=== PATIENT | female | born 1935 | race Caucasian/White ===

== ENCOUNTER 2019-12-26 08:51 | Inpatient (IN) | payer MEDICARE, OTHER, SELFPAY ==
[2019-12-26] VITALS (24 sets, daily range): BP systolic 121–177; BP diastolic 53–103; PULSE 55–69; RESP 2–28; TEMP 36.4–36.7; O2SAT 82–100
--- NOTE | ~2019-12-26 | NM_ITS ---
NM pulmonary perfusion INDICATION: Shortness of breath. Elevated d-dimer. TECHNIQUE: 5.1 mCi Tc 99m MAA was injected intravenously for perfusion images. Multiple images were then acquired. COMPARISON: Chest x-ray dated 12/26/2019 FINDINGS: The comparison chest radiograph demonstrates no pulmonary infiltrates or pleural fluid. The re are small perfusion abnormalities of the right lung including the mid and apex regions. There are moderate. Fusion abnormalities of the left mid and upper lung zones. IMPRESSION: 1: Multiple bilateral perfusion abnormalities, largest in the left mid and upper lung. Reviewed, dictated and finalized at location A. IMPRESSION: 1: Multiple bilateral perfusion abnormalities, largest in the left mid and uppe r lung.
--- NOTE | ~2019-12-26 | XR_ITS ---
EXAMINATION: XR chest 1V portable DATE: 12/26/2019 10:00 INDICATION: Chest pain. TECHNIQUE: A single frontal view of the chest was obtained. COMPARISON: Chest 2 views 11/04/2018, abdomen MRI 01/21/2010 FINDINGS: There is chronic elevation of left hemidiaphragm. There are mild airspace opacities in the lower lung zones, left worse than right. No pleural effusion or pneumothorax. Cardiomegaly is noted. There is an old fracture of proximal right humerus with nonunion. IMPRESSION: 1. Mild airspace opacities in the lower lung zones, left worse than right, consistent with atelectasi s versus pneumonia. 2. Cardiomegaly. Reviewed, dictated and finalized at location A. IMPRESSION: 1. Mild airspace opacities in the lower lung zones, left worse than right, cons istent with atelectasis versus pneumonia. 2. Cardiomegaly.
--- NOTE | ~2019-12-26 | XR_ITS ---
EXAMINATION: XR barium swallow modified DATE: 12/28/2019 14:20 INDICATION: Dysphagia. TECHNIQUE: The patient was given barium-containing material of multiple consistencies to swallow by yoav howell speech pathologist while I performed fluoroscopy. Dose-area product was 1.318 Gy-cm2. 2 minutes fluoroscopy time FINDINGS: Oral Stage: Diffuse premature spillage to the piriform sinus Pharyngeal Phase: Reduced laryngeal elevation Reduced tongue base retraction Vallecular residue Laryngeal penetration Aspiration, silent Cervical/Esophageal Stage: Unremarkable IMPRESSION: Modified esophagram findings as above. Please refer to the speech therapy report [facility]. Reviewed, dictated and finalized at Location A. Reviewed, dictated and finalized at location A. IMPRESSION: Modified esophagram findings as above. Please refer to the speech t herapy report for specific recommendations.
--- NOTE | ~2019-12-26 | CT_ITS ---
EXAMINATION: CTA chest PE abdomen DATE: 12/27/2019 12:17 INDICATION: Shortness of breath. TECHNIQUE: Computed tomography angiography (CTA) of the chest was performed with 100 mL Omnipaque-350 intravenous contrast timed to evaluate the pulmonary arteries. Coronal maximum intensity projection 3D-reconstructions were created by the technologist. Computed tomography (CT) of the abdomen was perf ormed with intravenous contrast. Automated exposure control and iterative reconstruction technique we re employed. The dose-length product was 1622.73 mGy-cm. COMPARISON: Chest CT 12/26/2019 FINDINGS: CTA chest: Motion artifact is noted. There is mild atelectasis bilaterally. There is mild scarring in paraspinal right lower lobe. There is chronic elevation of left hemidiaphragm. There is a 3 mm nodul e in right upper lobe, likely benign. There is mosaic attenuation in the lungs, likely small airways disease. A calcified right lung nodule and calcified right hilar lymph nodes are consistent with old granulomatous disease. No pleural effusion. There is a 2.3 cm nodule in right thyroid lobe, likely ne eding no further evaluation given the patient's age. Cardiomegaly is noted. No pericardial effusion. There is no pulmonary embolus. There is severe thoracic spondylosis. There is a hemangioma in T12 lazaro tebral body. CT abdomen: An 8 mm low-attenuation mass in the liver is too small to characterize, but likely a cyst . There are changes of cholecystectomy. The spleen is small. The pancreas, adrenal glands, and left k idney are normal. There is a 7 mm cyst in right kidney. There is diverticulosis of the colon without evidence of diverticulitis. There are no dilated loops of bowel. There are no pathologically enlarged lymph nodes. There is no free intraperitoneal fluid. There are chronic compression fractures of L2 a nd L3. There is moderate lumbar spondylosis. IMPRESSION: 1. No pulmonary embolus. 2. Mild scarring in paraspinal right lower lobe. 3. Mosaic attenuation in the lungs, likely small airways disease. 4. Chronic elevation of left hemidiaphragm. 5. Cardiomegaly. Reviewed, dictated and finalized at location A.
--- NOTE | ~2019-12-26 | CT_ITS ---
EXAMINATION:CT chest wo con DATE: 12/26/2019 13:18 INDICATION: Shortness of breath. TECHNIQUE: Computed tomography (CT) of the chest was performed without intravenous contrast. Automate d exposure control and iterative reconstruction technique were employed. The dose-length product (DLP ) was 214.93 mGy-cm. COMPARISON: Chest single view 12/26/2019 FINDINGS: Motion artifact is noted. There is mild scarring in paraspinal right lower lobe. There is c hronic elevation of left hemidiaphragm. There is mild atelectasis bilaterally. Calcified right hilar lymph nodes are consistent with old granulomatous disease. No pleural effusion. There is a 2.3 cm nod ule in right thyroid lobe, likely needing no further evaluation given the patient's age. Cardiomegaly is noted. No pericardial effusion. There are changes of cholecystectomy. There is severe thoracic sp ondylosis. There are chronic compression fractures of T12 on L1. There is levocurvature of upper thor acic spine. There is a hemangioma in T2 vertebral body. IMPRESSION: 1. Mild scarring in paraspinal right lower lobe. 2. Chronic elevation of left hemidiaphragm. 3. Cardiomegaly. Reviewed, dictated and finalized at location A.
--- NOTE | ~2019-12-26 | US_ITS ---
EXAMINATION: US venous doppler [facility] DATE: 12/27/2019 12:02 INDICATION: Lower limb edema. TECHNIQUE: Grayscale ultrasound images without and with compression and Doppler ultrasound images of the bilateral lower extremity veins were obtained. COMPARISON: Ultrasound 09/22/2012 FINDINGS: The visualized portions of right common femoral vein, profunda (deep) femoral vein, femoral vein, pop liteal vein, posterior tibial veins, and greater saphenous vein outflow are patent. The visualized portions of left common femoral vein, profunda femoral vein, femoral vein, popliteal v ein, posterior tibial veins, and greater saphenous vein outflow are patent. IMPRESSION: 1. No deep venous thrombosis. Reviewed, dictated and finalized at location A.
--- NOTE | 2019-12-26 09:23 | PC.NURSE ---
Pt voided via bedpan. Note patient is alert, oriented, and friendly since her son has arrived. States she knows she's waiting to maybe go somewhere else. Kristian from [employer] states has faxed papers to [facility] and is hoping to hear back in approx 1 hr.
--- NOTE | 2019-12-26 09:26 | ED.SOB ---
HPI - SOB/Dyspnea General Chief Complaint: Shortness of Breath/Dyspnea Stated Complaint: SOB Time Seen by Provider: 12/26/19 09:24 Source: patient and EMS Mode of arrival: EMS Limitations: no limitations History of Present Illness HPI Narrative: Patient is an 84-year-old female brought in by EMS from a longterm due to possible aspiration low O2 sat. Per EMS, was told that she could have aspirated her food last night at the longterm and when they checked her oxygen saturation that it was low. Patient was placed on oxygen and route by EMS and now patient has no complaints, states that she is feeling better now that she has oxygen. Patient Denies any chest pain, shortness of breath, abdominal pain, nausea vomiting or fever. Related Data Home Medications Medication Instructions Recorded Confirmed cholecalciferol (vitamin D3) 125 5,000 unit PO DAILY 04/26/19 mcg (5,000 unit) capsule citalopram 20 mg tablet 20 mg PO DAILY 04/26/19 clopidogrel 75 mg tablet 75 mg PO DAILY 04/26/19 levetiracetam 500 mg tablet 500 mg PO Q12H 04/26/19 multivitamin 1 tablet PO DAILY 04/26/19 rosuvastatin 10 mg tablet 10 mg PO DAILY 04/26/19 sodium chloride 1 gram tablet 1,000 mg PO DAILY 04/26/19 torsemide 10 mg tablet 10 mg PO QAM 04/26/19 trazodone 50 mg tablet 50 mg PO .QHS tablet 04/26/19 vitamin E 400 unit capsule 400 unit PO DAILY 04/26/19 Systane (PF) 12/26/19 Allergies Allergy/AdvReac Type Severity Reaction Status Date / Time iodine Allergy Unknown Unknown Verified 12/26/19 09:10 meperidine Allergy Unknown Unknown Verified 12/26/19 09:10 Sulfa (Sulfonamide Allergy Unknown Unknown Verified 12/26/19 09:10 Antibiotics) Review of Systems Review of Systems: All systems reviewed & are unremarkable except as noted in HPI and below Constitutional: Constitutional: Denies body ache(s), Denies chills, Denies excessive sweating, Denies fatigue, Denies fever(s), Denies headache(s), Denies lethargy, Denies malaise, Denies weakness and Denies weight loss Eyes: Eyes: Denies blurry vision, Denies change in vision and Denies loss of vision ENT: Denies dizziness, Denies ear discharge, Denies headache(s), Denies lip swelling, Denies epistaxis, Denies nasal congestion, Denies neck pain, Denies throat swelling and Denies tongue swelling Cardiovascular: Cardiovascular: Denies chest pain, Denies chest pain at rest, Denies chest pain with activity, Denies diaphoresis, Denies rapid heart rate, Denies edema, Denies irregular heart rhythm, Denies lightheadedness, Denies palpitations, Denies dyspnea and Denies dyspnea on exertion Respiratory: Respiratory: Reports chest congestion, Reports cough, Denies hemoptysis, Reports dyspnea and Denies dyspnea on exertion Gastrointestinal: Gastrointestinal: Denies abdominal pain, Denies melena, Denies hematochezia, Denies diarrhea, Denies nausea, Denies vomiting and Denies hematemesis Musculoskeletal: Musculoskeletal: Denies abnormal gait, Denies deformity, Denies joint swelling, Denies limited range of motion, Denies neck pain and Denies numbness Neurologic: Denies Abnormal speech present, Denies abnormal gait, Denies confusion, Denies dizziness, Denies headache(s), Denies focal weakness, Denies loss of vision, Denies numbness, Denies Other visual disturbances, Denies Sensory deficit (Neuro) and Denies weakness Psychiatric: Psychiatric: Denies confusion, Denies depression, Denies auditory hallucinations, Denies homicidal ideation and Denies suicidal ideation Endocrine: Endocrine: Denies cold intolerance, Denies excessive sweating, Denies fatigue, Denies heat intolerance and Denies palpitations Hematologic/Lymphatic: Hematologic/Lymphatic: Denies easy bleeding and Denies easy bruising Allergic/Immunologic: Allergic/Immunologic: Denies lip swelling, Denies throat swelling and Denies tongue swelling [facility] Family History Family History (System 01/07/19 @ 13:13 by Araceli Christopher) Mother Hypertension
[2019-12-26] MEDS: ALBUTEROL SULFATE NEB 2.5 MG/0.5 ML INH 5 MG INHALATION (09:47)
[2019-12-26] MEDS: IPRATROPIUM BR 0.02% INH SOLN 0.5 MG/2.5 ML VIAL INHALATION (09:47)
--- NOTE | 2019-12-26 09:50 | PC.NURSE ---
RT at bedside for UDT.
[2019-12-26 09:52] LABS: Basophils Absolute Auto 0.1 K/mm3 (0.0-0.1); Eosinophils Absolute Auto 0.4 K/mm3 (0-0.3); Eosinophils Percent Auto 6.2 % (0-4.4); Hematocrit 43.4 % (37.0-47.0); Hemoglobin 14.6 g/dL (12.0-15.0); Immature Granulocyte Absolute 0.01 K/mm3 (0.00-0.031); Immature Granulocyte Percent A 0.2 % (0-0.5); Lymphocytes Absolute Auto 1.94 K/mm3 (0.9-3.2); Lymphocytes Percent Auto 32.6 % (18.3-44.2); Mean Corpuscular HGB Conc 33.6 g/dl (32-36); Mean Corpuscular Hemoglobin 30.9 pg (26-34); Mean Corpuscular Volume 91.8 fl (80-100); Mean Platelet Volume 9.7 fl (7.4-10.4); Monocytes Absolute Auto 0.7 K/mm3 (0.1-0.6); Monocytes Percent Auto 11.6 % (2.6-8.5); Neutrophils Absolute Auto 2.9 K/mm3 (1.3-6.7); Neutrophils Percent Auto 48.4 % (45.5-73.1); Platelet Count Result 249 k/mm3 (150-375); Red Blood Count 4.73 M/mm3 (4.2-5.4); Red Cell Distribution Width 13.1 % (11.5-14.5)
[2019-12-26 10:01] LABS: Prothrombin Time 12.9 Seconds (11.1-14.7)
[2019-12-26 10:04] LABS: Lactic Acid Reflex 1.2 mmol/L (0.7-2.1)
[2019-12-26 10:04] LABS: Anion Gap 5 mmol/L (8-16); Blood Urea Nitrogen 16 mg/dL (7-17); Calcium 9.6 mg/dL (8.4-10.2); Carbon Dioxide 32 mmol/L (22-30); Chloride 103 mmol/L (98-107); D Dimer 0.88 ug/mL (<0.48); Estimated Glomerular Filt Rate 53; Glucose 100 mg/dL (65-105); Potassium 4.9 mmol/L (3.4-5.0); Sodium 140 mmol/L (137-145)
[2019-12-26 10:16] LABS: Troponin I < 0.012 ng/mL (0.000-0.034)
[2019-12-26 13:02] LABS: Alveolar/Arterial O2 Gradient 25.1 mmHg; Base Excess ABG -1.7 mEq/l (+/-2.0); Carboxyhemoglobin 0.9 % THb (0-2.0); Fractional Inspired Oxygen 21 %; HCO3 ABG 23.5 mEq/l (22.0-26.0); Methemoglobin ABG 0.1 %THb (0-1.5); Oxygen Content ABG 19.3 %vol (16.0-22.0); Oxygen Saturation ABG 94.6 % (95.0-100.0); Oxyhemoglobin 93.7 % THb (90.0-100.0); PCO2 ABG 41.7 mmHg (35.0-45.0); PO2 ABG 74.7 mmHg (80.0-100.0); PO2 FiO2 Ratio Arterial Blood 3.56 %; Reduced Hemoglobin 5.3 %THb (0-5.0); Total Hemoglobin 14.6 g/dL (12.0-18.0); pH ABG 7.369 (7.350-7.450)
[2019-12-26 13:03] LABS: Device ROOM AIR; Site Drawn RIGHT BRACHIAL
--- NOTE | 2019-12-26 13:31 | PC.NURSE ---
Pt to nuclear med via stretcher.
--- NOTE | 2019-12-26 13:50 | PC.NURSE ---
Pt returns from [facility] unable to perform test due to no IV site.
--- NOTE | 2019-12-26 14:10 | PC.NURSE ---
Multiple attempts at IV access per DUGLAS Cruz unsuccessful. Dr. Dyer made aware. Pt continues to deny shortness of breath. spo2 95-99% room air.
--- NOTE | 2019-12-26 15:30 | PC.NURSE ---
Spoke with ELVIA dope dry house operator - unable to get IV in ER - multiple sticks and multiple attempts with ultrasound IV. Calling Barron in for IV - have 4 hours to arrive. Order placed for midline. Td vascular not available all week.
--- NOTE | 2019-12-26 18:28 | ADMGEN ---
This patient, Emmy Tavarez, was admitted to [facility] Surg Room 323-01. Patient/family oriented to hospital policies and general routines including ID bracelet, bed and alarms, visiting hours, pain management, procedures, bathroom and other care routines, personal items, smoking policy, room service/diet, and visiting hours. Information on how to activate the Rapid Response Team has been discussed. Patient/Family are encouraged to report perceived risks to care and to ask questions if they do not understand what they are told or what they should do.
[2019-12-26] MEDS: SALINE LOCK FLUSH 10 ML IV PUSH (21:32)
--- NOTE | 2019-12-26 22:09 | PM.IMHP ---
H&P: HPI History of Present Illness Date/Time: 12/26/19 22:09 Chief complaint: dyspnea Narrative: Emmy Tavarez is a 84 year old female Was brought to the hospital via ambulance from the senior care. They thought that maybe she had choked on food last night an aspirated her food last night when they checked her oxygen levels they were low. Patient was placed on oxygen and brought to the hospital. She had no chest pain. No shortness of breath. The patient has a history of dementia and is a very poor historian. She does not have a white count. However her D-dimer slightly elevated at 0.88. Your was having difficulty get an IV placed in her and they were unable to do a V/Q scan. Patient has iodine allergy and they were not able to do a CT scan at this time and +stated have IV access. Patient was admitted to observation and a PICC line was placed and they were able to do a V/Q scan. Troponin is negative. Patient does have some edema to her lower extremities. Chest x-ray was read as mild airspace opacities in the lower lung zones left worse than the right consistent with atelectasis versus pneumonia cardiomegaly. CT of the chest was performed without contrast. Mild scarring in pairs spinal right lower lobe. Chronic elevation left hemidiaphragm. Cardiomegaly. Patient was listed as a DNR. It looks like her daughter Kelly is listed as the power assistant county attorney. One of the staff members inform me that the patient's son wanted her to be a full code. However patient is listed as a DNR and the son is not listed as a power assistant county attorney. Patient's V/Q scan was read as multiple bilateral perfusion abnormalities largest in the left mid and upper lung. Patient was empirically placed on anticoagulation. Patient is admitted to observation and is on room air at this time. She is here due to the elevated D-dimer rule out PE she has observation on medical floor date of service 12/26/2019 Review of Systems Review of Systems: All systems reviewed & are unremarkable except as noted in HPI and below Constitutional: Constitutional: Reports as per HPI and Reports no additional constitutional complaints Eyes: Eyes: Reports as per HPI and Reports no additional eye complaints ENT: Reports system reviewed and no additional complaints, except as documented and Reports Normal hearing present Cardiovascular: Cardiovascular: Reports no additional cardiovascular complaints Respiratory: Respiratory: Reports no additional respiratory complaints and Reports no additional respiratory complaints Gastrointestinal: Gastrointestinal: Reports as per HPI and Reports no additional gastrointestinal complaints Musculoskeletal: Musculoskeletal: Reports no additional musculoskeletal complaints Integumentary/Breasts: Skin/Breast: Reports system reviewed and no additional complaints, except as docu and Reports as per HPI Neurologic: Reports system reviewed and no additional complaints, except as documented, Reports as per HPI and Reports Normal hearing present Psychiatric: Psychiatric: Reports no additional psychiatric complaints and Reports as per HPI Endocrine: Endocrine: Reports no additional endocrine complaints Hematologic/Lymphatic: Hematologic/Lymphatic: Reports no additional hematologic/lymphatic complaints Allergic/Immunologic: Allergic/Immunologic: Reports no additional allergic/immunologic complaints PMFSH Past Medical History Medical History Dementia Depression with anxiety History of brain tumor resected in 2001 and radiation History of DVT (deep vein thrombosis) History of meningioma Hyperlipidemia Seizure disorder Surgical History Surgical History H/O: hysterectomy History of appendectomy Hx of cholecystectomy Family History Family History Mother Hypertension Other Cerebrovascular acc
[2019-12-26] MEDS: levETIRAcetam 500MG/NACL 100ML 500 MG/100 ML BAG 400 MG IVPB (23:30)
--- NOTE | 2019-12-27 | ECHO_ITS ---
Patient Info Name: Emmy Tavarez Age: 84 years : 1935 Gender: Female Ht: 67 in Wt: 201 lbs BSA: 2.11 m2 HR: 60 bpm BP: 135 / 43 mmHg Heart Rhythm: Sinus Rhythm Technical Quality: Good Exam Date: 12/27/2019 4:04 PM Exam Location: [facility] Card Pulmonary Patient Status: Inpatient Admit Date: 12/26/2019 Staff Ordering Physician: Cara Alva NP Crusher Assembler: Shane Mc RDCS Attending Provider: Shelly Borja NP Referring Physician: DEREJE LAWLER Exam Type: CA echo dop color flow w con Study Info Indications R60.0 - Localized edema Complete two-dimensional, color flow and Doppler transthoracic echocardiogram is performed with contrast to opacify the left ventricle and to improve the deliniation of the left ventricle endocardial borders. Contrast/Agitated Saline Contrast/Ag. Saline: Definity Amount: 2.00 ml Administered By: Janett Pierson RN Existing IV Access: Yes History/Risk Factors Lower extremity edema; HTN. Summary 1. Left ventricular chamber dimension is normal. 2. Definity contrast administered improved wall motion interpretation. 3. Left ventricular systolic function is normal, estimated at 65-70%. 4. There is moderately increased left ventricular wall thickness. 5. The left ventricular diastolic function is abnormal. 6. E/e' 14 is mildly elevated. 7. Left atrial chamber dimension is mildly enlarged. 8. Right atrial chamber dimension is mildly enlarged. 9. There is moderate aortic valve sclerosis. 10. There is moderate aortic valve regurgitation. 11. There is mild aortic valve stenosis based on a peak velocity of 172.61 cm/s, mean gradient of 6 mmHg, and aortic valve area of 1.92 cm2. 12. There is mild mitral valve regurgitation. 13. Mild pulmonary hypertension, estimated pulmonary arterial systolic pressure is 43 mmHg. Left Ventricle Definity contrast administered improved wall motion interpretation. E/e' 14 is mildly elevated. Left ventricular chamber dimension is normal. Left ventricular systolic function is normal, estimated at 65-70%. There is moderately increased left ventricular wall thickness. The left ventricular diastolic function is abnormal. Right Ventricle Right ventricular chamber dimension is normal. Right ventricular systolic function is normal. Left Atria Left atrial chamber dimension is mildly enlarged. Right Atria Right atrial chamber dimension is mildly enlarged. Aortic Valve The aortic valve is trileaflet. There is moderate aortic valve sclerosis. There is mild aortic valve stenosis based on a peak velocity of 172.61 cm/s, mean gradient of 6 mmHg, and aortic valve area of 1.92 cm2. There is moderate aortic valve regurgitation. Pulmonic Valve There is no pulmonic regurgitation. Mitral Valve There is no mitral valve stenosis. There is mild mitral valve regurgitation. Tricuspid Valve There is no tricuspid valve regurgitation. Mild pulmonary hypertension, estimated pulmonary arterial systolic pressure is 43 mmHg. Pericardium/Pleural There is no pericardial effusion. Aorta The aortic root size at the sinus of Valsalva is normal. Left Ventricular Outflow Tract Name Value Normal LVOT 2D
[2019-12-27] MEDS: HYDROCORTISONE SODI SUCCINATE IVPB ×3 (00:09→11:11)
[2019-12-27] MEDS: DEXTROSE 5% IVPB ×3 (00:09→11:11)
--- NOTE | 2019-12-27 00:20 | PC.NURSE ---
@2612 this nurse called NICOL Mendoza and verified with Melanie RN that Emmy can receive the CTA that is scheduled for tomorrow. Consent signed by both nurses and placed in the patients chart.
[2019-12-27] MEDS: SALINE LOCK FLUSH 10 ML IV PUSH ×3 (05:26→20:56)
[2019-12-27 05:59] VITALS: BP 132/60; PULSE 58; RESP 20; TEMP 36.8; O2SAT 95
--- NOTE | 2019-12-27 11:21 | PCSTNOTE ---
ST attempted Bedside Swallow Evaluation; patient was receiving bed bath at the time (11:15) and is scheduled for a procedure at 12:00. Will attempt later today if patient availability allows or tomorrow.
[2019-12-27] MEDS: levETIRAcetam 500MG/NACL 100ML 500 MG/100 ML BAG 400 MG IVPB ×2 (12:40→20:52)
--- NOTE | 2019-12-27 12:58 | PM.IMPN ---
Progress Note: A&P Assessment and Plan (1) Elevated d-dimer: Code(s): R79.89 - Other specified abnormal findings of blood chemistry Status: Acute Assessment and Plan: the patient has a iodine allergy so we are giving her IV premedication of IV hydrocortisone and IV Benadryl. PICC line placed because she had no IV access. D-dimer could be benign. checking venous Dopplers today - remains pending. abnormality in the V/Q scan CTA showed: No pulmonary embolus.Mild scarring in paraspinal right lower lobe. Mosaic attenuation in the lungs, likely small airways disease.Chronic elevation of left hemidiaphragm. Cardiomegaly. empirically started her on subcu Lovenox. history of having a DVT in the past. (2) Seizure disorder: Code(s): G40.909 - Epilepsy, unspecified, not intractable, without status epilepticus Status: Chronic Assessment and Plan: patient had a brain tumor that was removed a resected in the past. home PO Keppra changed to IV Keppra . patient had a choking episode 2 nights ago currently NPO for testing swallow study ordered and pending. (3) Hyperlipidemia: Code(s): E78.5 - Hyperlipidemia, unspecified Status: Chronic Assessment and Plan: Patient is NPO at this time. She is on rosuvastatin at home. If she passes her swallow study with possibly restart all of her medications again. (4) Depression with anxiety: Code(s): F41.8 - Other specified anxiety disorders Status: Chronic Assessment and Plan: p.r.n. Ativan ordered for night-time currently NPO but will restart her home oral citalopram. (5) Dementia: Code(s): F03.90 - Unspecified dementia without behavioral disturbance Status: Chronic Assessment and Plan: Chronic and persistent. pleasant, not combative at this time. Patient is not aware of where she is her able to answer any questions at this time. swallow study ordered. Fall precautions in place. (6) Acute dyspnea: Code(s): R06.00 - Dyspnea, unspecified Status: Acute Assessment and Plan: Tolerating room air well. COVID swab pending as she is from a correction and will need one to return. no fevers noted. chest x-ray does not appear to be COVID elevated D-dimer but PE ruled out. empirically started on subcu Lovenox. dyspnea may be related to inappropriate swallow or reflux - started protonix choking history - no current evidence of aspiratory pneumonia swallow study pending. afebrile WBC 6.0 chest auscultation is clear and does not appear to have any consolidation at this time. Subjective Date/time seen: 12/27/19 12:58 Livier states that she is feeling better today. She has having some pain in her left leg behind her knee, but feels that it is related to her mattress and that she needs a better bed. She is not wanting pain medicine for that discomfort. She is not having any trouble communicating and talking. She is very hard of hearing. No sign of shortness of breath or difficulty getting air. She denies chest pain or chest pressure at this time. She is about to undergo a DVT ultrasound of her lower extremities as the electronic security technician is in the room with her as well. It is difficult to get a good history from her as she is a poor historian, getting confused about where she lives and her health history facts. Review of Systems Review of Systems: All systems reviewed & are unremarkable except as noted in HPI and below Constitutional: Constitutional: Reports as per HPI and Reports no additional constitutional complaints Eyes: Eyes: Reports as per HPI and Reports no additional eye complaints ENT: Reports system reviewed and no additional complaints, except as documented Cardiovascular: Cardiovascular: Reports no additional cardiovascular complaints Respiratory: Respiratory: Reports no additional respiratory complaints and Reports no additional respiratory complaints Gas
[2019-12-27 14:00] VITALS: BP 135/43; PULSE 53; RESP 20; TEMP 36.1; O2SAT 94
[2019-12-27 14:10] LABS: SARS-CoV-2 RNA PCR Negative
--- NOTE | 2019-12-27 15:41 | PCPTNOTE ---
Attempted PT evaluation however pt declined. Will attempt at a later date/time.
[2019-12-27] MEDS: PERFLUTREN LIPID MICROSPHERES 1.5 ML VIAL DILUTED TO 10 ML TOTAL VOLUME IV PUSH (16:34)
[2019-12-27] MEDS: SODIUM CHLORIDE 0.9% IV 250 ML 100 ML IV CONT (17:59)
[2019-12-27] MEDS: CHOLECALCIFEROL 1,000 UNITS TABLET 5000 UNITS PO (18:00)
[2019-12-27] MEDS: PANTOPRAZOLE SODIUM IV 40 MG VIAL IV PUSH (18:01)
[2019-12-27] MEDS: CLOPIDOGREL BISULFATE 75 MG TABLET PO (18:01)
[2019-12-27] MEDS: MULTIVITAMINS THERAPEUTIC TAB (*BKC) 1 TABLET PO (18:01)
[2019-12-27] MEDS: ROSUVASTATIN 10 MG TABLET PO (18:01)
[2019-12-27] MEDS: SODIUM CHLORIDE 1 GM TABLET PO (18:02)
[2019-12-27] MEDS: CITALOPRAM HYDROBROMIDE 20 MG TABLET PO (18:02)
[2019-12-27] MEDS: VITAMIN E 400 UNIT CAPSULE PO (19:42)
[2019-12-27] MEDS: TORSEMIDE 10 MG TABLET PO (19:42)
[2019-12-27] MEDS: LORazepam INJ (*CRX) 2 MG/ML VIAL 0.5 MG IV PUSH (20:52)
[2019-12-27] MEDS: traZODone HCL 50 MG TABLET PO (20:52)
[2019-12-27 22:00] VITALS: BP 115/42; PULSE 52; RESP 20; TEMP 37.2; O2SAT 95
[2019-12-28] MEDS: SALINE LOCK FLUSH 10 ML IV PUSH ×3 (05:10→21:19)
[2019-12-28 05:52] VITALS: BP 160/54; PULSE 52; RESP 18; TEMP 37; O2SAT 97
[2019-12-28 08:07] LABS: Alanine Aminotransferase 10 U/L (4-35); Albumin Level 3.4 g/dL (3.5-5.1); Alkaline Phosphatase 92 U/L (38-126); Anion Gap 4 mmol/L (8-16); Aspartate Amino Transferase 27 U/L (14-36); Bilirubin,Total 0.6 mg/dL (0.2-1.3); Blood Urea Nitrogen 23 mg/dL (7-17); Calcium 9.2 mg/dL (8.4-10.2); Carbon Dioxide 28 mmol/L (22-30); Chloride 104 mmol/L (98-107); Estimated CRCL calculation 47 ml/min; Estimated Glomerular Filt Rate 60; Glucose 100 mg/dL (65-105); Magnesium 2.1 mg/dL (1.6-2.3); Phosphorus 3.1 mg/dL (2.5-4.5); Potassium 3.6 mmol/L (3.4-5.0); Sodium 136 mmol/L (137-145)
[2019-12-28 08:10] LABS: Basophils Absolute Auto 0.1 K/mm3 (0.0-0.1); Basophils Percent Auto 0.5 % (0.2-1.2); Eosinophils Absolute Auto 0.1 K/mm3 (0-0.3); Eosinophils Percent Auto 0.9 % (0-4.4); Hematocrit 37.3 % (37.0-47.0); Hemoglobin 12.6 g/dL (12.0-15.0); Immature Granulocyte Absolute 0.03 K/mm3 (0.00-0.031); Immature Granulocyte Percent A 0.3 % (0-0.5); Lymphocytes Absolute Auto 2.48 K/mm3 (0.9-3.2); Lymphocytes Percent Auto 25.8 % (18.3-44.2); Mean Corpuscular HGB Conc 33.8 g/dl (32-36); Mean Corpuscular Hemoglobin 30.7 pg (26-34); Mean Platelet Volume 10.2 fl (7.4-10.4); Monocytes Percent Auto 10.2 % (2.6-8.5); Neutrophils Percent Auto 62.3 % (45.5-73.1); Platelet Count Result 237 k/mm3 (150-375); Red Cell Distribution Width 13.3 % (11.5-14.5); White Blood Count 9.6 K/mm3 (4.5-10.0)
[2019-12-28] MEDS: levETIRAcetam 500MG/NACL 100ML 500 MG/100 ML BAG 400 MG IVPB ×2 (09:11→21:11)
--- NOTE | 2019-12-28 10:07 | PM.IMPN ---
Progress Note: A&P Assessment and Plan (1) Elevated d-dimer: Code(s): R79.89 - Other specified abnormal findings of blood chemistry Status: Acute Assessment and Plan: PICC line placed because she had no IV access. D-dimer could be benign. venous Dopplers showed no DVTs abnormality in the V/Q scan CTA showed: No pulmonary embolus.Mild scarring in paraspinal right lower lobe. Mosaic attenuation in the lungs, likely small airways disease.Chronic elevation of left hemidiaphragm. Cardiomegaly. empirically on subcu Lovenox. history of having a DVT in the past. (2) Seizure disorder: Code(s): G40.909 - Epilepsy, unspecified, not intractable, without status epilepticus Status: Chronic Assessment and Plan: patient had a brain tumor that was removed a resected in the past. home PO Keppra changed to IV Keppra . patient had a choking episode 3 nights ago no signs or reports of seizure activity since admission Speech evaluation completed yesterday and dietary recommendations have been in place since then. Orders for modified barium swallow evaluation pending. (3) Hyperlipidemia: Code(s): E78.5 - Hyperlipidemia, unspecified Status: Chronic Assessment and Plan: Speech evaluation completed yesterday and dietary recommendations have been in place since then. Orders for modified barium swallow evaluation pending. on rosuvastatin at home. (4) Depression with anxiety: Code(s): F41.8 - Other specified anxiety disorders Status: Chronic Assessment and Plan: p.r.n. Ativan ordered for night-time restarted her home oral citalopram. (5) Dementia: Code(s): F03.90 - Unspecified dementia without behavioral disturbance Status: Chronic Assessment and Plan: Chronic and persistent. pleasant, not combative at this time. poor health historian Speech evaluation completed yesterday and dietary recommendations have been in place since then. Orders for modified barium swallow evaluation pending. Fall precautions in place. PT/OT ordered, ST yasmeen (6) Acute dyspnea: Code(s): R06.00 - Dyspnea, unspecified Status: Acute Assessment and Plan: RESOVED. Tolerating room air well. COVID Negative. Will return to her alf at discharge. no fevers noted. WBC 6.0 and 9.6 today chest auscultation is clear and does not appear to have any consolidation at this time. chest x-ray does not appear to be COVID elevated D-dimer at admission but PE ruled out. empirically started on subcu Lovenox. dyspnea may be related to inappropriate swallow or reflux - started oral protonix choking history - no current evidence of aspiratory pneumonia - Modified barium swallow evaluation pending. ST may need to be continued after discharge. (7) Choking episode: Code(s): R09.89 - Other specified symptoms and signs involving the circulatory and respiratory systems Status: Acute Assessment and Plan: Admitted due to dyspnea and choking episode was made NPO at admission Speech evaluation completed yesterday and dietary recommendations have been in place since then. Orders for modified barium swallow evaluation pending. Subjective Date/time seen: 12/28/19 10:07 Emmy is doing much better today, states she is feeling better than yesterday, and feels like she could go home today. She denies any trouble breathing, denies shortness of breath and dyspnea and was able to carry on a conversation with me. She is very very hard of hearing. She was getting up to a chair with the physical therapist at the time of my exam. She was able to hold herself in a sitting position on the side of the bed. Speech evaluation completed yesterday and dietary recommendations have been in place since then. Orders for modified barium swallow evaluation pending. Review of Systems Review of Systems: All systems reviewed & are unremarkable except as noted in H
[2019-12-28] MEDS: CITALOPRAM HYDROBROMIDE 20 MG TABLET PO (11:45)
[2019-12-28] MEDS: PANTOPRAZOLE SODIUM IV 40 MG VIAL IV PUSH (11:45)
[2019-12-28] MEDS: CLOPIDOGREL BISULFATE 75 MG TABLET PO (11:45)
[2019-12-28] MEDS: MULTIVITAMINS THERAPEUTIC TAB (*BKC) 1 TABLET PO (11:45)
[2019-12-28] MEDS: ROSUVASTATIN 10 MG TABLET PO (11:45)
[2019-12-28] MEDS: TORSEMIDE 10 MG TABLET PO (11:46)
[2019-12-28] MEDS: VITAMIN E 400 UNIT CAPSULE PO (11:46)
[2019-12-28 14:00] VITALS: BP 129/60; PULSE 56; RESP 20; TEMP 36.9; O2SAT 97
--- NOTE | 2019-12-28 16:32 | PCSTNOTE ---
Please refer to the Modified Barium Swallow Evaluation in the EMR.
--- NOTE | 2019-12-28 17:24 | P.PNCROSS_ITS ---
Event Note Event Note Event Note: Late this afternoon, I received a message from Sonja, the progressive care manager, for Emmy, that I should call her daughter Kelly at [phone]. I did just now get off the phone with Kelly. I informed her of her mother's modified barium swallow evaluation results. Kelly voiced understanding that Emmy is aspirating with liquids as well as with foods. Even with modified foods and modified liquids. She understands that no matter what modifications are made, that her mother is experiencing some amount of aspiration. Kelly understands that her mother is at risk for developing aspiratory pneumonia, other complications, and may have a difficult time recovering from any of those complications. I offered to place feeding tube, even an NG temporary feeding tube, but Kelly stated that her mother would not want that and that she and her siblings would not want that. Kelly voiced to me that she wanted her mother to return to the [facility] and to return to her original mechanical soft diet (Minced and Moist) that she had already been on there. When I discussed and recommended thickened liquids for her mother, Kelly stated that she would prefer her mother to go back on regular thin liquids. Kelly's reasoning was that [facility] thickened liquids at the [facility] and soon discovered that her mother was sneaking into the bathroom to drink water as Emmy hated the thickened liquids at mealtime. And Kelly felt that Emmy was at risk for becoming dehydrated as well because she was not getting enough fluid in and refusing the thickened liquids. The patient should start speech therapy, PT, and OT at the [facility], where she lives. She will continue on the same diet consistency she that she has been on at discharge.
[2019-12-28 22:00] VITALS: BP 138/55; PULSE 51; RESP 18; TEMP 36.3; O2SAT 96
[2019-12-29 06:00] VITALS: BP 140/82; PULSE 55; RESP 18; TEMP 36.7; O2SAT 98
[2019-12-29] MEDS: SALINE LOCK FLUSH 10 ML IV PUSH ×2 (07:13→14:36)
[2019-12-29 08:00] VITALS: PULSE 55; RESP 18; O2SAT 98
[2019-12-29] MEDS: PANTOPRAZOLE SODIUM IV 40 MG VIAL IV PUSH (10:11)
[2019-12-29] MEDS: levETIRAcetam 500MG/NACL 100ML 500 MG/100 ML BAG 400 MG IVPB (10:11)
[2019-12-29] MEDS: CITALOPRAM HYDROBROMIDE 20 MG TABLET PO (10:11)
[2019-12-29] MEDS: MULTIVITAMINS THERAPEUTIC TAB (*BKC) 1 TABLET PO (10:12)
[2019-12-29] MEDS: ROSUVASTATIN 10 MG TABLET PO (10:12)
[2019-12-29] MEDS: CHOLECALCIFEROL 1,000 UNITS TABLET 5000 UNITS PO (10:13)
[2019-12-29] MEDS: VITAMIN E 400 UNIT CAPSULE PO (10:13)
[2019-12-29] MEDS: SODIUM CHLORIDE 1 GM TABLET PO (10:15)
[2019-12-29] MEDS: TORSEMIDE 10 MG TABLET PO (10:16)
[2019-12-29] MEDS: CLOPIDOGREL BISULFATE 75 MG TABLET PO (10:19)
--- NOTE | 2019-12-29 12:53 | PCPTNOTE ---
Attempted to see patient for Physical Therapy this PM. Patient shook her head no and stated, Not right now. RN notified of patient refusing PT.
--- NOTE | 2019-12-29 13:05 | PM.DS ---
DS: Admitting Diagnosis Admitting Diagnosis Admitting Diagnosis: dyspnea DS: Discharge Diagnosis Discharge Diagnosis (1) Elevated d-dimer: Code(s): R79.89 - Other specified abnormal findings of blood chemistry Status: Acute Assessment and Plan: PICC line placed in ER because she had no IV access. D-dimer benight as PE and DVT ruled out. patient stated that her left leg is alway more swollen than her right leg for many many years. venous Dopplers showed no DVTs abnormality in the V/Q scan then CTA showed: No pulmonary embolus.Mild scarring in paraspinal right lower lobe. Mosaic attenuation in the lungs, likely small airways disease.Chronic elevation of left hemidiaphragm. Cardiomegaly. empirically on subcu Lovenox. history of having a DVT in the past. Continue her Plavix Very high fall risk and seizure risk for further anticoagulation. (2) Seizure disorder: Code(s): G40.909 - Epilepsy, unspecified, not intractable, without status epilepticus Status: Chronic Assessment and Plan: patient had a brain tumor that was removed a resected in the past. home PO Keppra changed to IV Keppra . patient had a choking episode 3 nights ago no signs or reports of seizure activity since admission Speech evaluation completed yesterday and dietary recommendations have been in place since then. modified barium swallow evaluation showed silent aspiration with all consistencies. patient's daugther Kelly was informed and daughter wanted her to continue her current dietary constistencies that she was already on at the facility where she lives. Kelly feels that thickened liquids could cause Emmy to seek water from the bathroom again and may lead to dehydration too often. (3) Hyperlipidemia: Code(s): E78.5 - Hyperlipidemia, unspecified Status: Chronic Assessment and Plan: Speech evaluation completed yesterday and dietary recommendations have been in place since then. discussed modified barium swallow evaluation above on rosuvastatin at home. (4) Depression with anxiety: Code(s): F41.8 - Other specified anxiety disorders Status: Chronic Assessment and Plan: p.r.n. Ativan ordered for night-time restarted her home oral citalopram. (5) Dementia: Code(s): F03.90 - Unspecified dementia without behavioral disturbance Status: Chronic Assessment and Plan: Chronic and persistent. pleasant, not combative at this time. poor health historian Speech evaluation completed yesterday and dietary recommendations have been in place since then. Orders for modified barium swallow evaluation pending. Fall precautions in place. PT/OT ordered, ST eval - ordered at discharge. (6) Acute dyspnea: Code(s): R06.00 - Dyspnea, unspecified Status: Acute Assessment and Plan: RESOVED. Tolerating room air well. COVID Negative. Will return to her retirement at discharge. no fevers noted. WBC 6.0 and 9.6 today chest auscultation is clear and does not appear to have any consolidation at this time. chest x-ray does not appear to be COVID elevated D-dimer at admission but PE ruled out. empirically started on subcu Lovenox. dyspnea may be related to inappropriate swallow or reflux - started oral protonix choking history - no current evidence of aspiratory pneumonia - Modified barium swallow evaluation pending. ST must be continued after discharge. (7) Choking episode: Code(s): R09.89 - Other specified symptoms and signs involving the circulatory and respiratory systems Status: Acute Assessment and Plan: Admitted due to dyspnea and choking episode was made NPO at admission Speech evaluation completed yesterday and dietary recommendations have been in place since then. modified barium swallow evaluation showed silent aspiration with all consistencies. patient's daugther Kelly was informed and daughter wanted her to continue her c
--- NOTE | 2019-12-29 13:42 | PC.NURSE ---
Called report to [facility]. Spoke with Anthony ARDON.
[2019-12-29 14:00] VITALS: BP 182/70; PULSE 92; RESP 16; TEMP 36.1; O2SAT 97
--- NOTE | 2019-12-29 14:10 | PC.NURSE ---
refused Flu shot. wants to wait till she gets back to facility.
== END 2019-12-29 19:24 | DRG 206 ==
LOC: ANHED 10:33 → ANH3MEDSUR 15:56
PROVIDERS: Nurse Practitioner; Admitting Provider Internal Medicine; Emergency Provider Emergency Medicine; PCP Family Medicine; Visit Provider Nurse Practitioner
DX: T17.820A Food in other parts of respiratory tract causing asphyxiation, initial encounter (principal); R13.10 Dysphagia, unspecified; R06.09 Other forms of dyspnea; Z20.828 Contact with and (suspected) exposure to other viral communicable diseases; G40.909 Epilepsy, unspecified, not intractable, without status epilepticus; E78.5 Hyperlipidemia, unspecified; F41.8 Other specified anxiety disorders; F03.90 Unspecified dementia, unspecified severity, without behavioral disturbance, psychotic disturbance, mood disturbance, and anxiety; R79.89 Other specified abnormal findings of blood chemistry; Z86.718 Personal history of other venous thrombosis and embolism; Z91.81 History of falling
CPT/HCPCS: 36415; 36569; 36600; 71045; 71250; 71275; 74160; 78580; 80048; 80053; 82375; 82805; 83050; 83605; 83735; 84100; 84484; 85025; 85380; 85610; 85730; 87635; 92526; 92610; 92611; 93970; 94640; 96361; 96365; 96366; 96375; 96376; 97161; 99285; A9270; A9540; C1751; C8929; C9113; C9803; G0378; J1720; J1953; J2060; J7050; Q9957; Q9967; U0003

== ENCOUNTER 2020-04-06 14:58 | Emergency (ER) | payer MEDICARE, OTHER, SELFPAY ==
--- NOTE | ~2020-04-06 | XR_ITS ---
XR shoulder LT min 2V, XR humerus LT 04/06/2020 16:01 (accession [id number]), 04/06/2020 16:00 (accession [id number]) Indication: Left shoulder and arm pain after fall Procedure: 3 views left shoulder and 2 views left humerus Comparison: No prior studies for comparison. Findings: There is deformity of the left humeral head, likely related to degenerative change or remot e trauma. No acute fracture is identified. There is moderate osteoarthritis of the left glenohumeral joint. Osteopenia. Impression: 1: No acute fracture. 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 Reviewed, dictated and finalized at location A. ISION PRINTING WORKER Impression: 1: No acute fracture. 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 Impression: 1: No acute fracture. 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
--- NOTE | ~2020-04-06 | XR_ITS ---
EXAMINATION: XR hand LT min 3V DATE: 04/06/2020 17:04 INDICATION: Left hand pain. TECHNIQUE: 4 views of left hand were obtained. COMPARISON: None. FINDINGS: The second through fifth fingers are flexed on all views, which decreases sensitivity. No f racture. There is diffuse osteopenia. There is mild osteoarthritis of triscaphe joint, first carpomet acarpal joint, and some of the interphalangeal joints. IMPRESSION: 1. Mild polyarticular osteoarthritis. Reviewed, dictated and finalized at location A. TING MATERIAL REMOVER
--- NOTE | ~2020-04-06 | CT_ITS ---
EXAMINATION: CT brain wo con DATE: 04/06/2020 15:51 INDICATION: Left face injury. TECHNIQUE: Computed tomography (CT) of the head was performed without intravenous contrast. The mA wa s adjusted according to patient size. Iterative reconstruction technique was employed. The dose-lengt h product was 605.33 mGy-cm. COMPARISON: Head CT 08/17/2018 FINDINGS: There are scattered areas of low attenuation in the cerebral white matter. There is chronic encephalomalacia in the left temporal lobe. 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 There is a mass centered in the left middle skull base measuring 5.5 x 3.9 cm with lytic change of the associ ated bone. There is no intracranial hemorrhage. There is ex vacuo dilatation of temporal horn of left lateral ventricle. There are likely changes of right ocular lens replacement surgery. There are mcdowell ges of left-sided craniotomy and mastoidectomy. There is mild mucosal thickening in the ethmoid sinus es. IMPRESSION: 1. Chronic encephalomalacia in the left temporal lobe and herman. 2. Stable moderate nonspecific cerebral white matter disease, which likely represents chronic small v essel ischemic disease. 3. Left middle skull base mass, stable from 08/17/2018, consistent with a meningioma. Reviewed, dictated and finalized at location A. L PUNCH OPERATOR IMPRESSION: 1. Chronic encephalomalacia in the left temporal lobe and herman. 2. Stable moderate nonspecific cerebral white matter disease, which likely repr esents chronic small vessel ischemic disease. 3. Left middle skull base mass, stable from 08/17/2018, consistent with a mening ioma.
--- NOTE | ~2020-04-06 | CT_ITS ---
EXAMINATION: CT facial bones wo con DATE: 04/06/2020 15:51 INDICATION: Left face injury. TECHNIQUE: Computed tomography (CT) of the facial bones and maxillofacial region was performed withou t intravenous contrast. Automated exposure control and iterative reconstruction technique were employ ed. The dose-length product was 278.53 mGy-cm. COMPARISON: Head CT 08/17/2018 FINDINGS: There are likely changes of right ocular lens replacement surgery. There are changes of lef t-sided craniotomy and mastoidectomy. There is a mass centered in the left middle skull base with inv olvement of the sella, sphenoid sinus, left cavernous sinus, left orbital apex, clivus, and left caprice ous apex. There is a permeative pattern of the skull base, consistent with changes of radiation thera py. There is severe cervical spondylosis. There are fracture deformities of the nasal bones, new from 08/17/2018. There is leftward deviation of the nasal septum. There is mild mucosal thickening in the paranasal sinuses. IMPRESSION: 1. Age-indeterminate fracture deformities of the nasal bones, new from 08/17/2018. 2. Stable mass centered in the left middle skull base, consistent with a meningioma. Reviewed, dictated and finalized at location A. CTOR MEDICAL SAFETY IMPRESSION: 1. Age-indeterminate fracture deformities of the nasal bones, new from 9. 2. Stable mass centered in the left middle skull base, consistent with a mening ioma.
[2020-04-06 14:53] VITALS: BP 108/66; PULSE 70; RESP 16; TEMP 36.7; O2SAT 94
[2020-04-06 17:41] VITALS: BP 113/46; PULSE 57; RESP 18; O2SAT 95
--- NOTE | 2020-04-06 19:02 | ED.GENADULT ---
HPI - General Adult General Chief complaint: Fall Stated complaint: fall 3 days ago/arm injury Time Seen by Provider: 04/06/20 15:13 Source: EMS and other (alf staff) Mode of arrival: ambulatory Limitations: no limitations History of Present Illness HPI narrative: Patient presents with chief complaint of left shoulder pain, left hand pain,and bruising to face after fall 2 days ago. Patient at her baseline is A&O 2 at her best. Her mentation has not changed. Patient denies any other he was areas of pain. Patient denies chest pain, shortness of breath, fever, chills or any other concerns. Related Data Home Medications Medication Instructions Recorded Confirmed citalopram 20 mg PO DAILY 04/06/20 04/06/20 clopidogrel 75 mg PO DAILY 04/06/20 04/06/20 levetiracetam 250 mg PO BID 04/06/20 04/06/20 multivitamin [TAB A MATT] 1 tablet PO DAILY 04/06/20 04/06/20 naproxen sodium [All Day Pain 220 mg PO BID 04/06/20 04/06/20 Relief] polyethylene glycol ea MISCELLANEOUS 04/06/20 propylene glycol [Systane Complete] drp 04/06/20 rosuvastatin 10 mg PO DAILY 04/06/20 04/06/20 sodium chloride 1,000 mg PO DAILY 04/06/20 04/06/20 torsemide 10 mg PO QAM 04/06/20 04/06/20 trazodone 50 mg PO HS 04/06/20 04/06/20 Allergies Allergy/AdvReac Type Severity Reaction Status Date / Time meperidine [From Demerol] AdvReac Other Verified 04/06/20 15:38 Sulfa (Sulfonamide AdvReac Other Verified 04/06/20 15:38 Antibiotics) Review of Systems Review of Systems: Narrative: CONSTITUTIONAL: Denies fever, chills, or sweats. EYES: Denies visual changes, redness, or discharge. ENT: Denies rhinorrhea, congestion, sore throat, or otalgia. CARDIOVASCULAR: Denies chest pain, palpitations, or edema. RESPIRATORY: Denies cough or dyspnea. GASTROINTESTINAL: Denies abdominal pain, nausea, vomiting, or diarrhea. GENITOURINARY: Denies dysuria or hematuria. SKIN: Reports facial bruise denies rash or itching. MUSCULOSKELETAL: Reports left shoulder, left hand denies back pain, joint pain, or myalgia. NEUROLOGIC: Denies headache, numbness, dizziness, or weakness. PSYCHIATRIC: Denies anxiety or depression. PMFSH Social History Social History Gender identity (if verbalized by the patient): Female Exam Narrative: Exam Narrative: GENERAL: well-nourished, and in no acute distress. HEAD: Normocephalic, atraumatic. EYES: PERRLA ENT: Nares clear, no rhinorrhea or epistaxis. Mucous membranes moist. Oropharynx without tonsillar hypertrophy exudate or other lesions. Bilateral TMs pearly puckett nonbulging. No hemotympanum. NECK: Supple. No adenopathy or masses. CHEST: Clear to auscultation. No respiratory distress. No wheezes rales or rhonchi HEART: Regular rate and rhythm. No murmur heard. Normal peripheral pulses. ABDOMEN: Soft, nontender, nondistended, normal active bowel sounds. EXTREMITIES: No outward signs of injury to left arm. Patent moving left arm. Mild bruising to left 2nd4 4th digits. Patient still moving them although decreased flexion, does not seem acute. Seems more arthritic movements/limitations. Normal range of motion. No lacerations or hematomas. SKIN: Small amount of bruising above left eye. Warm, dry, no rash. NEURO: No focal deficits. Alert and oriented to self and situation, not the best historian regarding fall. PSYCH: Normal mood and affect. Course Vital Signs Vital signs: Vital Signs Temperature 98.1 F 04/06/20 14:53 Pulse Rate 70 04/06/20 14:53 Respiratory Rate 16 04/06/20 14:53 Blood Pressure 108/66 04/06/20 14:53 Pulse Oximetry 94 04/06/20 14:53 Temperature 98.1 F 04/06/20 14:53 Pulse Rate 57 L 04/06/20 17:41 Respiratory Rate 18 04/06/20 17:41 Blood Pressure 113/46 L 04/06/20 17:41 Pulse Oximetry 95 04/06/20 17:41 Medical Decision Making MDM Narrative Medical decision making narrative: Patient does not have any findings of acute fractures. CTs are negative for acute findings. P
[2020-04-06 19:27] VITALS: BP 106/80; PULSE 84; RESP 16; O2SAT 97
[2020-04-06 20:36] VITALS: BP 134/71; PULSE 86; RESP 16; TEMP 36.2; O2SAT 96
== END 2020-04-06 20:38 ==
PROVIDERS: Emergency Provider Emergency Medicine; PCP Family Medicine
DX: S00.83XA Contusion of other part of head, initial encounter (principal); S60.022A Contusion of left index finger without damage to nail, initial encounter; S60.042A Contusion of left ring finger without damage to nail, initial encounter; R90.82 White matter disease, unspecified; M19.012 Primary osteoarthritis, left shoulder; M19.042 Primary osteoarthritis, left hand; G93.9 Disorder of brain, unspecified; W19.XXXA Unspecified fall, initial encounter
CPT/HCPCS: 70450; 70486; 73030; 73060; 73130; 99284

== ENCOUNTER 2020-04-13 09:12 | Inpatient (IN) | payer MEDICARE, OTHER, SELFPAY ==
[2020-04-13] VITALS (8 sets, daily range): BP systolic 106–135; BP diastolic 56–66; PULSE 81–103; RESP 16–25; TEMP 36.3–37.7; O2SAT 90–100; BMI 28.8
--- NOTE | ~2020-04-13 | XR_ITS ---
EXAMINATION: XR chest 1V portable INDICATION: Shortness of breath, COVID 19 TECHNIQUE: Portable AP chest at 0526 hours COMPARISON: 04/13/2020 FINDINGS: Bibasilar airspace opacities persist without significant change. There is slight decrease i n right upper lobe opacities. No pleural effusion or pneumothorax is identified. The cardiomediastina l silhouette is stable. 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 IMPRESSION: 1. Patchy bibasilar airspace opacities and improved right upper lobe opacities, consistent with atele ctasis versus pneumonia. Reviewed, dictated and finalized at location A. UCTION BROACHING MACHINE OPERATOR IMPRESSION: 1. Patchy bibasilar airspace opacities and improved right upper lobe opacities, consistent with atelectasis versus pneumonia.
--- NOTE | ~2020-04-13 | US_ITS ---
US renal BI 04/13/2020 16:51 Procedure: Acute renal failure Indication: Acute renal failure Comparison: No prior studies for comparison. Findings: Renal echotexture is normal bilaterally without hydronephrosis, contour deforming mass or r enal calculus. The right kidney measures 9.2 cm and left kidney measures 9.2 cm. Bladder within norm al limits. Impression: 1: Unremarkable renal ultrasound. No stones, masses or hydronephrosis. Reviewed, dictated and finalized at location B. ROL ROOM SUPERVISOR Impression: 1: Unremarkable renal ultrasound. No stones, masses or hydronephrosis.
--- NOTE | ~2020-04-13 | MR_ITS ---
EXAMINATION: MR brain/brain stem wo con EXAM DATE: 04/20/2020 18:44 INDICATION: COVID. Weakness. Meningioma. TECHNIQUE: Magnetic resonance imaging (MRI) of the brain/brain stem obtained without contrast. Stephy weber T1, axial diffusion, gradient echo (T2*), T1, T2, FLAIR sequences obtained. Correlation is made t o head CT 04/14/2020. FINDINGS: Skull base mass infiltrating the clivus, sphenoid sinus, sella turcica and encasing the lef t internal carotid artery. Surgical changes from left temporal and mastoid craniotomy with large amou nt of underlying left temporal encephalomalacia. There are no areas of restricted diffusion to suggest acute infarction. There is no acute hemorrhage seen on the T2*, a hemosiderin sensitive sequence. There is mild to moderate periventricular and sub cortical T2/FLAIR signal hyperintensity, nonspecific but probably related to small vessel ischemic di sease (microangiopathy). There is moderate prominence of the sulci and ventricles related to cerebr al atrophy. There are no extra-axial collections. Flow voids are seen in the cerebral arteries on the T2-weighted sequences consistent with their expected patency. Patient has had right-sided ocular lens surgery. IMPRESSION: 1. No acute intracranial findings. 2. Chronic skull base mass, left temporal craniotomy and underlying encephalomalacia. 3. Microangiopathy and cerebral atrophy. Reviewed, dictated and finalized at location A. TIONSHIP MANAGER IMPRESSION: 1. No acute intracranial findings. 2. Chronic skull base mass, left temporal craniotomy and underlying encephalom alacia. 3. Microangiopathy and cerebral atrophy.
--- NOTE | ~2020-04-13 | US_ITS ---
EXAMINATION: US venous doppler [facility] DATE: 04/13/2020 16:51 INDICATION: Left lower limb pain and swelling TECHNIQUE: Grayscale ultrasound images without and with compression and Doppler ultrasound images of the bilateral lower extremity veins were obtained. COMPARISON: None. FINDINGS: The visualized portions of right common femoral vein, profunda (deep) femoral vein, femoral vein, pop liteal vein, posterior tibial veins, peroneal veins, gastrocnemius vein and greater saphenous vein ou tflow are patent. Noncompressible deep venous thrombosis in the left profunda (deep) femoral vein as well as in the dis domingo left femoral and popliteal veins. The visualized portions of left common femoral vein, the proxim al to mid femoral vein and greater saphenous vein outflow are patent. At patient's request the study was terminated prior to evaluation of the veins at the left calf. IMPRESSION: 1. Deep venous thrombosis in the left profunda femoral, femoral and popliteal veins. Findings were d iscussed with Fernando Coleman, the nurse caring for the patient, at 5:00 PM. 2. No deep venous thrombosis in the right lower limb. Reviewed, dictated and finalized at location A. RD LABEL INTERNSHIP IMPRESSION: 1. Deep venous thrombosis in the left profunda femoral, femoral and popliteal veins. Findings were discussed with Fernando Coleman, the nurse caring for the nicol ent, at 5:00 PM. 2. No deep venous thrombosis in the right lower limb.
--- NOTE | ~2020-04-13 | CT_ITS ---
EXAMINATION: CT brain wo con DATE: 04/14/2020 09:16 INDICATION: Confusion TECHNIQUE: Computed tomography (CT) of the head was performed without intravenous contrast. The mA wa s adjusted according to patient size. Iterative reconstruction technique was employed. Exam dose: 68 1.00 mGy-cm total exam DLP. COMPARISON: April 06, 2020 CT brain FINDINGS: Postoperative change from left craniotomy, with chronic underlying left temporal encephalom alacia. No intracranial mass lesion or hemorrhage. No midline shift or mass effect effect. No subdural or epi dural hematoma. IMPRESSION: No acute intracranial finding or significant change since 04/06/2020 Reviewed, dictated and finalized at Location A. Reviewed, dictated and finalized at location A. RINTENDENT DRILLING
--- NOTE | ~2020-04-13 | XR_ITS ---
XR chest 1V portable 04/13/2020 10:04 Indication: Covid Infection Procedure: AP portable chest Comparison: Comparison to multiple prior studies sequentially, with oldest reviewed study dated 02/01. Findings: Patchy bilateral airspace disease, compatible with pneumonia. Cardiomegaly. No significant effusion. No pneumothorax. Impression: 1: Patchy bilateral airspace disease, compatible with pneumonia. Reviewed, dictated and finalized at location B. OOR STUDIES PROFESSOR Impression: 1: Patchy bilateral airspace disease, compatible with pneumonia.
--- NOTE | ~2020-04-13 | CT_ITS ---
EXAMINATION: CT shoulder LT wo con DATE: 04/14/2020 09:15 INDICATION: Left shoulder pain post fall TECHNIQUE: High resolution computed tomography (CT) of the left was performed without intravenous con trast. Additional sagittal and coronal reconstructions were performed. Automated exposure control and iterative reconstruction technique were employed. The dose-length product was 925.13 mGy-cm. COMPARISON: Left shoulder radiographs dated 04/06/[address] dated 12/27/2019 FINDINGS: Bone alignment is normal. No fracture. Severe left glenohumeral osteoarthritis with severe nonuniform joint space narrowing and mild subarticular cystic change at the central aspect of the humeral head and at the posterior superior aspect of the glenoid. Prominent marginal osteophytes along the humeral head and posterior glenoid. Small glenohumeral joint effusion. Moderate acromioclavicular osteoarthr itis. Mild calcific tendinitis at the distal infraspinatus tendon. Mild mosaic attenuation the visual ized left lung consistent with small airway disease. No interval change in a likely benign 4 mm left apical nodule. Left basilar atelectasis with chronic elevation of the left hemidiaphragm. Moderate th oracic spondylosis. T2 and T10 hemangiomas. IMPRESSION: 1. Severe left glenohumeral osteoarthritis and moderate acromioclavicular osteoarthritis. No acute os seous abnormality. 2. Left infraspinatus calcific tendinitis. Reviewed, dictated and finalized at location A. ATTENDANT IMPRESSION: 1. Severe left glenohumeral osteoarthritis and moderate acromioclavicular osteo arthritis. No acute osseous abnormality. 2. Left infraspinatus calcific tendinitis.
--- NOTE | 2020-04-13 09:38 | ECG_ITS ---
Measurements Intervals [place] Rate: 92 P: 66 MO: 186 QRS: -62 QRSD: 121 T: 103 QT: 366 QTc: 453 Interpretive Statements SINUS RHYTHM ATRIAL PREMATURE COMPLEX RSR' IN V1 OR V2, CONSIDER RIGHT VENTRICULAR HYPERTROPHY OR RIGHT VCD LEFT ANTERIOR FASCICULAR BLOCK LEFT VENTRICULAR HYPERTROPHY AND ST-T CHANGE ST-T WAVE ABNORMALITY IN HIGH LATERAL LEADS- CONSIDER ISCHEMIA BASELINE ARTIFACT- I, II, AVR, AVF, V1-V5 ABNORMAL ECG Electronically Signed On 04-13-2020 10:08:14 PREPARED FOODS SERVICE TEAM MEMBER by Josh Butler D.O.
[2020-04-13 09:46] LABS: Alveolar/Arterial O2 Gradient 69.8 mmHg; Base Excess ABG -4.1 mEq/l (+/-2.0); Fractional Inspired Oxygen 28 %; HCO3 ABG 20.1 mEq/l (22.0-26.0); Oxygen Content ABG 20.2 %vol (16.0-22.0); Oxygen Saturation ABG 96.7 % (95.0-100.0); Oxyhemoglobin 95.4 % THb (90.0-100.0); PCO2 ABG 34.6 mmHg (35.0-45.0); PO2 FiO2 Ratio Arterial Blood 3.18 %; pH ABG 7.383 (7.350-7.450)
[2020-04-13 09:47] LABS: Device NASAL CANNULA; Modified Allen's Test Pass; Site Drawn RIGHT RADIAL
[2020-04-13 10:02] LABS: Basophils Percent Auto 0.3 % (0.2-1.2); Eosinophils Percent Auto 0.1 % (0-4.4); Hematocrit 46.1 % (37.0-47.0); Hemoglobin 14.5 g/dL (12.0-15.0); Immature Granulocyte Absolute 0.03 K/mm3 (0.00-0.031); Immature Granulocyte Percent A 0.4 % (0-0.5); Lymphocytes Absolute Auto 2.37 K/mm3 (0.9-3.2); Lymphocytes Percent Auto 34.1 % (18.3-44.2); Mean Corpuscular HGB Conc 31.5 g/dl (32-36); Mean Corpuscular Volume 95.2 fl (80-100); Mean Platelet Volume 11.6 fl (7.4-10.4); Monocytes Absolute Auto 0.7 K/mm3 (0.1-0.6); Monocytes Percent Auto 10.5 % (2.6-8.5); Neutrophils Absolute Auto 3.8 K/mm3 (1.3-6.7); Neutrophils Percent Auto 54.6 % (45.5-73.1); Nucleated Red Blood Cells Perc 0.4 % (0.0-0.2); Platelet Count Result 175 k/mm3 (150-375); Red Blood Count 4.84 M/mm3 (4.2-5.4); Red Cell Distribution Width 15.8 % (11.5-14.5)
[2020-04-13 10:08] LABS: Add Urine Microscopic? YES; Appearance Urine Turbid (Clear); Bacteria Urine 4+ /hpf; Bilirubin Urine Negative (Negative); Blood Urine 1+ (Negative); Color Urine Yellow (Yellow); Glucose Urine UA Negative (Negative); Ketones Urine Negative (Negative); Leukocyte Esterase Ur 2+ LEU/UL (Negative); Mucus Urine Moderate /lpf; Nitrate Urine Negative (Negative); Protein Urine 2+ mg/dL (Negative); RBC Urine 51-75 /hpf (0-2); Specific Grav Ur 1.015 (1.001-1.035); Squamous Epithelial Cell Urine Moderate /hpf (Few); WBC Urine >75 /hpf
[2020-04-13 10:14] LABS: Alanine Aminotransferase 50 U/L (4-35); Albumin Level 3.6 g/dL (3.5-5.1); Alkaline Phosphatase 103 U/L (38-126); Anion Gap 10 mmol/L (8-16); Aspartate Amino Transferase 147 U/L (14-36); Bilirubin,Total 0.8 mg/dL (0.2-1.3); Blood Urea Nitrogen 81 mg/dL (7-17); Calcium 8.7 mg/dL (8.4-10.2); Carbon Dioxide 25 mmol/L (22-30); Chloride 125 mmol/L (98-107); Estimated CRCL calculation 8 ml/min; Estimated Glomerular Filt Rate 10; Glucose 106 mg/dL (65-105); INR 1.1; Potassium 4.3 mmol/L (3.4-5.0); Prothrombin Time 15.2 Seconds (11.1-14.7); Sodium 160 mmol/L (137-145)
[2020-04-13 10:15] LABS: Partial Thromboplastin Time 33.2 SECONDS (22.3-36.8)
[2020-04-13 10:18] LABS: Magnesium 2.3 mg/dL (1.6-2.3)
--- NOTE | 2020-04-13 10:40 | ED.GENADULT ---
HPI - General Adult General Chief complaint: Shortness of Breath/Dyspnea Stated complaint: SOB, COVID + Time Seen by Provider: 04/13/20 09:15 Source: EMS Mode of arrival: EMS Limitations: dementia History of Present Illness HPI narrative: Patient is 84 years old female brought to the emergency room by ambulance from [facility] because of lethargy and gradual increase of the level of weakness over the last few days. Patient tested positive for COVID-19 2 days ago. History of dementia, and DNR. Patient usually on no oxygen, oxygen saturation on room air 88%, currently on 3 L with saturation of 95%. No significant other at the bedside. Related Data Home Medications Medication Instructions Recorded Confirmed cholecalciferol (vitamin D3) 125 5,000 unit PO DAILY 04/26/19 12/26/19 mcg (5,000 unit) capsule citalopram 20 mg tablet 20 mg PO DAILY 04/26/19 12/26/19 multivitamin 1 tablet PO DAILY 04/26/19 12/26/19 vitamin E 400 unit capsule 400 unit PO DAILY 04/26/19 12/26/19 Systane (PF) 1 OPHTHALMIC (EYE) 12/26/19 clopidogrel 75 mg PO DAILY 04/06/20 04/06/20 levetiracetam 250 mg PO BID 04/06/20 04/06/20 naproxen sodium [All Day Pain 220 mg PO BID 04/06/20 04/06/20 Relief] polyethylene glycol ea MISCELLANEOUS 04/06/20 rosuvastatin 10 mg PO DAILY 04/06/20 04/06/20 sodium chloride 1,000 mg PO DAILY 04/06/20 04/06/20 torsemide 10 mg PO QAM 04/06/20 04/06/20 trazodone 50 mg PO HS 04/06/20 04/06/20 Allergies Allergy/AdvReac Type Severity Reaction Status Date / Time iodine Allergy Unknown Unknown Verified 04/13/20 09:26 meperidine Allergy Unknown Unknown Verified 04/13/20 09:26 Sulfa (Sulfonamide Allergy Unknown Unknown Verified 04/13/20 09:26 Antibiotics) acetaminophen [From Tylenol] Allergy Unknown Verified 04/13/20 09:26 Review of Systems Review of Systems: ROS unobtainable: Yes unobtainable due to medical condition and unobtainable due to mental status PMFSH Past Medical History Medical History Dementia Depression with anxiety History of brain tumor resected in 2001 and radiation History of DVT (deep vein thrombosis) History of meningioma Hyperlipidemia Seizure disorder Surgical History Surgical History H/O: hysterectomy History of appendectomy Hx of cholecystectomy Family History Family History Mother Hypertension Other Cerebrovascular accident Family history of arthritis Family history of mental disorder Social History Social History Social History: patient's paperwork from the [employer] dad she has her daughter Kelly listed as a durable power [place] attorney for healthcare. And also list [facility] care. The patient's orders code status was listed as a DNR. The orders were listed as of May of this year. However Otto son had notified the nursing staff here that he was a durable power [place] attorney for healthcare and wanted her to be a full code. No legal document has been provided to me at this time some could continue with the current orders. Smoking status: Unknown if ever smoked Second hand tobacco smoke exposure: No Alcohol intake: unknown Substance use: unknown Substance use type: does not use Gender identity (if verbalized by the patient): Female Spiritual care concerns: No Exam Narrative: Exam Narrative: General appearance: Well-developed, well-nourished, looks ill Skin: Normal color Head: Normocephalic, nontraumatic Neck: Supple, nontender Chest and respiratory: Mild diminution of air entry bilaterally mainly at the bases with few rales Heart: Regular rate/rhythm Abdomen: Soft, nontender, no organomegaly, quiet bowel sounds Neurologic: Arousable to verbal command
[2020-04-13 10:42] LABS: D Dimer > 20.00 ug/mL (<0.48)
[2020-04-13] MEDS: SODIUM CHLORIDE 0.9% IV 1,000 ML 999 ML IV CONT (10:42)
--- NOTE | 2020-04-13 12:27 | ADMGEN ---
This patient, Emmy Tavarez, was admitted to [address] [facility] Surg Room 330-01. Patient/family oriented to hospital policies and general routines including ID bracelet, bed and alarms, visiting hours, pain management, procedures, bathroom and other care routines, personal items, smoking policy, room service/diet, and visiting hours. Information on how to activate the Rapid Response Team has been discussed. Patient/Family are encouraged to report perceived risks to care and to ask questions if they do not understand what they are told or what they should do.
--- NOTE | 2020-04-13 13:24 | PM.IMHP ---
H&P: HPI History of Present Illness Date/Time: 04/13/20 13:24 Chief Complaint: Lethargy Narrative: Emmy Tavarez is a 84 year old female WHO IS A RESIDENT AT [facility]. SHE has a history of dementia and is a poor historian. She was brought To the emergency room today from the halfway due to lethargy and gradually increase in the level weakness over last 2 days. The patient did test positive for COVID-19 approximately 2 days ago. She does have history of dementia but does not wear oxygen chronically. Her oxygen level was found to be 88% and was placed on 3 L per nasal cannula oxygen and this improved her oxygen saturation is 97%. She does not typically wear oxygen at the halfway. No significant other was with her at the bedside. The patient has listed as a DNR. The patient previously had been to the emergency room here on 04/06/2020 where she was complaining of left shoulder pain. She had no acute injuries and was sent back to the halfway at that time. Greater than 20.00. Unable to perform a CT a at this time due to her creatinine level being 4.2. Her sodium level was 160. His felt that the patient was dehydrated she was started on normal saline. I am waiting for her repeat BMP. The patient was also found to be positive for a UTI. The patient does have a history of having recurrent UTIs. Urine and blood stools are pending. Of ceftriaxone in the emergency room. Patient is being admitted to inpatient status on the date of service of 04/13/2020 Review of Systems Review of Systems: ROS unobtainable: Yes unobtainable due to mental status Constitutional: Constitutional: Reports as per HPI and Reports no additional constitutional complaints Eyes: Eyes: Reports as per HPI and Reports no additional eye complaints ENT: Reports system reviewed and no additional complaints, except as documented and Reports Normal hearing present Cardiovascular: Cardiovascular: Reports no additional cardiovascular complaints Respiratory: Respiratory: Reports no additional respiratory complaints and Reports no additional respiratory complaints Gastrointestinal: Gastrointestinal: Reports as per HPI and Reports no additional gastrointestinal complaints Musculoskeletal: Musculoskeletal: Reports no additional musculoskeletal complaints Integumentary/Breasts: Skin/Breast: Reports system reviewed and no additional complaints, except as docu and Reports as per HPI Neurologic: Reports system reviewed and no additional complaints, except as documented, Reports as per HPI and Reports Normal hearing present Psychiatric: Psychiatric: Reports no additional psychiatric complaints and Reports as per HPI Endocrine: Endocrine: Reports no additional endocrine complaints Hematologic/Lymphatic: Hematologic/Lymphatic: Reports no additional hematologic/lymphatic complaints Allergic/Immunologic: Allergic/Immunologic: Reports no additional allergic/immunologic complaints PMFSH Past Medical History Medical History Dementia Depression with anxiety History of brain tumor resected in 2001 and radiation History of DVT (deep vein thrombosis) History of meningioma Hyperlipidemia Seizure disorder Surgical History Surgical History H/O: hysterectomy History of appendectomy Hx of cholecystectomy Family History Family History Mother Hypertension Other Cerebrovascular accident Family history of arthritis Family history of mental disorder Social History Social History (Updated 04/13/20 @ 13:35 by Cara Alva NP) Social History: The patient's living well has her listed as a DNR. The patient has a son and daughter listed is unclear who is the power deputy attorney general. She does have a living will that is a do not resuscitate. The patient is . She is from [facility].
[2020-04-13 13:59] LABS: Anion Gap 8 mmol/L (8-16); Blood Urea Nitrogen 82 mg/dL (7-17); Calcium 8.1 mg/dL (8.4-10.2); Carbon Dioxide 26 mmol/L (22-30); Chloride 126 mmol/L (98-107); Estimated CRCL calculation 10 ml/min; Estimated Glomerular Filt Rate 10; Glucose 112 mg/dL (65-105); Potassium 4.2 mmol/L (3.4-5.0); Sodium 160 mmol/L (137-145)
--- NOTE | 2020-04-13 14:28 | PCNSR ---
On 04/13/20, the student, Dilia Bowen, provided care and completed [facility] documentation on this patient. I have reviewed the student's documentation and agree with the findings.
--- NOTE | 2020-04-13 15:00 | PM.CNNEP ---
Assessment and Plan Assessment and plan (1) CHEVY (acute kidney injury): Code(s): N17.9 - Acute kidney failure, unspecified Status: Acute Assessment and Plan: suspect due in large part ot volume depletion/dehydration possibly worsened by diureitcs and NSAID therapy MULTIFOCAL LENS INSPECTOR agree with D5 1/2NS as this should provide some free water as well volume resuscitation check urine electrolytes, urine eosinophils, CPK, and renal ultrasound follow repeat labs and UOP (2) Hypernatremia: Code(s): E87.0 - Hyperosmolality and hypernatremia Status: Acute Assessment and Plan: indicative of a severe/significant free water deficit follow trend of sodium with IVFs may eventually need D5W IVFs (3) Pneumonia due to COVID-19 virus: Code(s): U07.1 - COVID-19; J12.82 - Pneumonia due to coronavirus disease 2019 Status: Acute Assessment and Plan: presumed etiology of hypoxia started on decadron no a candidate for remdesivir due to CHEVY/ARF follow respiratory status (4) Altered mental status: Code(s): R41.82 - Altered mental status, unspecified Status: Acute Assessment and Plan: despite history of dementia, baseline mentation better that current status suspect worsened mentation due to hypernatremia, COVID-19 infection, and UTI follow with ongoing therapy (5) Urinary tract infection: Qualifiers: Hematuria presence: without hematuria Urinary tract infection type: site unspecified Qualified Code(s): N39.0 - Urinary tract infection, site not specified Code(s): N39.0 - Urinary tract infection, site not specified Status: Acute Assessment and Plan: urinalysis highly suggestive on antibiotics follow-up on cultures Will continue to follow. History of Present Illness Reason for Consult Consult date: 04/13/20 Reason for consult: acute renal failure and hypernatremia Chief Complaint Chief complaint: covid pneumonia, uti, dehydration, chevy, History of Present Illness Narrative: All the information I have obtained from review of the electronic medical record as the patient is unable to provide me with any history due to her dementia/altered mental status. The patient is an 84-year-old female with a past medical history as outlined below who was brought to [facility] Emergency room from her detention due to lethargy as well as increasing weakness. According to the detention records, over the last 2-3 days, the patient's mentation has been worse with regard to increased lethargy associated with progressive weakness. She apparently did test positive for copious 19 approximately 2 days ago as well. Reportedly, she was hypoxic with an oxygen saturation of 88% but this improved with application of supplemental oxygen to 97% (she had to be placed on 3 L). Unfortunately, no other real significant history can be obtained given her current mental status. Workup and evaluation emergency room demonstrated lab abnormalities with a sodium of 160 and a creatinine of 4.2 as well as a urinalysis that was highly suggestive of a urinary tract infection. The concern was that these labs reflected a component of dehydration possibly worsened by and a urinary tract infection. Appropriate cultures were obtained, she was started on IV ceftriaxone, and started on IV fluids in the form of normal saline bolus followed by half normal saline an effort to provide both free water as well as volume resuscitation given her hypernatremia and acute kidney injury/acute renal failure. Renal consultation was requested due to her acute kidney injury/acute renal failure as well as her hypernatremia. From review of her records, the patient has a normal sodium and normal kidney function at baseline as of labs 4 months ago (December 2019) during her last hospitalization here. With the a for mentioned IV fluid institution, her sodium level has improved somewhat but sh
[2020-04-13 15:28] LABS: Sodium 158 mmol/L (137-145)
[2020-04-13 15:38] LABS: Erythrocyte Sedimentation Rate 37 mm/hr (0-20)
[2020-04-13 15:57] LABS: CRP 20.3 mg/dL (<1.0); Complement C3 141 mg/dL (88-165); Creatine Kinase 1216 U/L (30-135); Magnesium 2.3 mg/dL (1.6-2.3)
[2020-04-13] MEDS: DEXTROSE 5%/0.45% SOD CHL 1,000 ML 100 ML IV CONT (17:00)
[2020-04-13] MEDS: DEXAMETHASONE SOD PHOS INJ 4 MG/ML VIAL 6 MG IV PUSH (18:01)
[2020-04-13] MEDS: HEPARIN SODIUM 5,000 UNITS/ML VIAL 5500 UNITS IV PUSH (18:03)
[2020-04-13] MEDS: HEPARIN SOD/D5W 100 UNITS/ML 25,000 UNITS/250 ML BAG 12 UNITS IV CONT (18:04)
[2020-04-13 19:09] LABS: Sodium 156 mmol/L (137-145)
--- NOTE | 2020-04-13 20:50 | PC.NURSE ---
Pt from [facility] with diet order mechanical diet with thin liquids and ambulates with walker or wheelchair.
[2020-04-13] MEDS: levETIRAcetam 500MG/NACL 100ML 500 MG/100 ML BAG 400 MG IVPB (21:15)
[2020-04-13] MEDS: traZODone HCL 50 MG TABLET PO (21:36)
[2020-04-14] VITALS: BP 154/70; PULSE 77; RESP 22; TEMP 36.3; O2SAT 97
[2020-04-14 01:23] LABS: Partial Thromboplastin Time > 200.0 SECONDS (22.3-36.8)
--- NOTE | 2020-04-14 01:58 | PC.NURSE ---
0100 RIGHT RING FINGER IS NOTED TO BE BLEEDING. SMALL OPEN AREA NOTED TO THE LATERAL FINGER. pRESSURE HELD AND NO CHANGE IN BLEEDING. PRESSURE DRESSING APPLIED. HAND ELEVATED. 0130 HEPARIN PLACED ON HOLD FOR 1 HOUR DUE TO ELEVATED PTT.
[2020-04-14] MEDS: DEXTROSE 5%/0.45% SOD CHL 1,000 ML 100 ML IV CONT ×2 (02:43→15:02)
[2020-04-14 04:00] VITALS: BP 150/60; PULSE 69; RESP 22; TEMP 36.4; O2SAT 98
[2020-04-14 04:20] LABS: Creatinine Urine 171.4 mg/dL
[2020-04-14 04:23] LABS: Sodium Urine Random 28 meq/L
[2020-04-14 08:00] VITALS: BP 142/64; PULSE 73; RESP 24; TEMP 36.4; O2SAT 93
[2020-04-14 08:32] LABS: Basophils Percent Auto 0.2 % (0.2-1.2); Hematocrit 43.2 % (37.0-47.0); Hemoglobin 13.7 g/dL (12.0-15.0); Immature Granulocyte Absolute 0.05 K/mm3 (0.00-0.031); Immature Granulocyte Percent A 0.6 % (0-0.5); Lymphocytes Percent Auto 11.5 % (18.3-44.2); Mean Corpuscular HGB Conc 31.7 g/dl (32-36); Mean Corpuscular Hemoglobin 30.4 pg (26-34); Mean Platelet Volume 11.8 fl (7.4-10.4); Monocytes Absolute Auto 0.4 K/mm3 (0.1-0.6); Neutrophils Absolute Auto 7.3 K/mm3 (1.3-6.7); Neutrophils Percent Auto 83.7 % (45.5-73.1); Nucleated Red Blood Cells Perc 0.5 % (0.0-0.2); Platelet Count Result 156 k/mm3 (150-375); Red Cell Distribution Width 15.7 % (11.5-14.5); White Blood Count 8.7 K/mm3 (4.5-10.0)
[2020-04-14 08:44] LABS: Potassium 4.1 mmol/L (3.4-5.0)
[2020-04-14 08:45] LABS: Magnesium 2.3 mg/dL (1.6-2.3)
[2020-04-14 08:46] LABS: Albumin Level 3.4 g/dL (3.5-5.1); Anion Gap 6 mmol/L (8-16); Blood Urea Nitrogen 83 mg/dL (7-17); Calcium 8.6 mg/dL (8.4-10.2); Carbon Dioxide 24 mmol/L (22-30); Chloride 126 mmol/L (98-107); Estimated CRCL calculation 12 ml/min; Estimated Glomerular Filt Rate 12; Glucose 261 mg/dL (65-105); Phosphorus 3.7 mg/dL (2.5-4.5); Potassium 4.2 mmol/L (3.4-5.0); Sodium 156 mmol/L (137-145)
--- NOTE | 2020-04-14 08:48 | PC.NURSE ---
patient down to ct at 0848.
[2020-04-14 09:03] LABS: Partial Thromboplastin Time > 200.0 SECONDS (22.3-36.8)
[2020-04-14 09:11] LABS: Anion Gap 8 mmol/L (8-16); Blood Urea Nitrogen 87 mg/dL (7-17); Calcium 8.5 mg/dL (8.4-10.2); Carbon Dioxide 23 mmol/L (22-30); Chloride 125 mmol/L (98-107); Estimated CRCL calculation 12 ml/min; Estimated Glomerular Filt Rate 13; Glucose 259 mg/dL (65-105); Sodium 156 mmol/L (137-145)
--- NOTE | 2020-04-14 09:16 | PC.NURSE ---
patient back to floor from ct at 0915.
[2020-04-14] MEDS: CHOLECALCIFEROL 1,000 UNITS TABLET 5000 UNITS PO (09:39)
[2020-04-14] MEDS: CITALOPRAM HYDROBROMIDE 20 MG TABLET PO (09:41)
[2020-04-14] MEDS: DEXAMETHASONE SOD PHOS INJ 4 MG/ML VIAL 6 MG IV PUSH (09:41)
[2020-04-14] MEDS: polyethylene glycoL 3350 17 GM POWD.PACK PO (09:41)
[2020-04-14] MEDS: VITAMIN E 400 UNIT CAPSULE PO (09:41)
[2020-04-14] MEDS: MULTIVITAMINS THERAPEUTIC TAB (*BKC) 1 TABLET PO (09:41)
[2020-04-14] MEDS: levETIRAcetam 500MG/NACL 100ML 500 MG/100 ML BAG 400 MG IVPB ×2 (09:42→22:24)
[2020-04-14 09:44] LABS: Thyroid Stimulating Hormone Reflex 0.091 uIU/mL (0.465-4.68)
[2020-04-14 09:58] LABS: Hepatitis B Surface Antigen Negative (Negative)
[2020-04-14 10:03] LABS: HAV RESULT Negative (Negative); Hepatitis B Core IgM Result Negative (Negative)
[2020-04-14 10:14] LABS: Free T4 Free Thyroxine Reflex 1.55 ng/dL (0.78-2.19)
[2020-04-14 10:15] LABS: Hepatitis B Surface Anti Res Negative; Hepatitis C Virus Antibody Negative (Negative)
[2020-04-14 11:35] LABS: Total Triiodothyronine (T3) 0.82 NG/ML (0.97-1.69)
[2020-04-14 12:00] VITALS: BP 158/63; PULSE 76; RESP 20; TEMP 36.5; O2SAT 99
--- NOTE | 2020-04-14 13:05 | P.PNNP_ITS ---
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 * agree with D5 1/2NS as this should provide some free water as well volume resuscitation * urine electrolytes consistent with prerenal azotemia * renal ultrasound unremarkable * continue supportive therapy * follow repeat labs and UOP (2) Hypernatremia: Code(s): E87.0 - Hyperosmolality and hypernatremia Status: Acute Assessment and Plan: * indicative of a severe/significant free water deficit * follow trend of sodium with IVFs * may eventually need D5W IVFs -- however, she is getting some D5W from the carrier fluid from [facility] (3) Pneumonia due to COVID-19 virus: Code(s): U07.1 - COVID-19; J12.82 - Pneumonia due to coronavirus disease 2018 Status: Acute Assessment and Plan: * presumed etiology of hypoxia * started on decadron * no a candidate for remdesivir due to CHEVY/ARF * follow respiratory status (4) Altered mental status: Code(s): R41.82 - Altered mental status, unspecified Status: Acute Assessment and Plan: * despite history of dementia, baseline mentation reportedly better that current status * suspect worsened mentation due to hypernatremia, COVID-19 infection, and UTI * follow with ongoing therapy (5) DVT (deep venous thrombosis): Qualifiers: DVT location: lower extremity Affected thrombotic vein of extremity: femoral Chronicity: acute Laterality: left Qualified Code(s): I82.412 - Acute embolism and thrombosis of left femoral vein Code(s): I82.409 - Acute embolism and thrombosis of unspecified deep veins of unspecified lower extremity Status: Acute Assessment and Plan: * left femoral and popliteal DVT noted by dopplers * on heparin gtt (6) Urinary tract infection: Qualifiers: Hematuria presence: without hematuria Urinary tract infection type: site unspecified Qualified Code(s): N39.0 - Urinary tract infection, site not specified Code(s): N39.0 - Urinary tract infection, site not specified Status: Acute Assessment and Plan: * urinalysis highly suggestive * on antibiotics * follow-up on cultures Will continue to follow. Subjective Date/time seen: 04/14/20 13:05 Mental status has not changed all that much since admission; slow improvement in sodium level and kidney function with gentle IVF hydration; no other acute issues/events overnight to report. Exam Narrative: Exam Narrative: General: Elderly female in NAD Heart: normal S1 and S2; no rub Lungs: clear to auscultation Abdomen: soft, nontender, nondistended, positive bowel sounds Extremities: no cyanosis or clubbing; no edema Skin: warm and dry Objective Data Vital Signs Vital Signs: Vital Signs Temp Pulse Resp BP Pulse Ox 04/14/20 08:00 36.4 C 73 24 H 142/64 H 93 04/14/20 04:00 36.4 C 69 22 H 150/60 H 98 04/14/20 00:00 36.3 C L 77 22 H 154/70 H 97 04/13/20 20:00 36.4 C 81 24 H 135/66 95 04/13/20 17:00 36.8 C 81 16 123/57 L 96 Intake/Output Intake/Output: Intake & Output 04/11/20 04/12/20 04/13/20 04/14/20 23:59 23:59 23:59
--- NOTE | 2020-04-14 13:05 | PM.PNNEP ---
Progress Note: A&P Assessment and Plan (1) CHEVY (acute kidney injury): Code(s): N17.9 - Acute kidney failure, unspecified Status: Acute Assessment and Plan: suspect due in large part ot volume depletion/dehydration possibly worsened by diureitcs and NSAID therapy CHIROPRACTIC PRACTICE MANAGER agree with D5 1/2NS as this should provide some free water as well volume resuscitation urine electrolytes consistent with prerenal azotemia renal ultrasound unremarkable continue supportive therapy follow repeat labs and UOP (2) Hypernatremia: Code(s): E87.0 - Hyperosmolality and hypernatremia Status: Acute Assessment and Plan: indicative of a severe/significant free water deficit follow trend of sodium with IVFs may eventually need D5W IVFs -- however, she is getting some D5W from the carrier fluid from [facility] (3) Pneumonia due to COVID-19 virus: Code(s): U07.1 - COVID-19; J12.82 - Pneumonia due to coronavirus disease 2018 Status: Acute Assessment and Plan: presumed etiology of hypoxia started on decadron no a candidate for remdesivir due to CHEVY/ARF follow respiratory status (4) Altered mental status: Code(s): R41.82 - Altered mental status, unspecified Status: Acute Assessment and Plan: despite history of dementia, baseline mentation reportedly better that current status suspect worsened mentation due to hypernatremia, COVID-19 infection, and UTI follow with ongoing therapy (5) DVT (deep venous thrombosis): Qualifiers: DVT location: lower extremity Affected thrombotic vein of extremity: femoral Chronicity: acute Laterality: left Qualified Code(s): I82.412 - Acute embolism and thrombosis of left femoral vein Code(s): I82.409 - Acute embolism and thrombosis of unspecified deep veins of unspecified lower extremity Status: Acute Assessment and Plan: left femoral and popliteal DVT noted by dopplers on heparin gtt (6) Urinary tract infection: Qualifiers: Hematuria presence: without hematuria Urinary tract infection type: site unspecified Qualified Code(s): N39.0 - Urinary tract infection, site not specified Code(s): N39.0 - Urinary tract infection, site not specified Status: Acute Assessment and Plan: urinalysis highly suggestive on antibiotics follow-up on cultures Will continue to follow. Subjective Date/time seen: 04/14/20 13:05 Mental status has not changed all that much since admission; slow improvement in sodium level and kidney function with gentle IVF hydration; no other acute issues/events overnight to report. Exam Narrative: Exam Narrative: General: Elderly female in NAD Heart: normal S1 and S2; no rub Lungs: clear to auscultation Abdomen: soft, nontender, nondistended, positive bowel sounds Extremities: no cyanosis or clubbing; no edema Skin: warm and dry Objective Data Vital Signs Vital Signs: Vital Signs Temp Pulse Resp BP Pulse Ox 04/14/20 08:00 36.4 C 73 24 H 142/64 H 93 04/14/20 04:00 36.4 C 69 22 H 150/60 H 98 04/14/20 00:00 36.3 C L 77 22 H 154/70 H 97 04/13/20 20:00 36.4 C 81 24 H 135/66 95 04/13/20 17:00 36.8 C 81 16 123/57 L 96 Intake/Output Intake/Output: Intake & Output 04/11/20 04/12/20 04/13/20 04/14/20 23:59 23:59 23:59 23:59 Intake Total 1400 1125 Output Total 300 Balance 1400 825 Meds/Results Medications: Active Medications Generic Name Dose Route Start Last Admin Trade Name Freq PRN Reason Stop Dose Admin Citalopram Hydrobromide 20 mg 04/14/20 09:00 04/14/20 09:41 Citalopram Hydrobromide 20 Mg Tablet PO 20 mg DAILY JERI Administration Dexamethasone Sodium Phosphate 6 mg 04/13/20 13:15 04/14/20 09:41 Dexamethasone Sod Phos Inj 4 Mg/Ml Vial IV PUSH 04/22/20 09:01 6 mg DAILY JERI Administration Heparin Sodium (Porcine) 5,500 units 04/13/20 17:09 Hepar
--- NOTE | 2020-04-14 13:06 | PM.IMPN ---
Progress Note: A&P Assessment and Plan (1) Altered mental status: Qualifiers: Altered mental status type: unspecified Qualified Code(s): R41.82 - Altered mental status, unspecified Code(s): R41.82 - Altered mental status, unspecified Status: Acute Assessment and Plan: Patient with dementia presents with multiple medical issues detailed below. Suspect acute metabolic encephalopathy related to infection and/or electrolyte imbalances superimposed on her underlying dementia and debility may be contributing. CT brain 04/14 without acute intracranial abnormalities. (2) Pneumonia due to COVID-19 virus: Code(s): U07.1 - COVID-19; J12.82 - Pneumonia due to coronavirus disease 2018 Status: Acute Assessment and Plan: COVID positive 04/11/20. CXR shows evidence of bilateral pneumonia. Continue dexamethasone (day 2). Remdesivir is contraindicated at this time given her renal failure. Other supportive care can be added if she wakes enough to take oral medications or participate in incentive spirometry, etc. Will reassess each day when any of these therapies could be appropriately added. (3) Acute respiratory failure with hypoxia: Code(s): J96.01 - Acute respiratory failure with hypoxia Status: Acute Assessment and Plan: Tolerating 2L O2 nasal cannula. Wean supplemental oxygen as tolerated to keep O2 saturations > 90%. (4) DVT (deep venous thrombosis): Qualifiers: Affected thrombotic vein of extremity: femoral Chronicity: acute DVT location: lower extremity Laterality: left Qualified Code(s): I82.412 - Acute embolism and thrombosis of left femoral vein Code(s): I82.409 - Acute embolism and thrombosis of unspecified deep veins of unspecified lower extremity Status: Acute Assessment and Plan: Venous Doppler 04/13 demonstrates left femoral and popliteal DVT. She was started on heparin gtt. (5) Urinary tract infection: Qualifiers: Hematuria presence: without hematuria Urinary tract infection type: site unspecified Qualified Code(s): N39.0 - Urinary tract infection, site not specified Code(s): N39.0 - Urinary tract infection, site not specified Status: Acute Assessment and Plan: UA suggestive of UTI. Rocephin (day 2) with urine and blood cultures pending. (6) CHEVY (acute kidney injury): Code(s): N17.9 - Acute kidney failure, unspecified Status: Acute Assessment and Plan: Suspect this may be related to dehydration. Appear she was also naproxen at the correction, could have contributed. Appreciate nephrology recommendations. She remains on IV fluids with D5 half NS today. Renal ultrasound is unremarkable. Diuretics held. Monitor BMP daily. (7) Acute hypernatremia: Code(s): E87.0 - Hyperosmolality and hypernatremia Status: Acute Assessment and Plan: Suspect related to dehydration. Trend serum sodium with IV fluids mentioned above. Appreciate nephrology input. (8) Dementia: Qualifiers: Dementia behavioral disturbance: without behavioral disturbance Dementia type: unspecified type Qualified Code(s): F03.90 - Unspecified dementia without behavioral disturbance Code(s): F03.90 - Unspecified dementia without behavioral disturbance Status: Chronic Assessment and Plan: CT brain without acute intracranial abnormalities. Was able to take her home medications this morning. (9) Left shoulder pain: Qualifiers: Chronicity: unspecified Qualified Code(s): M25.512 - Pain in left shoulder Cod
[2020-04-14 15:58] LABS: Sodium 156 mmol/L (137-145)
[2020-04-14 16:00] VITALS: BP 140/61; PULSE 74; RESP 22; TEMP 37.1; O2SAT 97
[2020-04-14 17:03] LABS: Partial Thromboplastin Time > 200.0 SECONDS (22.3-36.8)
[2020-04-14] MEDS: HEPARIN SOD/D5W 100 UNITS/ML 25,000 UNITS/250 ML BAG 6 UNITS IV CONT (18:17)
[2020-04-14 20:00] VITALS: BP 154/74; PULSE 74; RESP 22; RESP 24; TEMP 36.4; O2SAT 94; O2SAT 97
[2020-04-14 20:36] LABS: Sodium 155 mmol/L (137-145)
[2020-04-14] MEDS: traZODone HCL 50 MG TABLET PO (22:24)
[2020-04-15] VITALS (7 sets, daily range): BP systolic 144–165; BP diastolic 59–71; PULSE 73–76; RESP 18–24; TEMP 36.4–37.4; O2SAT 94–97
[2020-04-15 00:56] LABS: Partial Thromboplastin Time 160.5 SECONDS (22.3-36.8)
[2020-04-15] MEDS: DEXTROSE 5%/0.45% SOD CHL 1,000 ML 100 ML IV CONT ×2 (03:56→15:43)
[2020-04-15 05:55] LABS: Basophils Percent Auto 0.2 % (0.2-1.2); Hematocrit 41.7 % (37.0-47.0); Hemoglobin 12.9 g/dL (12.0-15.0); Immature Granulocyte Absolute 0.16 K/mm3 (0.00-0.031); Lymphocytes Absolute Auto 1.22 K/mm3 (0.9-3.2); Lymphocytes Percent Auto 7.8 % (18.3-44.2); Mean Corpuscular HGB Conc 30.9 g/dl (32-36); Mean Corpuscular Hemoglobin 29.8 pg (26-34); Mean Corpuscular Volume 96.3 fl (80-100); Monocytes Absolute Auto 0.8 K/mm3 (0.1-0.6); Neutrophils Absolute Auto 13.6 K/mm3 (1.3-6.7); Nucleated Red Blood Cells Absolute Auto 0.1 K/mm3 (0.0-0.012); Nucleated Red Blood Cells Perc 0.6 % (0.0-0.2); Platelet Count Result 157 k/mm3 (150-375); Red Blood Count 4.33 M/mm3 (4.2-5.4); Red Cell Distribution Width 15.2 % (11.5-14.5); White Blood Count 15.7 K/mm3 (4.5-10.0)
[2020-04-15 06:12] LABS: Alanine Aminotransferase 45 U/L (4-35); Albumin Level 3.1 g/dL (3.5-5.1); Alkaline Phosphatase 108 U/L (38-126); Anion Gap 7 mmol/L (8-16); Aspartate Amino Transferase 98 U/L (14-36); Bilirubin,Total 0.5 mg/dL (0.2-1.3); Blood Urea Nitrogen 76 mg/dL (7-17); Calcium 8.6 mg/dL (8.4-10.2); Carbon Dioxide 22 mmol/L (22-30); Chloride 125 mmol/L (98-107); Estimated CRCL calculation 14 ml/min; Estimated Glomerular Filt Rate 16; Glucose 244 mg/dL (65-105); Magnesium 2.3 mg/dL (1.6-2.3); Sodium 154 mmol/L (137-145)
[2020-04-15] MEDS: DEXAMETHASONE SOD PHOS INJ 4 MG/ML VIAL 6 MG IV PUSH (08:09)
[2020-04-15] MEDS: polyethylene glycoL 3350 17 GM POWD.PACK PO (08:09)
[2020-04-15] MEDS: MULTIVITAMINS THERAPEUTIC TAB (*BKC) 1 TABLET PO (08:10)
[2020-04-15] MEDS: CHOLECALCIFEROL 1,000 UNITS TABLET 5000 UNITS PO (08:10)
[2020-04-15] MEDS: CITALOPRAM HYDROBROMIDE 20 MG TABLET PO (08:10)
[2020-04-15] MEDS: VITAMIN E 400 UNIT CAPSULE PO (08:10)
[2020-04-15 08:20] LABS: Partial Thromboplastin Time 75.7 SECONDS (22.3-36.8)
[2020-04-15] MEDS: levETIRAcetam 500MG/NACL 100ML 500 MG/100 ML BAG 400 MG IVPB ×2 (09:32→21:31)
--- NOTE | 2020-04-15 12:56 | PM.IMPN ---
Progress Note: A&P Assessment and Plan (1) Altered mental status: Qualifiers: Altered mental status type: unspecified Qualified Code(s): R41.82 - Altered mental status, unspecified Code(s): R41.82 - Altered mental status, unspecified Status: Acute Assessment and Plan: A bit improved today. Patient with dementia presents with multiple medical issues detailed below. Suspect acute metabolic encephalopathy related to infection and/or electrolyte imbalances superimposed on her underlying dementia and debility may be contributing. CT brain 04/14 without acute intracranial abnormalities. (2) Pneumonia due to COVID-19 virus: Code(s): U07.1 - COVID-19; J12.82 - Pneumonia due to coronavirus disease 2018 Status: Acute Assessment and Plan: COVID positive 04/11/20. CXR shows evidence of bilateral pneumonia. Continue dexamethasone (day 3). Remdesivir is contraindicated at this time given her renal failure. (3) Acute respiratory failure with hypoxia: Code(s): J96.01 - Acute respiratory failure with hypoxia Status: Acute Assessment and Plan: Tolerating 2L O2 nasal cannula. Wean supplemental oxygen as tolerated to keep O2 saturations > 90%. (4) DVT (deep venous thrombosis): Qualifiers: DVT location: lower extremity Affected thrombotic vein of extremity: femoral Chronicity: acute Laterality: left Qualified Code(s): I82.412 - Acute embolism and thrombosis of left femoral vein Code(s): I82.409 - Acute embolism and thrombosis of unspecified deep veins of unspecified lower extremity Status: Acute Assessment and Plan: Venous Doppler 04/13 demonstrates left femoral and popliteal DVT. She was started on heparin gtt. Anticipate transition to NOAC if her mental status improves enough to take oral medications reliably. Monitor for bleeding. (5) Urinary tract infection: Qualifiers: Hematuria presence: without hematuria Urinary tract infection type: site unspecified Qualified Code(s): N39.0 - Urinary tract infection, site not specified Code(s): N39.0 - Urinary tract infection, site not specified Status: Acute Assessment and Plan: Urine culture growing E coli. Continue rocephin (day 3). Blood cultures pending with no growth to date. (6) CHEVY (acute kidney injury): Code(s): N17.9 - Acute kidney failure, unspecified Status: Acute Assessment and Plan: Suspect this may be related to dehydration. Appear she was also naproxen at the correction, could have contributed. Appreciate nephrology recommendations. She remains on IV fluids with D5 half NS today. Renal ultrasound is unremarkable. Diuretics held. Monitor BMP daily. (7) Acute hypernatremia: Code(s): E87.0 - Hyperosmolality and hypernatremia Status: Acute Assessment and Plan: Improving slowly. Suspect related to dehydration. Trend serum sodium with IV fluids mentioned above. Appreciate nephrology input. (8) Dementia: Qualifiers: Dementia behavioral disturbance: without behavioral disturbance Dementia type: unspecified type Qualified Code(s): F03.90 - Unspecified dementia without behavioral disturbance Code(s): F03.90 - Unspecified dementia without behavioral disturbance Status: Chronic Assessment and Plan: CT brain without acute intracranial abnormalities. Continue home medications. (9) Left shoulder pain: Qualifiers: Chronicity: unspecified Qualified Code(s): M25.512 - Pain in left shoulder Code(s): M25.512 - Pain in left shoulder
--- NOTE | 2020-04-15 13:45 | PM.PNNEP ---
Progress Note: A&P Assessment and Plan (1) CHEVY (acute kidney injury): Code(s): N17.9 - Acute kidney failure, unspecified Status: Acute Assessment and Plan: suspect due in large part ot volume depletion/dehydration possibly worsened by diureitcs and NSAID therapy [employer] on D5 1/2NS as this should provide some free water as well volume resuscitation urine electrolytes consistent with prerenal azotemia renal ultrasound unremarkable continue supportive therapy follow repeat labs and UOP (2) Hypernatremia: Code(s): E87.0 - Hyperosmolality and hypernatremia Status: Acute Assessment and Plan: indicative of a severe/significant free water deficit follow trend of sodium with IVFs may eventually need D5W IVFs -- however, she is getting some D5W from the carrier fluid from heparin gtt encourage free water intake (as tolerated) now that mental status is better (3) Pneumonia due to COVID-19 virus: Code(s): U07.1 - COVID-19; J12.82 - Pneumonia due to coronavirus disease 2019 Status: Acute Assessment and Plan: presumed etiology of hypoxia started on decadron no a candidate for remdesivir due to CHEVY/ARF follow respiratory status (4) Altered mental status: Qualifiers: Altered mental status type: unspecified Qualified Code(s): R41.82 - Altered mental status, unspecified Code(s): R41.82 - Altered mental status, unspecified Status: Acute Assessment and Plan: despite history of dementia, baseline mentation reportedly better that current status suspect worsened mentation due to hypernatremia, COVID-19 infection, and UTI follow with ongoing therapy (5) DVT (deep venous thrombosis): Qualifiers: Affected thrombotic vein of extremity: femoral Chronicity: acute DVT location: lower extremity Laterality: left Qualified Code(s): I82.412 - Acute embolism and thrombosis of left femoral vein Code(s): I82.409 - Acute embolism and thrombosis of unspecified deep veins of unspecified lower extremity Status: Acute Assessment and Plan: left femoral and popliteal DVT noted by dopplers on heparin gtt (6) Urinary tract infection: Qualifiers: Hematuria presence: without hematuria Urinary tract infection type: site unspecified Qualified Code(s): N39.0 - Urinary tract infection, site not specified Code(s): N39.0 - Urinary tract infection, site not specified Status: Acute Assessment and Plan: urinalysis highly suggestive on antibiotics follow-up on cultures Will continue to follow. Subjective Date/time seen: 04/15/20 13:45 Mental status appears to be doing much better in comparison to yesterday; eating and drinking with assistance; no other acute issues or problems to report at this time. Exam Narrative: Exam Narrative: General: Elderly female in NAD Heart: normal S1 and S2; no rub Lungs: clear to auscultation Abdomen: soft, nontender, nondistended, positive bowel sounds Extremities: no cyanosis or clubbing; no edema Skin: warm and intact Objective Data Vital Signs Vital Signs: Vital Signs Temp Pulse Resp BP Pulse Ox 04/15/20 12:00 37.4 C 74 20 165/71 H 97 04/15/20 08:00 73 24 H 97 04/15/20 07:59 36.4 C 73 24 H 152/59 H 97 04/15/20 04:00 36.8 C 74 22 H 145/67 H 96 04/15/20 00:00 36.7 C 74 22 H 144/65 H 94 04/14/20 20:00 36.4 C L 74 22 H 154/74 H 94 04/14/20 16:00 37.1 C 74 22 H 140/61 97 Intake/Output Intake/Output: Intake & Output 04/12/20 04/13/20 04/14/20 04/15/20 23:59 23:59 23:59 23:59 Intake Total 1400 2625 2340 Output Total 800 600 Balance 1400 1825 1740 Meds/Results Medications: Active Medications Generic Name Dose Route Start Last Admin Trade Name Freq PRN Reason Stop Dose Admin Citalopram Hydrobromide 20 mg 04/14/20 09:00 04/15/20 08:10 Citalopram Hydrobromide 20 Mg Ta
--- NOTE | 2020-04-15 13:45 | P.PNNP_ITS ---
Progress Note: A&P Assessment and Plan (1) CHEVY (acute kidney injury): Code(s): N17.9 - Acute kidney failure, unspecified Status: Acute Assessment and Plan: * suspect due in large part ot volume depletion/dehydration * possibly worsened by diureitcs and NSAID therapy [employer] * on D5 1/2NS as this should provide some free water as well volume resuscitation * urine electrolytes consistent with prerenal azotemia * renal ultrasound unremarkable * continue supportive therapy * follow repeat labs and UOP (2) Hypernatremia: Code(s): E87.0 - Hyperosmolality and hypernatremia Status: Acute Assessment and Plan: * indicative of a severe/significant free water deficit * follow trend of sodium with IVFs * may eventually need D5W IVFs -- however, she is getting some D5W from the carrier fluid from heparin gtt * encourage free water intake (as tolerated) now that mental status is better (3) Pneumonia due to COVID-19 virus: Code(s): U07.1 - COVID-19; J12.82 - Pneumonia due to coronavirus disease 2019 Status: Acute Assessment and Plan: * presumed etiology of hypoxia * started on decadron * no a candidate for remdesivir due to CHEVY/ARF * follow respiratory status (4) Altered mental status: Qualifiers: Altered mental status type: unspecified Qualified Code(s): R41.82 - Altered mental status, unspecified Code(s): R41.82 - Altered mental status, unspecified Status: Acute Assessment and Plan: * despite history of dementia, baseline mentation reportedly better that current status * suspect worsened mentation due to hypernatremia, COVID-19 infection, and UTI * follow with ongoing therapy (5) DVT (deep venous thrombosis): Qualifiers: Affected thrombotic vein of extremity: femoral Chronicity: acute DVT location: lower extremity Laterality: left Qualified Code(s): I82.412 - Acute embolism and thrombosis of left femoral vein Code(s): I82.409 - Acute embolism and thrombosis of unspecified deep veins of unspecified lower extremity Status: Acute Assessment and Plan: * left femoral and popliteal DVT noted by dopplers * on heparin gtt (6) Urinary tract infection: Qualifiers: Hematuria presence: without hematuria Urinary tract infection type: site unspecified Qualified Code(s): N39.0 - Urinary tract infection, site not specified Code(s): N39.0 - Urinary tract infection, site not specified Status: Acute Assessment and Plan: * urinalysis highly suggestive * on antibiotics * follow-up on cultures Will continue to follow. Subjective Date/time seen: 04/15/20 13:45 Mental status appears to be doing much better in comparison to yesterday; eating and drinking with assistance; no other acute issues or problems to report at this time. Exam Narrative: Exam Narrative: General: Elderly female in NAD Heart: normal S1 and S2; no rub Lungs: clear to auscultation Abdomen: soft, nontender, nondistended, positive bowel sounds Extremities: no cyanosis or clubbing; no edema Skin: warm and intact Objective Data Vital Signs Vital Signs: Vital Signs Temp Pulse Resp BP Pulse Ox 04/15/20 12:00 37.4 C 74 20 165/71 H 97 04/15/20 08:00 73 24 H 97 04/15/20 07:59 36.4 C 73 24 H 152/59 H 97 04/15/20 04:00 36.8 C 74 22 H 145/67 H 96 04/15/20 00:00 36.7 C 74 22 H
[2020-04-15 15:25] LABS: Sodium 152 mmol/L (137-145)
[2020-04-15 16:47] LABS: Partial Thromboplastin Time 54.6 SECONDS (22.3-36.8)
[2020-04-15] MEDS: HEPARIN SOD/D5W 100 UNITS/ML 25,000 UNITS/250 ML BAG 7 UNITS IV CONT (17:01)
[2020-04-15] MEDS: HEPARIN SODIUM 5,000 UNITS/ML VIAL 5500 UNITS IV PUSH (17:03)
[2020-04-15] MEDS: traZODone HCL 50 MG TABLET PO (21:31)
[2020-04-15 23:46] LABS: Partial Thromboplastin Time 122.8 SECONDS (22.3-36.8)
[2020-04-16] VITALS (8 sets, daily range): BP systolic 149–173; BP diastolic 57–72; PULSE 64–78; RESP 16–20; TEMP 36.1–36.9; O2SAT 94–99
[2020-04-16] MEDS: DEXTROSE 5%/0.45% SOD CHL 1,000 ML 100 ML IV CONT (05:57)
[2020-04-16] MEDS: VITAMIN E 400 UNIT CAPSULE PO (08:43)
[2020-04-16] MEDS: CHOLECALCIFEROL 1,000 UNITS TABLET 5000 UNITS PO (08:43)
[2020-04-16] MEDS: polyethylene glycoL 3350 17 GM POWD.PACK PO (08:43)
[2020-04-16] MEDS: DEXAMETHASONE SOD PHOS INJ 4 MG/ML VIAL 6 MG IV PUSH (08:44)
[2020-04-16] MEDS: CITALOPRAM HYDROBROMIDE 20 MG TABLET PO (08:44)
[2020-04-16] MEDS: MULTIVITAMINS THERAPEUTIC TAB (*BKC) 1 TABLET PO (08:44)
--- NOTE | 2020-04-16 08:48 | PM.PNNEP ---
Progress Note: A&P Assessment and Plan (1) CHEVY (acute kidney injury): Code(s): N17.9 - Acute kidney failure, unspecified Status: Acute Assessment and Plan: suspect due in large part ot volume depletion/dehydration urine electrolytes consistent with prerenal azotemia renal ultrasound unremarkable creatinine is better. follow repeat labs and UOP (2) Hypernatremia: Code(s): E87.0 - Hyperosmolality and hypernatremia Status: Acute Assessment and Plan: indicative of a severe/significant free water deficit sodium still high and creatinine is much better and bp okay, so witll change to d5w. (3) Pneumonia due to COVID-19 virus: Code(s): U07.1 - COVID-19; J12.82 - Pneumonia due to coronavirus disease 2019 Status: Acute Assessment and Plan: presumed etiology of hypoxia started on decadron no a candidate for remdesivir due to CHEVY/ARF follow respiratory status (4) Altered mental status: Qualifiers: Altered mental status type: unspecified Qualified Code(s): R41.82 - Altered mental status, unspecified Code(s): R41.82 - Altered mental status, unspecified Status: Acute Assessment and Plan: despite history of dementia, baseline mentation reportedly better that current status suspect worsened mentation due to hypernatremia, COVID-19 infection, and UTI follow with ongoing therapy (5) DVT (deep venous thrombosis): Qualifiers: DVT location: lower extremity Affected thrombotic vein of extremity: femoral Chronicity: acute Laterality: left Qualified Code(s): I82.412 - Acute embolism and thrombosis of left femoral vein Code(s): I82.409 - Acute embolism and thrombosis of unspecified deep veins of unspecified lower extremity Status: Acute Assessment and Plan: left femoral and popliteal DVT noted by dopplers on heparin gtt (6) Urinary tract infection: Qualifiers: Hematuria presence: without hematuria Urinary tract infection type: site unspecified Qualified Code(s): N39.0 - Urinary tract infection, site not specified Code(s): N39.0 - Urinary tract infection, site not specified Status: Acute Assessment and Plan: urinalysis highly suggestive on ceftriaxone. Will continue to follow. Subjective Date/time seen: 04/16/20 15:48 Interval history: alert. feels okay no cp or sob. getting ivfs still. Exam Narrative: Exam Narrative: General: Elderly female in NAD Heart: normal S1 and S2; no rub Lungs: clear to auscultation Abdomen: soft, nontender, nondistended, positive bowel sounds Extremities: no edema Skin:no rash Objective Data Vital Signs Vital Signs: Vital Signs - 24 hr 04/15/20 16:00 04/15/20 20:00 04/16/20 00:00 Temperature 37.0 C 36.6 C 36.3 C L Pulse Rate 76 73 73 Respiratory Rate 24 H 18 16 Blood Pressure 161/66 H 158/67 H 155/63 H Pulse Oximetry 95 95 99 04/16/20 04:00 04/16/20 08:00 04/16/20 10:29 Temperature 36.4 C 36.9 C Pulse Rate 78 70 Respiratory Rate 20 18 Blood Pressure 153/65 H 149/72 H Pulse Oximetry 99 97 96 04/16/20 12:00 Temperature 36.8 C Pulse Rate 70 Respiratory Rate 18 Blood Pressure 158/62 H Pulse Oximetry 98 Intake/Output Intake/Output: Intake & Output 04/13/20 04/14/20 04/15/20 04/16/20 23:59 23:59 23:59 23:59 Intake Total 1400 2625 2940 1120 Output Total 800 1100 400 Balance 1400 1825 1840 720 Meds/Results Medications: Active Medications Generic Name Dose Route Start Last Admin Trade Name Freq PRN Reason Stop Dose Admin Citalopram Hydrobromide 20 mg 04/14/20 09:00 04/16/20 08:44 Citalopram Hydrobromide 20 Mg Tablet PO 20 mg DAILY JERI Administration Dexamethasone Sodium Phosphate 6 mg 04/13/20 13:15 04/16/20 08:44 Dexamethasone Sod Phos Inj 4 Mg/Ml Vial IV PUSH 04/22/20 09:01 6 mg DAILY JERI Administration Dextrose 12.5 gm 04/16/20 10:
--- NOTE | 2020-04-16 08:48 | P.PNNP_ITS ---
Progress Note: A&P Assessment and Plan (1) CHEVY (acute kidney injury): Code(s): N17.9 - Acute kidney failure, unspecified Status: Acute Assessment and Plan: * suspect due in large part ot volume depletion/dehydration * urine electrolytes consistent with prerenal azotemia * renal ultrasound unremarkable * creatinine is better. * follow repeat labs and UOP (2) Hypernatremia: Code(s): E87.0 - Hyperosmolality and hypernatremia Status: Acute Assessment and Plan: * indicative of a severe/significant free water deficit * sodium still high and creatinine is much better and bp okay, so witll change to d5w. (3) Pneumonia due to COVID-19 virus: Code(s): U07.1 - COVID-19; J12.82 - Pneumonia due to coronavirus disease 2018 Status: Acute Assessment and Plan: * presumed etiology of hypoxia * started on decadron * no a candidate for remdesivir due to CHEVY/ARF * follow respiratory status (4) Altered mental status: Qualifiers: Altered mental status type: unspecified Qualified Code(s): R41.82 - Altered mental status, unspecified Code(s): R41.82 - Altered mental status, unspecified Status: Acute Assessment and Plan: * despite history of dementia, baseline mentation reportedly better that current status * suspect worsened mentation due to hypernatremia, COVID-19 infection, and UTI * follow with ongoing therapy (5) DVT (deep venous thrombosis): Qualifiers: DVT location: lower extremity Affected thrombotic vein of extremity: femoral Chronicity: acute Laterality: left Qualified Code(s): I82.412 - Acute embolism and thrombosis of left femoral vein Code(s): I82.409 - Acute embolism and thrombosis of unspecified deep veins of unspecified lower extremity Status: Acute Assessment and Plan: * left femoral and popliteal DVT noted by dopplers * on heparin gtt (6) Urinary tract infection: Qualifiers: Hematuria presence: without hematuria Urinary tract infection type: site unspecified Qualified Code(s): N39.0 - Urinary tract infection, site not specified Code(s): N39.0 - Urinary tract infection, site not specified Status: Acute Assessment and Plan: * urinalysis highly suggestive * on ceftriaxone. Will continue to follow. Subjective Date/time seen: 04/16/20 15:48 Interval history: alert. feels okay no cp or sob. getting ivfs still. Exam Narrative: Exam Narrative: General: Elderly female in NAD Heart: normal S1 and S2; no rub Lungs: clear to auscultation Abdomen: soft, nontender, nondistended, positive bowel sounds Extremities: no edema Skin:no rash Objective Data Vital Signs Vital Signs: Vital Signs - 24 hr 04/15/20 16:00 04/15/20 20:00 04/16/20 00:00 Temperature 37.0 C 36.6 C 36.3 C L Pulse Rate 76 73 73 Respiratory Rate 24 H 18 16 Blood Pressure 161/66 H 158/67 H 155/63 H Pulse Oximetry 95 95 99 04/16/20 04:00 04/16/20 08:00 04/16/20 10:29 Temperature 36.4 C 36.9 C Pulse Rate 78 70 Respiratory Rate 20 18 Blood Pressure 153/65 H 149/72 H Pulse Oximetry 99 97 96 04/16/20 12:00 Temperature 36.8 C Pulse Rate 70 Respiratory Rate 18 Blood Pressure 158/62 H Pulse Oximetry 98
[2020-04-16] MEDS: levETIRAcetam 500MG/NACL 100ML 500 MG/100 ML BAG 400 MG IVPB ×2 (08:52→19:34)
[2020-04-16 09:06] LABS: Albumin Level 2.9 g/dL (3.5-5.1); Anion Gap 8 mmol/L (8-16); Blood Urea Nitrogen 61 mg/dL (7-17); Calcium 8.8 mg/dL (8.4-10.2); Carbon Dioxide 18 mmol/L (22-30); Chloride 125 mmol/L (98-107); Estimated CRCL calculation 22 ml/min; Estimated Glomerular Filt Rate 27; Glucose 246 mg/dL (65-105); Phosphorus 2.4 mg/dL (2.5-4.5); Potassium 3.8 mmol/L (3.4-5.0); Sodium 151 mmol/L (137-145)
--- NOTE | 2020-04-16 09:50 | PCNFU ---
Nutrition Follow-Up Complete: Inadequate oral intake related to dementia as evidenced by poor PO intake reported. Goal: Patient to meet estimated nutritional needs. Progressing towards goal. We will continue current goal. Pt current nutrition is Renal Dialysis. Last recorded weight is 81 kg, no new weight to report. Bowel Motility:No BM reported Labs Reviewed:NA 151,GFR 27,BUN 61, Glu 246, Alb 2.9 Meds Noted:MVI,Vit D, Vit E, Keppra, Miralax, Rocephin,Decadron Additional Notes: Nutrition follow up today. Spoke with nursing today, due to COVID precautions. Patient oral intake is improving, eating 25-50% of meals. Diet supplements: Ensure Compact BID providing an additional 220 kcals and 9 gms protein. Agree with diet orders. Monitoring: patients labs, medications, weight, and oral intake every 5 days.
[2020-04-16 11:06] LABS: Hematocrit 38.2 % (37.0-47.0); Hemoglobin 12.3 g/dL (12.0-15.0); Mean Corpuscular HGB Conc 32.2 g/dl (32-36); Mean Corpuscular Hemoglobin 30.4 pg (26-34); Mean Corpuscular Volume 94.3 fl (80-100); Mean Platelet Volume 12.7 fl (7.4-10.4); Platelet Count Result 165 k/mm3 (150-375); Red Blood Count 4.05 M/mm3 (4.2-5.4); Red Cell Distribution Width 15.1 % (11.5-14.5); White Blood Count 12.3 K/mm3 (4.5-10.0)
[2020-04-16 11:33] LABS: Lymphocytes Absolute Manual 0.36 K/mm3 (1.1-4.5); Monocytes Absolute Manual 0.49 K/mm3 (0.1-0.90); Monocytes Percent Manual 4 % (3-9); Neutrophils Percent Manual 93 % (46-73); Nucleated Red Blood Cells 3 %; Platelet Estimate Decreased (Adequate); Total Cells Counted 100
[2020-04-16 11:34] LABS: Crenated RBC 1+ (NORMAL); Smudge Cells PRESENT
[2020-04-16 11:35] LABS: Macrocytosis 1+ (NORMAL); Ovalocytes 1+ (NORMAL)
[2020-04-16 11:37] LABS: Burr Cells 1+ (NORMAL)
[2020-04-16 11:46] LABS: Anti Glomerular Basement Memb <1.0 AI (<1.0)
[2020-04-16 12:19] LABS: Glucose Point of Care 245 (65-105)
[2020-04-16] MEDS: INSULIN ASPART (*BKC) 100 UNITS/ML SUB-Q ×2 (12:36→18:05)
[2020-04-16 12:55] LABS: Levetiracetam Keppra 23.3 mcg/mL (12.0-46.0)
[2020-04-16 13:19] LABS: Complement Total CH50 >60 U/mL (31-60)
[2020-04-16 13:21] LABS: Partial Thromboplastin Time 80.3 SECONDS (22.3-36.8)
--- NOTE | 2020-04-16 15:34 | PCSTNOTE ---
Please refer to the Bedside Swallow Evaluation in the EMR. Please note, silent aspiration cannot be ruled out at bedside.
[2020-04-16 17:43] LABS: Glucose Point of Care 285 (65-105)
[2020-04-16] MEDS: DEXTROSE 5% 1,000 ML 1,000 ML 75 ML IV CONT (18:05)
[2020-04-16] MEDS: traZODone HCL 50 MG TABLET PO (19:34)
[2020-04-16 19:39] LABS: Partial Thromboplastin Time 78.5 SECONDS (22.3-36.8)
--- NOTE | 2020-04-16 20:39 | PM.IMPN ---
Progress Note: A&P Assessment and Plan (1) Altered mental status: Qualifiers: Altered mental status type: unspecified Qualified Code(s): R41.82 - Altered mental status, unspecified Code(s): R41.82 - Altered mental status, unspecified Status: Acute Assessment and Plan: Improving. Patient with dementia presents with multiple medical issues detailed below. Suspect acute metabolic encephalopathy related to infection and/or electrolyte imbalances superimposed on her underlying dementia and debility may be contributing. CT brain 04/14 without acute intracranial abnormalities. 04/14 did not wake to sternal rub but resting comfortably; 04/15 awake and speaking with me some; 04/16 able to carry a conversation albeit slowly and follows commands. (2) Pneumonia due to COVID-19 virus: Code(s): U07.1 - COVID-19; J12.82 - Pneumonia due to coronavirus disease 2018 Status: Acute Assessment and Plan: COVID positive 04/11/20. CXR shows evidence of bilateral pneumonia. Continue dexamethasone (day 4). Remdesivir is contraindicated at this time given her renal failure. (3) Acute respiratory failure with hypoxia: Code(s): J96.01 - Acute respiratory failure with hypoxia Status: Acute Assessment and Plan: Improved, tolerating room air today. Wean supplemental oxygen as tolerated to keep O2 saturations > 90%. (4) DVT (deep venous thrombosis): Qualifiers: DVT location: lower extremity Affected thrombotic vein of extremity: femoral Chronicity: acute Laterality: left Qualified Code(s): I82.412 - Acute embolism and thrombosis of left femoral vein Code(s): I82.409 - Acute embolism and thrombosis of unspecified deep veins of unspecified lower extremity Status: Acute Assessment and Plan: Venous Doppler 04/13 demonstrates left femoral and popliteal DVT. She was started on heparin gtt on arrival. Stop heparin drip this evening and start oral Eliquis 10mg BID x 7 days followed by 5mg BID thereafter. (5) Urinary tract infection: Qualifiers: Hematuria presence: without hematuria Urinary tract infection type: site unspecified Qualified Code(s): N39.0 - Urinary tract infection, site not specified Code(s): N39.0 - Urinary tract infection, site not specified Status: Acute Assessment and Plan: Urine culture growing E coli. Continue rocephin (day 4). Blood cultures pending with no growth to date. (6) CHEVY (acute kidney injury): Code(s): N17.9 - Acute kidney failure, unspecified Status: Acute Assessment and Plan: Improving. Cr down to 1.8 today from 4.2 on arrival. Suspect this may be related to dehydration. Appears she was also naproxen at the assisted, could have contributed. Appreciate nephrology recommendations. She remains on IV fluids with D5 half NS today. Renal ultrasound is unremarkable. Diuretics held. Monitor renal function daily. (7) Acute hypernatremia: Code(s): E87.0 - Hyperosmolality and hypernatremia Status: Acute Assessment and Plan: Improving slowly. Suspect related to dehydration. Trend serum sodium with IV fluids mentioned above. Appreciate nephrology input. (8) Dementia: Qualifiers: Dementia behavioral disturbance: without behavioral disturbance Dementia type: unspecified type Qualified Code(s): F03.90 - Unspecified dementia without behavioral disturbance Code(s): F03.90 - Unspecified dementia without behavioral disturbance Status: Chronic Assessment and Plan: CT brain without acute intracranial abnormalities. Continue home medications.
[2020-04-16 21:23] LABS: Glucose Point of Care 213 (65-105)
[2020-04-16 21:29] LABS: Anti Streptolysin O Screen 76 IU/mL (<200)
[2020-04-16] MEDS: APIXABAN 5 MG TABLET 10 MG PO (23:03)
[2020-04-17 04:00] VITALS: BP 151/80; PULSE 67; RESP 18; TEMP 36.2; O2SAT 93
[2020-04-17 06:07] LABS: Basophils Percent Auto 0.2 % (0.2-1.2); Hemoglobin 12.1 g/dL (12.0-15.0); Immature Granulocyte Absolute 0.36 K/mm3 (0.00-0.031); Immature Granulocyte Percent A 2.9 % (0-0.5); Lymphocytes Absolute Auto 0.92 K/mm3 (0.9-3.2); Lymphocytes Percent Auto 7.4 % (18.3-44.2); Mean Corpuscular HGB Conc 33.6 g/dl (32-36); Mean Corpuscular Hemoglobin 30.6 pg (26-34); Mean Corpuscular Volume 90.9 fl (80-100); Mean Platelet Volume 12.2 fl (7.4-10.4); Monocytes Absolute Auto 0.8 K/mm3 (0.1-0.6); Monocytes Percent Auto 6.7 % (2.6-8.5); Neutrophils Absolute Auto 10.2 K/mm3 (1.3-6.7); Neutrophils Percent Auto 82.8 % (45.5-73.1); Nucleated Red Blood Cells Absolute Auto 0.1 K/mm3 (0.0-0.012); Nucleated Red Blood Cells Perc 0.6 % (0.0-0.2); Platelet Count Result 173 k/mm3 (150-375); Red Blood Count 3.96 M/mm3 (4.2-5.4); Red Cell Distribution Width 14.9 % (11.5-14.5); White Blood Count 12.4 K/mm3 (4.5-10.0)
[2020-04-17 06:12] LABS: Hemoglobin A1C 5.8 % (<5.7)
[2020-04-17 06:18] LABS: Albumin Level 2.9 g/dL (3.5-5.1); Anion Gap 3 mmol/L (8-16); Blood Urea Nitrogen 52 mg/dL (7-17); Calcium 9.4 mg/dL (8.4-10.2); Carbon Dioxide 23 mmol/L (22-30); Chloride 127 mmol/L (98-107); Estimated CRCL calculation 28 ml/min; Estimated Glomerular Filt Rate 36; Glucose 127 mg/dL (65-105); Phosphorus 2.4 mg/dL (2.5-4.5); Potassium 4.3 mmol/L (3.4-5.0); Sodium 153 mmol/L (137-145)
[2020-04-17 08:00] VITALS: BP 180/68; PULSE 68; RESP 18; TEMP 37.6; O2SAT 95
[2020-04-17] MEDS: VITAMIN E 400 UNIT CAPSULE PO (08:02)
[2020-04-17] MEDS: MULTIVITAMINS THERAPEUTIC TAB (*BKC) 1 TABLET PO (08:02)
[2020-04-17] MEDS: CHOLECALCIFEROL 1,000 UNITS TABLET 5000 UNITS PO (08:02)
[2020-04-17] MEDS: CITALOPRAM HYDROBROMIDE 20 MG TABLET PO (08:02)
[2020-04-17] MEDS: APIXABAN 5 MG TABLET 10 MG PO ×2 (08:02→21:58)
[2020-04-17] MEDS: POTASSIUM PHOS/SODIUM PHOS 250 MG TABLET PO (08:03)
[2020-04-17] MEDS: polyethylene glycoL 3350 17 GM POWD.PACK PO (08:03)
[2020-04-17] MEDS: levETIRAcetam 500 MG TABLET PO ×2 (08:03→21:57)
[2020-04-17] MEDS: DEXAMETHASONE SOD PHOS INJ 4 MG/ML VIAL 6 MG IV PUSH (08:03)
[2020-04-17 08:08] LABS: Glucose Point of Care 110 (65-105)
[2020-04-17] MEDS: DEXTROSE 5% 1,000 ML 1,000 ML 75 ML IV CONT ×2 (11:44→23:50)
[2020-04-17] MEDS: INSULIN ASPART (*BKC) 100 UNITS/ML SUB-Q ×2 (11:48→16:32)
[2020-04-17 12:00] VITALS: BP 156/73; PULSE 65; RESP 24; TEMP 36.4; O2SAT 94
[2020-04-17 12:04] LABS: Glucose Point of Care 214 (65-105)
--- NOTE | 2020-04-17 15:20 | PM.IMPN ---
Progress Note: A&P Assessment and Plan (1) Altered mental status: Qualifiers: Altered mental status type: unspecified Qualified Code(s): R41.82 - Altered mental status, unspecified Code(s): R41.82 - Altered mental status, unspecified Status: Acute Assessment and Plan: Alert and oriented to herself only, unknown baseline but reports say that she has dementia -her hypernatremia, COVID-19, and UTI is probably worsening her mental status -CT brain 04/14 without acute intracranial abnormalities. -04/14 did not wake to sternal rub but resting comfortably; 04/15 awake and speaking with me some; 04/16 and 04/17 able to carry a conversation albeit slowly (2) Pneumonia due to COVID-19 virus: Code(s): U07.1 - COVID-19; J12.82 - Pneumonia due to coronavirus disease 2019 Status: Acute Assessment and Plan: COVID positive 04/11/20. CXR shows evidence of bilateral pneumonia. -Continue dexamethasone (day 5). Remdesivir is contraindicated at this time given her renal failure. -patient on room air at 94% (3) Acute respiratory failure with hypoxia: Code(s): J96.01 - Acute respiratory failure with hypoxia Status: Acute Assessment and Plan: Resolved (4) DVT (deep venous thrombosis): Qualifiers: DVT location: lower extremity Affected thrombotic vein of extremity: femoral Chronicity: acute Laterality: left Qualified Code(s): I82.412 - Acute embolism and thrombosis of left femoral vein Code(s): I82.409 - Acute embolism and thrombosis of unspecified deep veins of unspecified lower extremity Status: Acute Assessment and Plan: Venous Doppler 04/13 demonstrates left femoral and popliteal DVT. She was started on heparin gtt on arrival. -started on Eliquis 10mg BID 04/16/20 (5) Urinary tract infection: Qualifiers: Hematuria presence: without hematuria Urinary tract infection type: site unspecified Qualified Code(s): N39.0 - Urinary tract infection, site not specified Code(s): N39.0 - Urinary tract infection, site not specified Status: Acute Assessment and Plan: Urine culture growing E coli. -Continue rocephin (day 5). -Blood cultures pending with no growth to date. (6) CHEVY (acute kidney injury): Code(s): N17.9 - Acute kidney failure, unspecified Status: Acute Assessment and Plan: Improving. Cr down to 1.4 today from 4.2 on arrival. -Suspect this may be related to dehydration. Appears she was also naproxen at the [facility], could have contributed. -Appreciate nephrology recommendations. - Renal ultrasound is unremarkable. -Diuretics held. Monitor renal function daily -consider removing the [place] soon (7) Acute hypernatremia: Code(s): E87.0 - Hyperosmolality and hypernatremia Status: Acute Assessment and Plan: Wax and wanes and will definitely be worse with thickened liquids -last sodium 153 -on dextrose IV fluids -hopefully speech therapy can transition her to normal diet so she eats and drinks more (8) Dementia: Qualifiers: Dementia behavioral disturbance: without behavioral disturbance Dementia type: unspecified type Qualified Code(s): F03.90 - Unspecified dementia without behavioral disturbance Code(s): F03.90 - Unspecified dementia without behavioral disturbance Status: Chronic Assessment and Plan: CT brain without acute intracranial abnormalities. Continue home medications. (9) Left shoulder pain: Qualifiers: Chronicity: unspecified Qualified Code(s): M25.512 - Pain in left shoulder Code(s): M25.512 - Pain in left shoulder Status: Acute Assessment and Plan: -Appears to have left shoulder pain with any type of movement. 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 (10) Depression with anxiety: Cod
--- NOTE | 2020-04-17 15:29 | P.PNNP_ITS ---
Progress Note: A&P Assessment and Plan (1) CHEVY (acute kidney injury): Code(s): N17.9 - Acute kidney failure, unspecified Status: Acute Assessment and Plan: * suspect due in large part ot volume depletion/dehydration * urine electrolytes consistent with prerenal azotemia * renal ultrasound unremarkable * creatinine is better. down to 1.4 (2) Hypernatremia: Code(s): E87.0 - Hyperosmolality and hypernatremia Status: Acute Assessment and Plan: * indicative of a severe/significant free water deficit * sodium still high so inc d5w (3) Pneumonia due to COVID-19 virus: Code(s): U07.1 - COVID-19; J12.82 - Pneumonia due to coronavirus disease 2018 Status: Acute Assessment and Plan: * presumed etiology of hypoxia * started on decadron * no a candidate for remdesivir due to CHEVY/ARF * follow respiratory status * on isolation (4) Altered mental status: Qualifiers: Altered mental status type: unspecified Qualified Code(s): R41.82 - Altered mental status, unspecified Code(s): R41.82 - Altered mental status, unspecified Status: Acute Assessment and Plan: * despite history of dementia, baseline mentation reportedly better that current status * suspect worsened mentation due to hypernatremia, COVID-19 infection, and UTI * follow with ongoing therapy (5) DVT (deep venous thrombosis): Qualifiers: DVT location: lower extremity Affected thrombotic vein of extremity: femoral Chronicity: acute Laterality: left Qualified Code(s): I82.412 - Acute embolism and thrombosis of left femoral vein Code(s): I82.409 - Acute embolism and thrombosis of unspecified deep veins of unspecified lower extremity Status: Acute Assessment and Plan: * left femoral and popliteal DVT noted by dopplers * on heparin gtt (6) Urinary tract infection: Qualifiers: Hematuria presence: without hematuria Urinary tract infection type: site unspecified Qualified Code(s): N39.0 - Urinary tract infection, site not specified Code(s): N39.0 - Urinary tract infection, site not specified Status: Acute Assessment and Plan: * urinalysis highly suggestive * on ceftriaxone. Subjective Date/time seen: 04/17/20 15:29 Interval history: alert. feels okay seems a bit more spontaneous. no swelling or sob. Exam Narrative: Exam Narrative: General: Elderly female in NAD Heart: normal S1 and S2; no rub Lungs: clear to auscultation Abdomen: soft, nontender, nondistended, positive bowel sounds Extremities: no edema Skin:no rash Objective Data Vital Signs Vital Signs: Vital Signs - 24 hr 04/16/20 16:00 04/16/20 20:00 04/16/20 23:47 Temperature 36.9 C 36.3 C L 36.1 C L Pulse Rate 70 67 64 Respiratory Rate 20 18 16 Blood Pressure 163/66 H 170/57 H 173/72 H Pulse Oximetry 95 94 95 04/17/20 04:00 04/17/20 08:00 04/17/20 12:00 Temperature 36.2 C L 37.6 C 36.4 C Pulse Rate 67 68 65 Respiratory Rate 18 18 24 H Blood Pressure 151/80 H 180/68 H 156/73 H Pulse Oximetry 93 95 94 Intake/Output Intake/Output: Intake & Output 04/14/20 04/15/20 04/16/20 04/17/20 23:59 23:59 23:59 23:59 Intake Total 2625 2940 1800 1650 Output Total 800 1100 950
--- NOTE | 2020-04-17 15:29 | PM.PNNEP ---
Progress Note: A&P Assessment and Plan (1) CHEVY (acute kidney injury): Code(s): N17.9 - Acute kidney failure, unspecified Status: Acute Assessment and Plan: suspect due in large part ot volume depletion/dehydration urine electrolytes consistent with prerenal azotemia renal ultrasound unremarkable creatinine is better. down to 1.4 (2) Hypernatremia: Code(s): E87.0 - Hyperosmolality and hypernatremia Status: Acute Assessment and Plan: indicative of a severe/significant free water deficit sodium still high so inc d5w (3) Pneumonia due to COVID-19 virus: Code(s): U07.1 - COVID-19; J12.82 - Pneumonia due to coronavirus disease 2019 Status: Acute Assessment and Plan: presumed etiology of hypoxia started on decadron no a candidate for remdesivir due to CHEVY/ARF follow respiratory status on isolation (4) Altered mental status: Qualifiers: Altered mental status type: unspecified Qualified Code(s): R41.82 - Altered mental status, unspecified Code(s): R41.82 - Altered mental status, unspecified Status: Acute Assessment and Plan: despite history of dementia, baseline mentation reportedly better that current status suspect worsened mentation due to hypernatremia, COVID-19 infection, and UTI follow with ongoing therapy (5) DVT (deep venous thrombosis): Qualifiers: DVT location: lower extremity Affected thrombotic vein of extremity: femoral Chronicity: acute Laterality: left Qualified Code(s): I82.412 - Acute embolism and thrombosis of left femoral vein Code(s): I82.409 - Acute embolism and thrombosis of unspecified deep veins of unspecified lower extremity Status: Acute Assessment and Plan: left femoral and popliteal DVT noted by dopplers on heparin gtt (6) Urinary tract infection: Qualifiers: Hematuria presence: without hematuria Urinary tract infection type: site unspecified Qualified Code(s): N39.0 - Urinary tract infection, site not specified Code(s): N39.0 - Urinary tract infection, site not specified Status: Acute Assessment and Plan: urinalysis highly suggestive on ceftriaxone. Subjective Date/time seen: 04/17/20 15:29 Interval history: alert. feels okay seems a bit more spontaneous. no swelling or sob. Exam Narrative: Exam Narrative: General: Elderly female in NAD Heart: normal S1 and S2; no rub Lungs: clear to auscultation Abdomen: soft, nontender, nondistended, positive bowel sounds Extremities: no edema Skin:no rash Objective Data Vital Signs Vital Signs: Vital Signs - 24 hr 04/16/20 16:00 04/16/20 20:00 04/16/20 23:47 Temperature 36.9 C 36.3 C L 36.1 C L Pulse Rate 70 67 64 Respiratory Rate 20 18 16 Blood Pressure 163/66 H 170/57 H 173/72 H Pulse Oximetry 95 94 95 04/17/20 04:00 04/17/20 08:00 04/17/20 12:00 Temperature 36.2 C L 37.6 C 36.4 C Pulse Rate 67 68 65 Respiratory Rate 18 18 24 H Blood Pressure 151/80 H 180/68 H 156/73 H Pulse Oximetry 93 95 94 Intake/Output Intake/Output: Intake & Output 04/14/20 04/15/20 04/16/20 04/17/20 23:59 23:59 23:59 23:59 Intake Total 2625 2940 1800 1650 Output Total 800 1100 950 450 Balance 1825 0529 323 7179 Meds/Results Medications: Active Medications Generic Name Dose Route Start Last Admin Trade Name Freq PRN Reason Stop Dose Admin Apixaban 5 mg 04/23/20 21:00 Apixaban 5 Mg Tablet PO Q12HR [facility] Apixaban 10 mg 04/16/20 21:00 04/17/20 08:02 Apixaban 5 Mg Tablet PO 04/23/20 09:01 10 mg Q12HR JERI Administration Citalopram Hydrobromide 20 mg 04/14/20 09:00 04/17/20 08:02 Citalopram Hydrobromide 20 Mg Tablet PO 20 mg DAILY JERI Administration Dexamethasone Sodium Phosphate 6 mg 04/13/20 13:15 04/17/20 08:03 Dexamethasone Sod Phos Inj 4 Mg/Ml Vial IV PUSH 04/22/20 09:01 6 mg DAILY JERI Adm
[2020-04-17 16:00] VITALS: BP 185/68; PULSE 60; RESP 22; TEMP 36.2; O2SAT 97
[2020-04-17] MEDS: hydrALAZINE HCL 20 MG/ML VIAL 10 MG IV PUSH (16:33)
[2020-04-17 17:53] LABS: Glucose Point of Care 255 (65-105)
[2020-04-17 20:00] VITALS: BP 180/71; PULSE 63; RESP 22; TEMP 36.4; O2SAT 93
[2020-04-17] MEDS: traZODone HCL 50 MG TABLET PO (21:58)
[2020-04-18] VITALS: BP 177/72; PULSE 59; RESP 22; TEMP 36.4; O2SAT 96
[2020-04-18 04:00] VITALS: BP 186/70; PULSE 56; RESP 20; TEMP 36.3; O2SAT 94
[2020-04-18] MEDS: hydrALAZINE HCL 20 MG/ML VIAL 10 MG IV PUSH (05:09)
[2020-04-18 06:36] LABS: Alanine Aminotransferase 46 U/L (4-35); Albumin Level 2.9 g/dL (3.5-5.1); Alkaline Phosphatase 86 U/L (38-126); Anion Gap 4 mmol/L (8-16); Aspartate Amino Transferase 69 U/L (14-36); Bilirubin,Total 0.5 mg/dL (0.2-1.3); Blood Urea Nitrogen 44 mg/dL (7-17); Calcium 9.2 mg/dL (8.4-10.2); Carbon Dioxide 23 mmol/L (22-30); Chloride 118 mmol/L (98-107); Estimated CRCL calculation 36 ml/min; Estimated Glomerular Filt Rate 47; Glucose 151 mg/dL (65-105); Hematocrit 35.9 % (37.0-47.0); Hemoglobin 12.1 g/dL (12.0-15.0); Mean Corpuscular HGB Conc 33.7 g/dl (32-36); Mean Corpuscular Hemoglobin 30.5 pg (26-34); Mean Corpuscular Volume 90.4 fl (80-100); Mean Platelet Volume 12.3 fl (7.4-10.4); Phosphorus 2.9 mg/dL (2.5-4.5); Platelet Count Result 183 k/mm3 (150-375); Red Blood Count 3.97 M/mm3 (4.2-5.4); Red Cell Distribution Width 14.6 % (11.5-14.5); Sodium 145 mmol/L (137-145); White Blood Count 13.5 K/mm3 (4.5-10.0)
[2020-04-18 08:00] VITALS: BP 157/61; PULSE 64; RESP 16; TEMP 36.4; O2SAT 93
[2020-04-18] MEDS: amLODIPine BESYLATE 5 MG TABLET PO (08:42)
[2020-04-18] MEDS: APIXABAN 5 MG TABLET 10 MG PO ×2 (08:43→20:17)
[2020-04-18] MEDS: CITALOPRAM HYDROBROMIDE 20 MG TABLET PO (08:43)
[2020-04-18] MEDS: CHOLECALCIFEROL 1,000 UNITS TABLET 5000 UNITS PO (08:43)
[2020-04-18] MEDS: levETIRAcetam 500 MG TABLET PO ×2 (08:44→20:18)
[2020-04-18] MEDS: DEXAMETHASONE SOD PHOS INJ 4 MG/ML VIAL 6 MG IV PUSH (08:44)
[2020-04-18] MEDS: VITAMIN E 400 UNIT CAPSULE PO (08:44)
[2020-04-18] MEDS: polyethylene glycoL 3350 17 GM POWD.PACK PO (08:44)
[2020-04-18] MEDS: MULTIVITAMINS THERAPEUTIC TAB (*BKC) 1 TABLET PO (08:44)
[2020-04-18] MEDS: POTASSIUM PHOS/SODIUM PHOS 250 MG TABLET PO (08:44)
[2020-04-18 08:47] LABS: Glucose Point of Care 130 (65-105)
--- NOTE | 2020-04-18 10:10 | P.PNNP_ITS ---
Progress Note: A&P Assessment and Plan (1) CHEVY (acute kidney injury): Code(s): N17.9 - Acute kidney failure, unspecified Status: Acute Assessment and Plan: * suspect due in large part ot volume depletion/dehydration * urine electrolytes consistent with prerenal azotemia * renal ultrasound unremarkable * creatinine is better. down to 1.1 now. (2) Hypernatremia: Code(s): E87.0 - Hyperosmolality and hypernatremia Status: Acute Assessment and Plan: * indicative of a severe/significant free water deficit * I suspect she is not eating and drinking. I put the breakfast tray in front of her and she does not seem interested in eating. I encouraged her to do so. * sodium is better. * I reduced d5w to 50/hr. (3) Pneumonia due to COVID-19 virus: Code(s): U07.1 - COVID-19; J12.82 - Pneumonia due to coronavirus disease 2018 Status: Acute Assessment and Plan: * presumed etiology of hypoxia * started on decadron * no a candidate for remdesivir due to CHEVY/ARF * follow respiratory status * on isolation (4) Altered mental status: Qualifiers: Altered mental status type: unspecified Qualified Code(s): R41.82 - Altered mental status, unspecified Code(s): R41.82 - Altered mental status, unspecified Status: Acute Assessment and Plan: * despite history of dementia, baseline mentation reportedly better that current status * suspect worsened mentation due to hypernatremia, COVID-19 infection, and UTI * follow with ongoing therapy (5) DVT (deep venous thrombosis): Qualifiers: DVT location: lower extremity Affected thrombotic vein of extremity: femoral Chronicity: acute Laterality: left Qualified Code(s): I82.412 - Acute embolism and thrombosis of left femoral vein Code(s): I82.409 - Acute embolism and thrombosis of unspecified deep veins of unspecified lower extremity Status: Acute Assessment and Plan: * left femoral and popliteal DVT noted by dopplers * on heparin gtt (6) Urinary tract infection: Qualifiers: Hematuria presence: without hematuria Urinary tract infection type: site unspecified Qualified Code(s): N39.0 - Urinary tract infection, site not specified Code(s): N39.0 - Urinary tract infection, site not specified Status: Acute Assessment and Plan: * urinalysis highly suggestive * on ceftriaxone. Subjective Date/time seen: 04/18/20 10:10 Interval history: alert. feels okay worked with PT/OT but wasn't able to stand. no swelling or sob. feels blah but not specific. no pain Exam Narrative: Exam Narrative: General: Elderly female in NAD Heart: normal S1 and S2; no rub Lungs: clear Abdomen: soft, nontender, nondistended, positive bowel sounds Extremities: no edema Skin:no rash or sq nodules Objective Data Vital Signs Vital Signs: Vital Signs - 24 hr 04/17/20 12:00 04/17/20 16:00 04/17/20 20:00 Temperature 36.4 C 36.2 C L 36.4 C Pulse Rate 65 60 63 Respiratory Rate 24 H 22 H 22 H Blood Pressure 156/73 H 185/68 H 180/71 H Pulse Oximetry 94 97 93 04/18/20 00:00 04/18/20 04:00 04/18/20 08:00 Temperature 36.4 C L 36.3 C L 36.4 C L Pulse Rate 59 L 56 L 64 Respiratory Rate 22 H 20 16 Blood Pressure 177/72 H 186/70 H 157/61 H Pulse Oximetry 96 9
--- NOTE | 2020-04-18 10:10 | PM.PNNEP ---
Progress Note: A&P Assessment and Plan (1) CHEVY (acute kidney injury): Code(s): N17.9 - Acute kidney failure, unspecified Status: Acute Assessment and Plan: suspect due in large part ot volume depletion/dehydration urine electrolytes consistent with prerenal azotemia renal ultrasound unremarkable creatinine is better. down to 1.1 now. (2) Hypernatremia: Code(s): E87.0 - Hyperosmolality and hypernatremia Status: Acute Assessment and Plan: indicative of a severe/significant free water deficit I suspect she is not eating and drinking. I put the breakfast tray in front of her and she does not seem interested in eating. I encouraged her to do so. sodium is better. I reduced d5w to 50/hr. (3) Pneumonia due to COVID-19 virus: Code(s): U07.1 - COVID-19; J12.82 - Pneumonia due to coronavirus disease 2019 Status: Acute Assessment and Plan: presumed etiology of hypoxia started on decadron no a candidate for remdesivir due to CHEVY/ARF follow respiratory status on isolation (4) Altered mental status: Qualifiers: Altered mental status type: unspecified Qualified Code(s): R41.82 - Altered mental status, unspecified Code(s): R41.82 - Altered mental status, unspecified Status: Acute Assessment and Plan: despite history of dementia, baseline mentation reportedly better that current status suspect worsened mentation due to hypernatremia, COVID-19 infection, and UTI follow with ongoing therapy (5) DVT (deep venous thrombosis): Qualifiers: DVT location: lower extremity Affected thrombotic vein of extremity: femoral Chronicity: acute Laterality: left Qualified Code(s): I82.412 - Acute embolism and thrombosis of left femoral vein Code(s): I82.409 - Acute embolism and thrombosis of unspecified deep veins of unspecified lower extremity Status: Acute Assessment and Plan: left femoral and popliteal DVT noted by dopplers on heparin gtt (6) Urinary tract infection: Qualifiers: Hematuria presence: without hematuria Urinary tract infection type: site unspecified Qualified Code(s): N39.0 - Urinary tract infection, site not specified Code(s): N39.0 - Urinary tract infection, site not specified Status: Acute Assessment and Plan: urinalysis highly suggestive on ceftriaxone. Subjective Date/time seen: 04/18/20 10:10 Interval history: alert. feels okay worked with PT/OT but wasn't able to stand. no swelling or sob. feels blah but not specific. no pain Exam Narrative: Exam Narrative: General: Elderly female in NAD Heart: normal S1 and S2; no rub Lungs: clear Abdomen: soft, nontender, nondistended, positive bowel sounds Extremities: no edema Skin:no rash or sq nodules Objective Data Vital Signs Vital Signs: Vital Signs - 24 hr 04/17/20 12:00 04/17/20 16:00 04/17/20 20:00 Temperature 36.4 C 36.2 C L 36.4 C Pulse Rate 65 60 63 Respiratory Rate 24 H 22 H 22 H Blood Pressure 156/73 H 185/68 H 180/71 H Pulse Oximetry 94 97 93 04/18/20 00:00 04/18/20 04:00 04/18/20 08:00 Temperature 36.4 C L 36.3 C L 36.4 C L Pulse Rate 59 L 56 L 64 Respiratory Rate 22 H 20 16 Blood Pressure 177/72 H 186/70 H 157/61 H Pulse Oximetry 96 94 93 Intake/Output Intake/Output: Intake & Output 04/15/20 04/16/20 04/17/20 04/18/20 23:59 23:59 23:59 23:59 Intake Total 2940 1800 3140 300 Output Total 3185 647 7211 850 Balance 6094 985 4716 -550 Meds/Results Medications: Active Medications Generic Name Dose Route Start Last Admin Trade Name Freq PRN Reason Stop Dose Admin Amlodipine Besylate 5 mg 04/18/20 09:00 04/18/20 08:42 Amlodipine Besylate 5 Mg Tablet PO 5 mg QAM JERI Administration Apixaban 5 mg 04/23/20 21:00 Apixaban 5 Mg Tablet PO Q12HR [facility] Apixaban 10 mg 04/16/20 21:00 04/18/20 08:43 Apixaban
[2020-04-18] MEDS: DEXTROSE 5% 1,000 ML 1,000 ML 75 ML IV CONT (10:34)
[2020-04-18 12:00] VITALS: BP 172/59; PULSE 59; RESP 16; TEMP 36.3; O2SAT 98
[2020-04-18 12:43] LABS: Glucose Point of Care 148 (65-105)
--- NOTE | 2020-04-18 14:45 | PM.IMPN ---
Progress Note: A&P Assessment and Plan (1) Altered mental status: Qualifiers: Altered mental status type: unspecified Qualified Code(s): R41.82 - Altered mental status, unspecified Code(s): R41.82 - Altered mental status, unspecified Status: Acute Assessment and Plan: Alert and oriented to herself only, but appears to be [facility] -it was likely worsened due to COVID-19 and UTI or earlier this stay -CT brain 04/14 without acute intracranial abnormalities. -04/14 did not wake to sternal rub but resting comfortably; 04/15 awake and speaking with me some; 04/16, 04/17, 04/18 able to carry a conversation albeit slowly (2) Pneumonia due to COVID-19 virus: Code(s): U07.1 - COVID-19; J12.82 - Pneumonia due to coronavirus disease 2019 Status: Acute Assessment and Plan: COVID positive 04/11/20. CXR shows evidence of bilateral pneumonia. -Continue dexamethasone (day 6). Remdesivir is contraindicated at this time given her renal failure. -patient on room air at 98% -likely causing her leukocytosis (3) Acute respiratory failure with hypoxia: Code(s): J96.01 - Acute respiratory failure with hypoxia Status: Acute Assessment and Plan: Resolved (4) DVT (deep venous thrombosis): Qualifiers: DVT location: lower extremity Affected thrombotic vein of extremity: femoral Chronicity: acute Laterality: left Qualified Code(s): I82.412 - Acute embolism and thrombosis of left femoral vein Code(s): I82.409 - Acute embolism and thrombosis of unspecified deep veins of unspecified lower extremity Status: Acute Assessment and Plan: Venous Doppler 04/13 demonstrates left femoral and popliteal DVT. She was started on heparin gtt on arrival. -started on Eliquis 10mg BID 04/16/20 (5) Urinary tract infection: Qualifiers: Hematuria presence: without hematuria Urinary tract infection type: site unspecified Qualified Code(s): N39.0 - Urinary tract infection, site not specified Code(s): N39.0 - Urinary tract infection, site not specified Status: Acute Assessment and Plan: Urine culture growing E coli. -Continue rocephin (day 6). Will stop tomorrow. -Blood cultures with no growth to date. (6) CHEVY (acute kidney injury): Code(s): N17.9 - Acute kidney failure, unspecified Status: Acute Assessment and Plan: Improving. Cr down to 1.1 today from 4.2 on arrival. -Suspect this may be related to dehydration. Appears she [facility], could have contributed. -Appreciate nephrology recommendations. - Renal ultrasound is unremarkable. -Diuretics held. -fluids will be stopped -Hamilton catheter will be removed. long-term states she does not usually have this (7) Acute hypernatremia: Code(s): E87.0 - Hyperosmolality and hypernatremia Status: Acute Assessment and Plan: Wax and wanes and will definitely be worse with thickened liquids -last sodium 145 -will stop dextrose IV fluids but because the patient is on thickened liquids, the risk of future dehydration is high -hopefully speech therapy can transition her to normal diet so she eats and drinks more. Once her quarantine is up for her COVID-19, would recommend modified barium swallow. (8) Dementia: Qualifiers: Dementia behavioral disturbance: without behavioral disturbance Dementia type: unspecified type Qualified Code(s): F03.90 - Unspecified dementia without behavioral disturbance Code(s): F03.90 - Unspecified dementia without behavioral disturbance Status: Chronic Assessment and Plan: CT brain without acute intracranial abnormalities. Continue home medications. (9) Left shoulder pain: Qualifiers: Chronicity: unspecified Qualified Code(s): M25.512 - Pain in left shoulder Code(s): M25.512 - Pa
[2020-04-18 16:00] VITALS: BP 180/68; PULSE 60; RESP 18; TEMP 36.9; O2SAT 96
[2020-04-18 17:04] LABS: Glucose Point of Care 202 (65-105)
[2020-04-18] MEDS: INSULIN ASPART (*BKC) 100 UNITS/ML SUB-Q (17:34)
[2020-04-18 20:00] VITALS: BP 174/66; PULSE 57; RESP 22; TEMP 36.3; O2SAT 97
[2020-04-18] MEDS: traZODone HCL 50 MG TABLET PO (20:17)
[2020-04-19] VITALS: BP 174/61; PULSE 57; RESP 22; TEMP 36.8; O2SAT 95
[2020-04-19 03:28] LABS: Cryoglobulin, QL Negative (Negative)
[2020-04-19 04:00] VITALS: BP 175/61; PULSE 52; RESP 22; TEMP 36.8; O2SAT 97
[2020-04-19 06:29] LABS: Hematocrit 31.9 % (37.0-47.0); Hemoglobin 10.9 g/dL (12.0-15.0); Mean Corpuscular HGB Conc 34.2 g/dl (32-36); Mean Corpuscular Hemoglobin 30.3 pg (26-34); Mean Corpuscular Volume 88.6 fl (80-100); Mean Platelet Volume 12.3 fl (7.4-10.4); Platelet Count Result 206 k/mm3 (150-375); Red Cell Distribution Width 13.9 % (11.5-14.5); White Blood Count 12.8 K/mm3 (4.5-10.0)
[2020-04-19 06:34] LABS: Alanine Aminotransferase 48 U/L (4-35); Albumin Level 2.5 g/dL (3.5-5.1); Alkaline Phosphatase 72 U/L (38-126); Anion Gap 2 mmol/L (8-16); Aspartate Amino Transferase 57 U/L (14-36); Bilirubin,Total 0.5 mg/dL (0.2-1.3); Blood Urea Nitrogen 38 mg/dL (7-17); Calcium 8.3 mg/dL (8.4-10.2); Carbon Dioxide 24 mmol/L (22-30); Chloride 112 mmol/L (98-107); Estimated CRCL calculation 39 ml/min; Estimated Glomerular Filt Rate 53; Glucose 141 mg/dL (65-105); Potassium 3.7 mmol/L (3.4-5.0); Sodium 138 mmol/L (137-145)
[2020-04-19] MEDS: DEXTROSE 5% 1,000 ML 1,000 ML 100 ML IVPB (06:47)
[2020-04-19 08:00] VITALS: BP 180/61; PULSE 55; RESP 24; TEMP 36.5; O2SAT 95
[2020-04-19 08:27] LABS: Glucose Point of Care 99 (65-105)
--- NOTE | 2020-04-19 08:30 | PCSTNOTE ---
Modified Barium Swallow study was canceled this date as she is unable to go to Radiology due to Covid positive. A MBS may be re-ordered and scheduled when patient is able to participate in the Radiology department.
[2020-04-19] MEDS: amLODIPine BESYLATE 5 MG TABLET PO (09:43)
[2020-04-19] MEDS: APIXABAN 5 MG TABLET 10 MG PO ×2 (09:43→20:18)
[2020-04-19] MEDS: CHOLECALCIFEROL 1,000 UNITS TABLET 5000 UNITS PO (09:44)
[2020-04-19] MEDS: DEXAMETHASONE SOD PHOS INJ 4 MG/ML VIAL 6 MG IV PUSH (09:44)
[2020-04-19] MEDS: CITALOPRAM HYDROBROMIDE 20 MG TABLET PO (09:44)
[2020-04-19] MEDS: polyethylene glycoL 3350 17 GM POWD.PACK PO (09:45)
[2020-04-19] MEDS: MULTIVITAMINS THERAPEUTIC TAB (*BKC) 1 TABLET PO (09:45)
[2020-04-19] MEDS: levETIRAcetam 500 MG TABLET PO ×2 (09:45→20:18)
[2020-04-19] MEDS: POTASSIUM PHOS/SODIUM PHOS 250 MG TABLET PO (09:45)
[2020-04-19] MEDS: VITAMIN E 400 UNIT CAPSULE PO (09:45)
[2020-04-19] MEDS: hydrALAZINE HCL 20 MG/ML VIAL 10 MG IV PUSH (09:46)
[2020-04-19 11:36] LABS: ANCA Screen Negative (Negative)
[2020-04-19 12:00] VITALS: BP 136/53; PULSE 62; RESP 24; TEMP 36.4; O2SAT 95
[2020-04-19 12:06] LABS: Glucose Point of Care 156 (65-105)
--- NOTE | 2020-04-19 13:49 | PM.IMPN ---
Progress Note: A&P Assessment and Plan (1) Altered mental status: Qualifiers: Altered mental status type: unspecified Qualified Code(s): R41.82 - Altered mental status, unspecified Code(s): R41.82 - Altered mental status, unspecified Status: Acute Assessment and Plan: Alert and oriented to herself only, but appears to be mentally at baseline according to the [facility] -it was likely worsened due to COVID-19 and UTI or earlier this stay -CT brain 04/14 without acute intracranial abnormalities. -04/14 did not wake to sternal rub but resting comfortably; 04/15 awake and speaking with me some; 04/16, 04/17, 04/18, 04/19 able to carry a conversation albeit slowly. (2) Pneumonia due to COVID-19 virus: Code(s): U07.1 - COVID-19; J12.82 - Pneumonia due to coronavirus disease 2019 Status: Acute Assessment and Plan: COVID positive 04/11/20. CXR shows evidence of bilateral pneumonia. -Continue dexamethasone (day 7). Remdesivir is contraindicated at this time given her renal failure. -patient on room air at 98% -likely causing her leukocytosis -Pt very weak from this as she used to be able to transfer by herself according to [place]. She will need SNF after this.spoke with cc -Will order brain MRI (3) Acute respiratory failure with hypoxia: Code(s): J96.01 - Acute respiratory failure with hypoxia Status: Acute Assessment and Plan: Resolved (4) DVT (deep venous thrombosis): Qualifiers: DVT location: lower extremity Affected thrombotic vein of extremity: femoral Chronicity: acute Laterality: left Qualified Code(s): I82.412 - Acute embolism and thrombosis of left femoral vein Code(s): I82.409 - Acute embolism and thrombosis of unspecified deep veins of unspecified lower extremity Status: Acute Assessment and Plan: Venous Doppler 04/13 demonstrates left femoral and popliteal DVT. She was started on heparin gtt on arrival. -started on Eliquis 10mg BID 04/16/20 (5) Urinary tract infection: Qualifiers: Hematuria presence: without hematuria Urinary tract infection type: site unspecified Qualified Code(s): N39.0 - Urinary tract infection, site not specified Code(s): N39.0 - Urinary tract infection, site not specified Status: Acute Assessment and Plan: Urine culture growing E coli. - 7 days of rocephin finished -Blood cultures with no growth (6) CHEVY (acute kidney injury): Code(s): N17.9 - Acute kidney failure, unspecified Status: Acute Assessment and Plan: Improving. Cr down to 1.0 today from 4.2 on arrival. -Suspect this may be related to dehydration. Appears she was also [facility]rox[place] [facility], could have contributed. -Appreciate nephrology recommendations. - Renal ultrasound is unremarkable. -Diuretics held. -fluids stopped 04/18 -Hamilton catheter removed. long-term states she does not usually have this (7) Acute hypernatremia: Code(s): E87.0 - Hyperosmolality and hypernatremia Status: Acute Assessment and Plan: Improving by the day -last sodium 138 -ST re-evaluated her since she is at high risk of dehydration with moderately thick liquids. 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 Once her quarantine is up for her COVID-19, would recommend modified barium swallow. (8) Dementia: Qualifiers: Dementia behavioral disturbance: without behavioral disturbance Dementia type: unspecified type Qualified Code(s): F03.90 - Unspecified dementia without behavioral disturbance Code(s): F03.90 - Unspecified dementia without behavioral disturbance Status: Chronic Assessment and Plan: CT brain without acute intracranial abnorm
[2020-04-19 16:00] VITALS: BP 144/61; PULSE 61; RESP 22; TEMP 36.4; O2SAT 94
[2020-04-19 17:41] LABS: Glucose Point of Care 161 (65-105)
[2020-04-19 20:00] VITALS: BP 166/63; PULSE 53; RESP 22; TEMP 36.5; O2SAT 97
[2020-04-19] MEDS: traZODone HCL 50 MG TABLET PO (20:19)
[2020-04-19 21:20] LABS: Glucose Point of Care 159 (65-105)
[2020-04-20] VITALS (7 sets, daily range): BP systolic 132–196; BP diastolic 49–90; PULSE 53–66; RESP 20–22; TEMP 36.2–36.7; O2SAT 96–100; BMI 10.0
[2020-04-20] MEDS: hydrALAZINE HCL 20 MG/ML VIAL 10 MG IV PUSH (04:47)
[2020-04-20 06:49] LABS: Hematocrit 36.1 % (37.0-47.0); Hemoglobin 12.2 g/dL (12.0-15.0); Mean Corpuscular HGB Conc 33.8 g/dl (32-36); Mean Corpuscular Hemoglobin 29.7 pg (26-34); Mean Corpuscular Volume 87.8 fl (80-100); Mean Platelet Volume 12.4 fl (7.4-10.4); Platelet Count Result 256 k/mm3 (150-375); Red Blood Count 4.11 M/mm3 (4.2-5.4); Red Cell Distribution Width 13.7 % (11.5-14.5); White Blood Count 14.6 K/mm3 (4.5-10.0)
[2020-04-20 07:03] LABS: Anion Gap 1 mmol/L (8-16); Blood Urea Nitrogen 39 mg/dL (7-17); Calcium 8.7 mg/dL (8.4-10.2); Carbon Dioxide 24 mmol/L (22-30); Chloride 111 mmol/L (98-107); Estimated CRCL calculation 48 ml/min; Estimated Glomerular Filt Rate > 60; Glucose 104 mg/dL (65-105); Magnesium 1.8 mg/dL (1.6-2.3); Phosphorus 3.4 mg/dL (2.5-4.5); Potassium 4.1 mmol/L (3.4-5.0); Sodium 136 mmol/L (137-145)
[2020-04-20 08:24] LABS: Glucose Point of Care 91 (65-105)
[2020-04-20] MEDS: DEXAMETHASONE SOD PHOS INJ 4 MG/ML VIAL 6 MG IV PUSH (09:13)
[2020-04-20] MEDS: CHOLECALCIFEROL 1,000 UNITS TABLET 5000 UNITS PO (09:15)
[2020-04-20] MEDS: CITALOPRAM HYDROBROMIDE 20 MG TABLET PO (09:17)
[2020-04-20] MEDS: POTASSIUM PHOS/SODIUM PHOS 250 MG TABLET PO (09:17)
[2020-04-20] MEDS: APIXABAN 5 MG TABLET 10 MG PO ×2 (09:19→20:54)
[2020-04-20] MEDS: VITAMIN E 400 UNIT CAPSULE PO (09:19)
[2020-04-20] MEDS: amLODIPine BESYLATE 5 MG TABLET 10 MG PO (09:20)
[2020-04-20] MEDS: polyethylene glycoL 3350 17 GM POWD.PACK PO (09:20)
[2020-04-20] MEDS: levETIRAcetam 500 MG TABLET PO ×2 (09:20→20:54)
[2020-04-20] MEDS: MULTIVITAMINS THERAPEUTIC TAB (*BKC) 1 TABLET PO (09:20)
[2020-04-20 10:22] LABS: Chloride Rand Ur <20 mmol/L (32-290); Creatinine Random Urine 154 mg/dL (20-275)
--- NOTE | 2020-04-20 11:36 | PCNFU ---
Nutrition Follow-Up Complete: Inadequate oral intake related to dementia as evidenced by poor PO intake reported. Goal: Patient to meet estimated nutritional needs. Progressing towards goal. We will continue current goal. Pt current nutrition is Minced and Moist, Level 5 with Mildly Thick liquids, Level 2. Last recorded weight is 81 kg,no new weight to report. Bowel Motility:+BM reported 04/19 Labs Reviewed:BUN 39,Na 136,Hct 36.1 Meds Noted:Miralax,Vit E, Vit D, Keppra, Norvasc, Celexa. Additional Notes: Nutrition follow up. Spoke with nursing today due to COVID positive. Patient is more alert today. She is a feeder, eating 50% of meal today which consisted of eggs, sausage, coffee and milk. Diet supplements continue as Ensure Compact BID providing an additional 220 kcals and 9 gms protein. Speech eval on 04/19. Diet orders changed to Minced and Moist, Level 5 with Mildly Thick liquids, Level 2. Agree with diet orders. Monitoring: patients labs, medications, weight, and oral intake every 5 days.
[2020-04-20 12:33] LABS: Glucose Point of Care 105 (65-105)
--- NOTE | 2020-04-20 15:45 | PM.IMPN ---
Progress Note: A&P Assessment and Plan (1) Altered mental status: Qualifiers: Altered mental status type: unspecified Qualified Code(s): R41.82 - Altered mental status, unspecified Code(s): R41.82 - Altered mental status, unspecified Status: Acute Assessment and Plan: Alert and oriented to herself only, but appears to be mentally at baseline according to [facility] [place] [facility] -it was likely worsened due to COVID-19 and UTI or earlier this stay -CT brain 04/14 without acute intracranial abnormalities. -04/14 did not wake to sternal rub but resting comfortably; 04/15 awake and speaking with me some; 04/16, 04/17, 04/18, 04/19, 04/20 able to carry a conversation albeit slowly and mostly off topic (2) Pneumonia due to COVID-19 virus: Code(s): U07.1 - COVID-19; J12.82 - Pneumonia due to coronavirus disease 2019 Status: Acute Assessment and Plan: COVID positive 04/11/20. CXR shows evidence of bilateral pneumonia. -Continue dexamethasone (day 8). Remdesivir is contraindicated at this time given her renal failure. -patient on room air at 96% -likely causing her leukocytosis -will check CXR tomorrow AM -Pt very weak from this as she used to be able to transfer by herself according to [place]. She will need SNF after this.spoke with cc -Brain MRI pending -May be ready for rehab in 1-2 days (3) Acute respiratory failure with hypoxia: Code(s): J96.01 - Acute respiratory failure with hypoxia Status: Acute Assessment and Plan: Resolved (4) DVT (deep venous thrombosis): Qualifiers: DVT location: lower extremity Affected thrombotic vein of extremity: femoral Chronicity: acute Laterality: left Qualified Code(s): I82.412 - Acute embolism and thrombosis of left femoral vein Code(s): I82.409 - Acute embolism and thrombosis of unspecified deep veins of unspecified lower extremity Status: Acute Assessment and Plan: Venous Doppler 04/13 demonstrates left femoral and popliteal DVT. She was started on heparin gtt on arrival. -started on Eliquis 10mg BID 04/16/20 (5) Urinary tract infection: Qualifiers: Hematuria presence: without hematuria Urinary tract infection type: site unspecified Qualified Code(s): N39.0 - Urinary tract infection, site not specified Code(s): N39.0 - Urinary tract infection, site not specified Status: Acute Assessment and Plan: Urine culture growing E coli. - 7 days of rocephin finished -Blood cultures with no growth (6) CHEVY (acute kidney injury): Code(s): N17.9 - Acute kidney failure, unspecified Status: Acute Assessment and Plan: Resolved. Cr normal today down from 4.2 on arrival. -Suspect this may be related to dehydration. Appears she was also [facility] [facility], could have contributed. - Renal ultrasound is unremarkable. -fluids stopped 04/18 -Hamilton catheter removed. USP states she does not usually have this (7) Acute hypernatremia: Code(s): E87.0 - Hyperosmolality and hypernatremia Status: Acute Assessment and Plan: Resolved -ST re-evaluated her since she is at high risk of dehydration with moderately thick liquids. 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 Once her quarantine is up for her COVID-19, would recommend modified barium swallow. (8) Dementia: Qualifiers: Dementia behavioral disturbance: without behavioral disturbance Dementia type: unspecified type Qualified Code(s): F03.90 - Unspecified dementia without behavioral disturbance Code(s): F03.90 - Unspecified dementia without behavioral disturbance Status: Chronic Assessment and Plan: CT brain without acute intracranial abnormali
--- NOTE | 2020-04-20 17:00 | PC.NURSE ---
Pt takes 10 mg torsemide daily at [facility]; prior to admission.
[2020-04-20] MEDS: FUROSEMIDE INJ 40 MG/4 ML VIAL 20 MG IV PUSH (17:34)
[2020-04-20 17:36] LABS: Glucose Point of Care 167 (65-105)
[2020-04-20 20:41] LABS: Glucose Point of Care 190 (65-105)
[2020-04-20] MEDS: traZODone HCL 50 MG TABLET PO (20:54)
[2020-04-21] VITALS: BP 138/63; PULSE 64; RESP 20; TEMP 36.3; O2SAT 96
[2020-04-21 04:00] VITALS: BP 147/60; PULSE 64; RESP 18; TEMP 36; O2SAT 99
[2020-04-21 08:28] LABS: Hematocrit 34.3 % (37.0-47.0); Hemoglobin 11.4 g/dL (12.0-15.0); Mean Corpuscular HGB Conc 33.2 g/dl (32-36); Mean Corpuscular Hemoglobin 29.5 pg (26-34); Mean Corpuscular Volume 88.9 fl (80-100); Mean Platelet Volume 11.1 fl (7.4-10.4); Platelet Count Result 357 k/mm3 (150-375); Red Blood Count 3.86 M/mm3 (4.2-5.4); White Blood Count 13.1 K/mm3 (4.5-10.0)
[2020-04-21 08:32] LABS: Glucose Point of Care 99 (65-105)
[2020-04-21 08:44] LABS: Alanine Aminotransferase 53 U/L (4-35); Albumin Level 2.9 g/dL (3.5-5.1); Alkaline Phosphatase 86 U/L (38-126); Anion Gap 2 mmol/L (8-16); Aspartate Amino Transferase 50 U/L (14-36); Bilirubin,Total 0.7 mg/dL (0.2-1.3); Blood Urea Nitrogen 43 mg/dL (7-17); CRP 1.5 mg/dL (<1.0); Calcium 8.7 mg/dL (8.4-10.2); Carbon Dioxide 27 mmol/L (22-30); Chloride 110 mmol/L (98-107); Estimated CRCL calculation 39 ml/min; Estimated Glomerular Filt Rate 53; Glucose 101 mg/dL (65-105); Lactate Dehydrogenase 1020 U/L (313-618); Magnesium 1.8 mg/dL (1.6-2.3); Phosphorus 3.6 mg/dL (2.5-4.5); Potassium 3.6 mmol/L (3.4-5.0); Sodium 139 mmol/L (137-145)
[2020-04-21] MEDS: CHOLECALCIFEROL 1,000 UNITS TABLET 5000 UNITS PO (09:18)
[2020-04-21] MEDS: APIXABAN 5 MG TABLET 10 MG PO (09:18)
[2020-04-21] MEDS: VITAMIN E 400 UNIT CAPSULE PO (09:18)
[2020-04-21] MEDS: CITALOPRAM HYDROBROMIDE 20 MG TABLET PO (09:19)
[2020-04-21] MEDS: amLODIPine BESYLATE 5 MG TABLET 10 MG PO (09:19)
[2020-04-21] MEDS: levETIRAcetam 500 MG TABLET PO (09:19)
[2020-04-21] MEDS: POTASSIUM PHOS/SODIUM PHOS 250 MG TABLET PO (09:19)
[2020-04-21] MEDS: DEXAMETHASONE SOD PHOS INJ 4 MG/ML VIAL 6 MG IV PUSH (09:20)
[2020-04-21] MEDS: polyethylene glycoL 3350 17 GM POWD.PACK PO (09:20)
[2020-04-21] MEDS: MULTIVITAMINS THERAPEUTIC TAB (*BKC) 1 TABLET PO (09:20)
--- NOTE | 2020-04-21 12:53 | PM.DS ---
DS: Admitting Diagnosis Admitting Diagnosis Admitting Diagnosis: COVID PNA DS: Discharge Diagnosis Discharge Diagnosis (1) Altered mental status: Qualifiers: Altered mental status type: unspecified Qualified Code(s): R41.82 - Altered mental status, unspecified Code(s): R41.82 - Altered mental status, unspecified Status: Acute Assessment and Plan: Alert and oriented to herself only, but appears to be [facility] at [facility] -it was likely worsened due to COVID-19 and UTI or earlier this stay -CT brain 04/14 without acute intracranial abnormalities. -04/14 did not wake to sternal rub but resting comfortably; 04/15 awake and speaking with me some; 04/16, 04/17, 04/18, 04/19, 04/20, 04/21 able to carry a conversation albeit slowly and mostly off topic (2) Pneumonia due to COVID-19 virus: Code(s): U07.1 - COVID-19; J12.82 - Pneumonia due to coronavirus disease 2019 Status: Acute Assessment and Plan: COVID positive 04/11/20. CXR shows evidence of bilateral pneumonia. -dexamethasone given but Remdesivir was not due to her renal failure. -patient on room air at 99% at discharge -dexamethasone likely causing her leukocytosis -CXR 04/21/20 showed patchy bibasilar airspace opacities and imroved right upper lobe opacities -Pt very weak from this as she used to be able to transfer by herself. Her prognosis is guarded but she was sent to SNF for rehab -Brain MRI with no acute abnormalities (3) Acute respiratory failure with hypoxia: Code(s): J96.01 - Acute respiratory failure with hypoxia Status: Acute Assessment and Plan: Resolved (4) DVT (deep venous thrombosis): Qualifiers: DVT location: lower extremity Affected thrombotic vein of extremity: femoral Chronicity: acute Laterality: left Qualified Code(s): I82.412 - Acute embolism and thrombosis of left femoral vein Code(s): I82.409 - Acute embolism and thrombosis of unspecified deep veins of unspecified lower extremity Status: Acute Assessment and Plan: Venous Doppler 04/13 demonstrates left femoral and popliteal DVT. She was started on heparin gtt on arrival. -started on Eliquis 10mg BID 04/16/20 and plan to transition to 5mg BID (5) Urinary tract infection: Qualifiers: Hematuria presence: without hematuria Urinary tract infection type: site unspecified Qualified Code(s): N39.0 - Urinary tract infection, site not specified Code(s): N39.0 - Urinary tract infection, site not specified Status: Acute Assessment and Plan: Urine culture growing E coli. - 7 days of rocephin finished -Blood cultures with no growth (6) CHEVY (acute kidney injury): Code(s): N17.9 - Acute kidney failure, unspecified Status: Acute Assessment and Plan: Resolved. Cr normal today down from 4.2 on arrival. -Suspect this may be related to dehydration. [facility], could have contributed. - Renal ultrasound is unremarkable. -fluids stopped 04/18 -Hamilton catheter removed. (7) Acute hypernatremia: Code(s): E87.0 - Hyperosmolality and hypernatremia Status: Acute Assessment and Plan: Resolved -ST re-evaluated her since she is at high risk of dehydration with moderately thick liquids. 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 Once her quarantine is up for her COVID-19, would recommend modified barium swallow. (8) Dementia: Qualifiers: Dementia behavioral disturbance: without behavioral disturbance Dementia type: unspecified type Qualified Code(s): F03.90 - Unspecified dementia without behavioral disturbance Code(s): F03.90 - Unspecified dementia
[2020-04-21 13:12] LABS: Glucose Point of Care 140 (65-105)
[2020-04-21 14:00] VITALS: BP 132/48; PULSE 66; RESP 16; TEMP 36.1; O2SAT 99
== END 2020-04-21 15:30 | DRG 177 ==
LOC: ANHED 10:43 → ANH3MEDSUR 11:58
PROVIDERS: Family Medicine; Internal Medicine Nephrology; Nurse Practitioner; Physician Assistant; Admitting Provider Internal Medicine; Emergency Provider Emergency Medicine; PCP Family Medicine; Visit Provider Physician Assistant
DX: U07.1 COVID-19 (principal); J12.82 Pneumonia due to coronavirus disease 2019; J96.01 Acute respiratory failure with hypoxia; G93.41 Metabolic encephalopathy; I82.412 Acute embolism and thrombosis of left femoral vein; I82.432 Acute embolism and thrombosis of left popliteal vein; N17.9 Acute kidney failure, unspecified; N39.0 Urinary tract infection, site not specified; E87.0 Hyperosmolality and hypernatremia; T50.2X5A Adverse effect of carbonic-anhydrase inhibitors, benzothiadiazides and other diuretics, initial encounter; T39.395A Adverse effect of other nonsteroidal anti-inflammatory drugs [NSAID], initial encounter; B96.20 Unspecified Escherichia coli [E. coli] as the cause of diseases classified elsewhere; E86.0 Dehydration; F03.90 Unspecified dementia, unspecified severity, without behavioral disturbance, psychotic disturbance, mood disturbance, and anxiety; M19.012 Primary osteoarthritis, left shoulder; F41.8 Other specified anxiety disorders; G40.909 Epilepsy, unspecified, not intractable, without status epilepticus; R73.9 Hyperglycemia, unspecified; T50.3X5A Adverse effect of electrolytic, caloric and water-balance agents, initial encounter; I10 Essential (primary) hypertension; R74.01 Elevation of levels of liver transaminase levels; Z66 Do not resuscitate; E78.5 Hyperlipidemia, unspecified; Z90.49 Acquired absence of other specified parts of digestive tract; Z90.710 Acquired absence of both cervix and uterus
CPT/HCPCS: 36415; 36600; 51701; 70450; 70551; 71045; 73200; 76775; 80048; 80053; 80069; 80074; 80076; 80177; 81001; 82436; 82550; 82570; 82595; 82728; 82805; 82948; 83036; 83520; 83615; 83735; 83930; 84100; 84295; 84300; 84439; 84443; 84480; 85025; 85027; 85380; 85610; 85652; 85730; 85999; 86021; 86038; 86060; 86140; 86160; 86162; 86215; 86225; 86706; 87040; 87077; 87086; 87088; 87186; 92526; 92610; 93005; 93970; 96374; 97110; 97161; 97165; 97530; 99285; A9270; J0360; J0696; J1100; J1644; J1815; J1940; J1953; J7030; J7070

== ENCOUNTER 2020-05-16 16:57 | Outpatient (NON) | payer MEDICARE, OTHER, SELFPAY ==
[2020-05-16 17:21] LABS: Add Urine Microscopic? YES; Appearance Urine Cloudy (Clear); Bacteria Urine 4+ /hpf; Bilirubin Urine Negative (Negative); Blood Urine Negative (Negative); Calcium Oxalate Crystals Urine Many /hpf; Color Urine Amber (Yellow); Glucose Urine UA Negative (Negative); Ketones Urine Negative (Negative); Leukocyte Esterase Ur 1+ LEU/UL (NEGATIVE); Mucus Urine Rare /lpf; Nitrate Urine Negative (Negative); Protein Urine Negative (Negative); Specific Grav Ur 1.014 (1.001-1.035); Squamous Epithelial Cell Urine Few /hpf (Few); WBC Urine 31-50 /hpf (0-3)
== END 2020-05-16 16:58 ==
PROVIDERS: PCP Family Medicine; Visit Provider Family Medicine
DX: N39.0 Urinary tract infection, site not specified (principal)
CPT/HCPCS: 81001; 87077; 87086; 87088; 87186

== ENCOUNTER 2020-05-30 11:41 | Emergency (ER) | payer MEDICARE, OTHER, SELFPAY ==
--- NOTE | ~2020-05-30 | CT_ITS ---
EXAMINATION: CT diagnostic chest wo con EXAM DATE: 05/30/2020 14:15 INDICATION: Abnormal chest x-ray, possible pneumothorax. Shortness of breath, right-sided hemiparesis . TECHNIQUE: Spiral CT of the chest without contrast. Axial, coronal and sagittal images were reviewe d. Coronal maximum intensity pixel images of chest reviewed. The dose-length product (DLP) for this examination was 317.65 mGy-cm. The exposure was tailored according to patient size (auto mA exposur e control), and iterative reconstruction (ASIR) was used as additional dose reduction technique. Comp arison is made to prior examination from 12/26/2019. FINDINGS: Elevated left hemidiaphragm, could indicate paralysis. There is adjacent segmental atelecta sis. There is mosaic attenuation involving both lungs. This is suspected to be most likely air trappi ng. Differential diagnosis for this includes air trapping (asthma, bronchiolitis obliterans), vascul itis, or groundglass opacity. Groundglass opacity can be caused acutely by edema, infection (PCP in an immunocompromised patients) or hemorrhage. It can also be caused by chronic processes such as hyp ersensitivity pneumonitis, nonspecific interstitial pneumonitis (NSIP), cryptogenic organized pneumon ia, desquamative interstitial pneumonitis(DIP). Difficult to determine whether there was some of this appearance present on the prior study. There is a small left pleural effusion. Tracheobronchial tree is patent. There is no mediastinal, hilar or axillary lymphadenopathy. There is no pneumothorax. Mild cardiomegaly. No evidence of c oronary arterial calcification. Upper abdomen is unremarkable. There is thoracic spondylosis witho ut osteoblastic or osteolytic lesions identified. IMPRESSION: 1. Chronic left hemidiaphragm elevation, could indicate paralysis. Adjacent subsegmental atelectasis . 2. Bilateral mosaic attenuation, probably air trapping but less likely considerations above. 3. Small left pleural effusion. 4. No pneumothorax. Reviewed, dictated and finalized at location A. IMPRESSION: 1. Chronic left hemidiaphragm elevation, could indicate paralysis. Adjacent sena bsegmental atelectasis. 2. Bilateral mosaic attenuation, probably air trapping but less likely conside rations above. 3. Small left pleural effusion. 4. No pneumothorax.
--- NOTE | ~2020-05-30 | XR_ITS ---
XR chest 2V 05/30/2020 12:36 Indication: Shortness of breath. Right-sided weakness. Procedure: 2 view chest Comparison: Findings: There is persistent bibasilar airspace disease. There is a layering pleural effusion. There is lucency superiorly and anteriorly on the lateral view, suspicious for loculated pneumothorax. The re is a right humeral neck fracture with nonunion and displacement. Borderline heart size. Impression: 1: Abnormal lucency anterior-superior aspect of the thorax on the lateral view which may represent a loculated pneumothorax, although no pleural reflection is identified on the AP view. Recommend furthe r evaluation with CT chest. 2: Pleural effusion. 3: Bibasilar airspace disease may represent atelectasis, residual edema and/or pneumonia. Reviewed, dictated and finalized at location B. Impression: 1: Abnormal lucency anterior-superior aspect of the thorax on the lateral view which may represent a loculated pneumothorax, although no pleural reflection is identified on the AP view. Recommend further evaluation with CT chest. 2: Pleural effusion. 3: Bibasilar airspace disease may represent atelectasis, residual edema and/or pneumonia.
--- NOTE | 2020-05-30 11:48 | ECG_ITS ---
Measurements Intervals [place] Rate: 65 P: 88 CA: 191 QRS: -36 QRSD: 139 T: 120 QT: 463 QTc: 484 Interpretive Statements SINUS RHYTHM LEFT AXIS DEVIATION INTRAVENTRICULAR CONDUCTION DELAY BORDERLINE R WAVE PROGRESSION, ANTERIOR LEADS LEFT VENTRICULAR HYPERTROPHY AND ST-T CHANGE BASELINE ARTIFACT- I, II, III, AVR, AVL, AVF, V1-V6 ABNORMAL ECG Electronically Signed On 05-30-2020 11:59:33 CDT by Josh Butler D.O.
[2020-05-30 11:49] VITALS: BP 120/89; PULSE 66; RESP 20; TEMP 36.6; O2SAT 100
--- NOTE | 2020-05-30 11:52 | ED.GENADULT ---
HPI - General Adult General Chief complaint: Shortness of Breath/Dyspnea Stated complaint: SOB/CP Source: EMS and RN notes reviewed Mode of arrival: EMS Limitations: clinical condition History of Present Illness HPI narrative: Patient is 84 years old white female brought to the emergency room by ambulance from [facility] because of chest pain and shortness of breath today. History of dementia, on 2 L of oxygen 22/09, history of deep vein thrombosis on Eliquis, patient also on aspirin Patient denies any fever, chills, nausea, vomiting, back pain or abdominal pain. Patient is DNR Related Data Home Medications Medication Instructions Recorded Confirmed cholecalciferol (vitamin D3) 125 5,000 unit PO DAILY 04/26/19 04/17/20 mcg (5,000 unit) capsule citalopram 20 mg tablet 20 mg PO DAILY 04/26/19 04/13/20 multivitamin 1 tablet PO DAILY 04/26/19 04/13/20 vitamin E 400 unit capsule 400 unit PO DAILY 04/26/19 04/17/20 Systane (PF) 1 drp OPHTHALMIC (EYE) BID 12/26/19 04/13/20 levetiracetam 500 mg PO BID 04/06/20 04/13/20 polyethylene glycol 1 ea MISCELLANEOUS DAILY 04/06/20 04/13/20 rosuvastatin 10 mg PO HS 04/06/20 04/13/20 torsemide 10 mg PO QAM 04/06/20 04/13/20 trazodone 50 mg PO HS 04/06/20 04/13/20 Allergies Allergy/AdvReac Type Severity Reaction Status Date / Time iodine Allergy Unknown Unknown Verified 04/13/20 09:26 meperidine Allergy Unknown Unknown Verified 04/13/20 20:40 Sulfa (Sulfonamide Allergy Unknown Unknown Verified 04/13/20 20:40 Antibiotics) acetaminophen [From Tylenol] Allergy Unknown Verified 04/13/20 20:40 Review of Systems Review of Systems: ROS unobtainable: Yes unobtainable due to mental status PMFSH Past Medical History Medical History Dementia Depression with anxiety History 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 She does have a living will that is a do not resuscitate. The patient is . She is from [facility]. Smoking status: Unknown if ever smoked Second hand tobacco smoke exposure: No Alcohol intake: unknown Substance use: unknown Substance use type: does not use Gender identity (if verbalized by the patient): Female Spiritual care concerns: No Exam Narrative: Exam Narrative: General appearance: Well-developed, well-nourished, does not look in labored breathing, oxygen by nasal cannula 2 L on Skin: Normal color, 3+ edema lower extremity bilaterally more on the left side Head: Normocephalic, nontraumatic Eyes: Blind left eye ENT: Oropharynx normal, ears normal, nose normal Neck: Supple, nontender Chest and respiratory: Airway patent, no respiratory distress, no accessory muscle use Heart: Regular rate/rhythm Abdomen: Soft, nontender, no organomegaly, quiet bowel sounds Vascular: Normal peripheral pulses, normal capillary refill. Musculoskeletal: Normal range of motion, nontender back Neurologic: Alert and oriented to her name only
[2020-05-30 12:19] LABS: Basophils Absolute Auto 0.1 K/mm3 (0.0-0.1); Basophils Percent Auto 0.9 % (0.2-1.2); Eosinophils Absolute Auto 0.4 K/mm3 (0-0.3); Eosinophils Percent Auto 3.3 % (0-4.4); Hematocrit 33.2 % (37.0-47.0); Hemoglobin 10.5 g/dL (12.0-15.0); Immature Granulocyte Absolute 0.06 K/mm3 (0.00-0.031); Immature Granulocyte Percent A 0.6 % (0-0.5); Lymphocytes Absolute Auto 2.97 K/mm3 (0.9-3.2); Lymphocytes Percent Auto 27.8 % (18.3-44.2); Mean Corpuscular HGB Conc 31.6 g/dl (32-36); Mean Corpuscular Hemoglobin 29.2 pg (26-34); Mean Corpuscular Volume 92.2 fl (80-100); Mean Platelet Volume 9.5 fl (7.4-10.4); Monocytes Absolute Auto 1.2 K/mm3 (0.1-0.6); Monocytes Percent Auto 10.9 % (2.6-8.5); Neutrophils Percent Auto 56.5 % (45.5-73.1); Platelet Count Result 359 k/mm3 (150-375); Red Cell Distribution Width 14.6 % (11.5-14.5); White Blood Count 10.7 K/mm3 (4.5-10.0)
[2020-05-30 12:29] LABS: Alveolar/Arterial O2 Gradient 45.8 mmHg; Base Excess ABG 3.1 mEq/l (+/-2.0); Fractional Inspired Oxygen 28 %; Oxygen Content ABG 15.2 %vol (16.0-22.0); Oxygen Saturation ABG 98.2 % (95.0-100.0); Oxyhemoglobin 97.1 % THb (90.0-100.0); PCO2 ABG 38.5 mmHg (35.0-45.0); PO2 ABG 108.4 mmHg (80.0-100.0); PO2 FiO2 Ratio Arterial Blood 3.87 %; Site Drawn RIGHT BRACHIAL; pH ABG 7.464 (7.350-7.450)
[2020-05-30 12:29] LABS: INR 1.9; Prothrombin Time 22.5 Seconds (11.1-14.7)
[2020-05-30 12:30] LABS: Device NASAL CANNULA
[2020-05-30 12:41] LABS: Potassium 3.2 mmol/L (3.4-5.0)
[2020-05-30 12:42] LABS: Lactic Acid Reflex 1.3 mmol/L (0.7-2.1)
[2020-05-30 12:47] LABS: Alanine Aminotransferase 12 U/L (4-35); Albumin Level 3.3 g/dL (3.5-5.1); Alkaline Phosphatase 132 U/L (38-126); Anion Gap 3 mmol/L (8-16); Aspartate Amino Transferase 28 U/L (14-36); Bilirubin,Total 0.3 mg/dL (0.2-1.3); Blood Urea Nitrogen 20 mg/dL (7-17); CRP 8.3 mg/dL (<1.0); Calcium 9.6 mg/dL (8.4-10.2); Carbon Dioxide 33 mmol/L (22-30); Chloride 103 mmol/L (98-107); Estimated CRCL calculation 30 ml/min; Estimated Glomerular Filt Rate 39; Glucose 129 mg/dL (65-105); Sodium 139 mmol/L (137-145)
[2020-05-30 12:56] VITALS: BP 129/65; PULSE 65; RESP 21; O2SAT 100
[2020-05-30 13:22] LABS: Add Urine Microscopic? YES; Appearance Urine Cloudy (Clear); Bilirubin Urine Negative (Negative); Blood Urine Negative (Negative); Color Urine Yellow (Yellow); Glucose Urine UA Negative (Negative); Hyaline Casts Urine 20-29 /lpf; Ketones Urine Negative (Negative); Leukocyte Esterase Ur Trace LEU/UL (Negative); Mucus Urine Rare /lpf; Nitrate Urine Negative (Negative); Protein Urine Negative (Negative); RBC Urine 0-2 /hpf (0-2); Specific Grav Ur 1.013 (1.001-1.035); Squamous Epithelial Cell Urine Rare /hpf (Few); Urobilinogen Urine Negative mg/dL (<2.0)
[2020-05-30 13:41] VITALS: BP 135/52; PULSE 68; RESP 20; O2SAT 98
[2020-05-30] MEDS: POTASSIUM CHLORIDE 20 MEQ PACKET (FOR LIQUID) 40 MEQ PO (13:56)
--- NOTE | 2020-05-30 14:07 | PC.NURSE ---
Pt to CT scan at this time.
[2020-05-30 14:59] VITALS: BP 132/49; PULSE 61; RESP 22; O2SAT 96
--- NOTE | 2020-05-30 15:16 | PC.NURSE ---
Spoke to Kelly (Daughter - POA), gave update on pt status. [phone]
[2020-05-30 15:52] LABS: Troponin I < 0.012 ng/mL (0.000-0.034)
[2020-05-30 15:57] VITALS: BP 136/46; PULSE 64; RESP 22; O2SAT 96
--- NOTE | 2020-05-30 16:22 | PC.NURSE ---
Called [facility] at [phone] and gave report/update on pt status. Spoke to Leora ARDON.
[2020-05-30 17:01] LABS: Troponin I < 0.012 ng/mL (0.000-0.034)
[2020-05-30 18:10] VITALS: BP 134/48; PULSE 68; RESP 21; O2SAT 95
[2020-05-30 23:00] LABS: SARS-CoV-2 RNA PCR Negative
== END 2020-05-30 19:11 ==
PROVIDERS: Emergency Provider Emergency Medicine; PCP Family Medicine
DX: Z20.822 Contact with and (suspected) exposure to COVID-19 (principal); R06.00 Dyspnea, unspecified; R94.31 Abnormal electrocardiogram [ECG] [EKG]; F03.90 Unspecified dementia, unspecified severity, without behavioral disturbance, psychotic disturbance, mood disturbance, and anxiety; F32.9 Major depressive disorder, single episode, unspecified; F41.9 Anxiety disorder, unspecified; G40.909 Epilepsy, unspecified, not intractable, without status epilepticus; E78.5 Hyperlipidemia, unspecified
CPT/HCPCS: 36415; 36600; 51701; 71046; 71250; 80053; 81001; 82805; 83605; 84484; 85025; 85610; 85730; 86140; 87040; 93005; 99284; A9270; C9803; U0003; U0005

== ENCOUNTER 2020-07-25 15:13 | Inpatient (IN) | payer MEDICARE, OTHER, SELFPAY ==
[2020-07-25] VITALS (8 sets, daily range): BP systolic 89–101; BP diastolic 42–59; PULSE 34–46; RESP 14–33; TEMP 29.6–31.2; O2SAT 94–100
--- NOTE | ~2020-07-25 | XR_ITS ---
. XR chest 1V portable 07/25/2020 20:45 Indication: Transient alteration of awareness Procedure: AP portable chest Comparison: Comparison to multiple prior studies sequentially, with oldest reviewed study dated 12/01. Findings: Diffuse bilateral airspace disease. Cardiomegaly. Small left pleural effusion. No pneumotho rax. 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 Impression: 1: Diffuse bilateral airspace disease which may represent pneumonia or edema. 2: Small left pleural effusion. Reviewed, dictated and finalized at location A. Impression: 1: Diffuse bilateral airspace disease which may represent pneumonia or edema. 2: Small left pleural effusion.
--- NOTE | 2020-07-25 15:15 | PC.NURSE ---
pt temperature was 85.3 F rectally. tech inserting temperature dietrich at this time.
--- NOTE | 2020-07-25 15:22 | ECG_ITS ---
Measurements Intervals [place] Rate: 36 P: 99 GA: 284 QRS: -25 QRSD: 133 T: 113 QT: 564 QTc: 437 Interpretive Statements SLOW SINUS BRADYCARDIA WITH FIRST DEGREE AV BLOCK ATRIAL PREMATURE COMPLEX INTRAVENTRICULAR CONDUCTION DELAY VOLTAGE CRITERIA FOR LVH BORDERLINE ST-T WAVE ABNORMALITY- HIGH LATERAL LEADS BASELINE ARTIFACT- I, II, III, AVR, AVL,A VF, V2-V2, V4-V6 ABNORMAL ECG Electronically Signed On 07-26-2020 11:41:21 CDT by Josh Butler D.O.
[2020-07-25] MEDS: SODIUM CHLORIDE 0.9% IV 1,000 ML 999 ML (15:43)
--- NOTE | 2020-07-25 15:44 | PC.NURSE ---
Family at bedside with EDP at this time, patient has current DNR signed. Family confirms that they request comfort measures only at this time.
--- NOTE | 2020-07-25 15:45 | PC.NURSE ---
Warmer placed on patient per EDP verbal order for comfort measures.
--- NOTE | 2020-07-25 15:50 | PC.NURSE ---
miguel dietrich removed per EDP for comfort measures due to code status.
[2020-07-25 16:53] LABS: Add Urine Microscopic? YES; Appearance Urine Cloudy (Clear); Bacteria Urine Trace /hpf; Bilirubin Urine Negative (Negative); Blood Urine 1+ (Negative); Color Urine Yellow (Yellow); Glucose Urine UA Negative (Negative); Ketones Urine Negative (Negative); Leukocyte Esterase Ur Trace LEU/UL (Negative); Mucus Urine Rare /lpf; Nitrate Urine Negative (Negative); Protein Urine 1+ mg/dL (Negative); Specific Grav Ur 1.016 (1.001-1.035); Squamous Epithelial Cell Urine Rare /hpf (Few); Urobilinogen Urine Negative mg/dL (<2.0); WBC Urine 0-3 /hpf
[2020-07-25 17:13] LABS: Basophils Percent Auto 0.2 % (0.2-1.2); Eosinophils Absolute Auto 0.1 K/mm3 (0-0.3); Eosinophils Percent Auto 1.3 % (0-4.4); Hematocrit 26.6 % (37.0-47.0); Hemoglobin 8.1 g/dL (12.0-15.0); Immature Granulocyte Absolute 0.04 K/mm3 (0.00-0.031); Immature Granulocyte Percent A 0.5 % (0-0.5); Immature Platelet Fraction Pct 6.5 % (0.9-11.2); Lymphocytes Absolute Auto 1.39 K/mm3 (0.9-3.2); Lymphocytes Percent Auto 16.5 % (18.3-44.2); Mean Corpuscular HGB Conc 30.5 g/dl (32-36); Mean Corpuscular Hemoglobin 28.3 pg (26-34); Mean Platelet Volume 11.2 fl (7.4-10.4); Monocytes Absolute Auto 0.3 K/mm3 (0.1-0.6); Monocytes Percent Auto 3.9 % (2.6-8.5); Neutrophils Absolute Auto 6.5 K/mm3 (1.3-6.7); Neutrophils Percent Auto 77.6 % (45.5-73.1); Nucleated Red Blood Cells Absolute Auto 0.1 K/mm3 (0.0-0.012); Nucleated Red Blood Cells Perc 1.1 % (0.0-0.2); Platelet Count Result 165 k/mm3 (150-375); Red Blood Count 2.86 M/mm3 (4.2-5.4); Red Cell Distribution Width 18.7 % (11.5-14.5); White Blood Count 8.4 K/mm3 (4.5-10.0)
[2020-07-25 17:34] LABS: Alanine Aminotransferase 21 U/L (4-35); Albumin Level 2.3 g/dL (3.5-5.1); Alkaline Phosphatase 109 U/L (38-126); Anion Gap 4 mmol/L (8-16); Aspartate Amino Transferase 38 U/L (14-36); Bilirubin,Total 0.2 mg/dL (0.2-1.3); Blood Urea Nitrogen 37 mg/dL (7-17); Calcium 9.9 mg/dL (8.4-10.2); Carbon Dioxide 29 mmol/L (22-30); Chloride 112 mmol/L (98-107); Estimated CRCL calculation 17 ml/min; Estimated Glomerular Filt Rate 19; Glucose 69 mg/dL (65-105); Sodium 145 mmol/L (137-145)
[2020-07-25] MEDS: SODIUM CHLORIDE 0.9% IV 1,000 ML 999 ML IV CONT (18:42)
--- NOTE | 2020-07-25 19:55 | PC.NURSE ---
Pt states that he presented to ED due to chest pain that onset at approx 1400 today. Denies nvd, sob, fever and chills at this time. Pt rates chest pain 1/10 at this time and states he feels better at this time. Pt resting on cart with spouse at bedside and is alert and oriented x4 with stable vitals and is in no obvious distress. Call button and personal items within reach. Pt advised to press call button for assistance.
--- NOTE | 2020-07-25 20:02 | ED.AMS ---
HPI - Altered Mental Status General Chief Complaint: Altered Mental Status Stated Complaint: LETHARGY Time Seen by Provider: 07/25/20 15:30 Source: EMS Mode of arrival: EMS Limitations: clinical condition History of Present Illness HPI narrative: 84-year-old female Arrives with little in the way of history from the paramedics or paperwork from her SNF Currently growing more lethargic for an undetermined amount of time Known that she is usually oriented x1, but seems more lethargic than that And she has recently been treated for decubiti Paperwork indicates that she is comfort measures Apparently the SNF was in communication with family who wanted her transported to the hospital it appears possibly more so she could be temporized so additional family members could reach her On arrival she is markedly hypothermic, she is bradycardic with a heart rate in the mid 30s Related Data Home Medications Medication Instructions Recorded Confirmed cholecalciferol (vitamin D3) 125 5,000 unit PO DAILY 04/26/19 04/17/20 mcg (5,000 unit) capsule citalopram 20 mg tablet 20 mg PO DAILY 04/26/19 04/13/20 multivitamin 1 tablet PO DAILY 04/26/19 04/13/20 vitamin E 400 unit capsule 400 unit PO DAILY 04/26/19 04/17/20 Systane (PF) 1 drp OPHTHALMIC (EYE) BID 12/26/19 04/13/20 levetiracetam 500 mg PO BID 04/06/20 04/13/20 polyethylene glycol 1 ea MISCELLANEOUS DAILY 04/06/20 04/13/20 rosuvastatin 10 mg PO HS 04/06/20 04/13/20 torsemide 10 mg PO QAM 04/06/20 04/13/20 trazodone 50 mg PO HS 04/06/20 04/13/20 Allergies Allergy/AdvReac Type Severity Reaction Status Date / Time iodine Allergy Unknown Unknown Verified 04/13/20 09:26 meperidine Allergy Unknown Unknown Verified 04/13/20 20:40 Sulfa (Sulfonamide Allergy Unknown Unknown Verified 04/13/20 20:40 Antibiotics) acetaminophen [From Tylenol] Allergy Unknown Verified 04/13/20 20:40 Review of Systems Review of Systems: ROS unobtainable: Yes unobtainable due to medical condition PMFSH Past Medical History Medical History Dementia Depression with anxiety History of brain tumor resected in 2002 and radiation History of DVT (deep vein thrombosis) History of meningioma Hyperlipidemia Seizure disorder Surgical History Surgical History H/O: hysterectomy History of appendectomy Hx of cholecystectomy Family History Family History Mother Hypertension Other Cerebrovascular accident Family history of arthritis Family history of mental disorder Social History Social History Social History: The patient's living well has her listed as a DNR. The patient has a son and daughter listed is unclear who is the power state's attorney. She does have a living will that is a do not resuscitate. The patient is . She is from [facility]. Smoking status: Unknown if ever smoked Second hand tobacco smoke exposure: No Alcohol intake: unknown Substance use: unknown Substance use type: does not use Gender identity (if verbalized by the patient): Female Spiritual care concerns: No Exam Const: General: cooperative, confusion and ill appearing Other: Frail, elderly HENMT: Head: normocephalic, atraumatic, no contusions and no hematomas Ears: external ears normal General nose exam: no epistaxis Mouth: Yes dry mucous membranes Eyes: Other: Status post enucleation left eye Neck: Neck: normal visual inspection, supple and no JVD Resp: Effort & Inspection: normal respiratory effort, not labored and tachypneic Auscultation: other (BS =) Cardio: Rate: regular rate and bradycardic Rhythm: regular rhythm Heart sounds: no murmurs GI: GI Palp: Yes Soft to palpation, No Tenderness to palpation present (GI), No Guarding due to palpation present (GI) and No
--- NOTE | 2020-07-25 21:05 | PC.NURSE ---
Repeat rectal temp done by radioisotope technologist. Temp 88 F. charted. Pt remains on Jefry Guzman.
--- NOTE | 2020-07-25 21:11 | PC.NURSE ---
Pt's c-collar removed by ED MD Gonzalez and MARIAN Martínez. [place] collar then applied without difficulty. pt tolerated well
--- NOTE | 2020-07-25 22:53 | ADMGEN ---
This patient, Emmy Tavarez, was admitted to [facility] Surg Room 315-01. Patient/family oriented to hospital policies and general routines including ID bracelet, bed and alarms, visiting hours, pain management, procedures, bathroom and other care routines, personal items, smoking policy, room service/diet, and visiting hours. Information on how to activate the Rapid Response Team has been discussed. Patient/Family are encouraged to report perceived risks to care and to ask questions if they do not understand what they are told or what they should do.
[2020-07-25] MEDS: LACTATED RINGERS 1,000 ML 100 ML IV CONT (23:33)
--- NOTE | 2020-07-25 23:38 | PM.IMHP ---
H&P: HPI History of Present Illness Date/Time: 07/25/20 23:38 the patient is here from [facility]. The patient has not been there very long. She is accompanied by her son. Patient who arrived to the emergency room with very little history from the paramedics her paperwork from her fdc. She has become more lethargic and she just hollering out at times yelling help me. She is only orientated x1. It patient recently has been treated for decubitus. The patient does have a decubitus on her left ankle. Paper work indicates comfort measures. She is a DNR. I spoke with the son and he is agreeable to comfort measures. And he said that he he would be willing to talk to somebody about hospice. However family members are scattered all over the place and they would like for the family members to get here before they decided to go to hospice. The patient was severely hypothermic and Jefry Hugger was placed on the patient. The patient's heart rate was down in the 30s and 40s. The family would like for the patient to have IV fluids continued. However we had a long discussion about the heart monitor. The son felt that he would be able to monitor her heart rate from the room. However explain to him that the heart monitor is at the nurses station and he would not be able to see her heart rate. We offered to allow him to use a pulse ox at the bedside said that he could see her heart rate. He stated he just wanted this to update the the family members. The patient is yelling out help me help me. I asked her she was in any discomfort she could not tell me where she was hurting. I gave her some warm blankets and that seemed to comfort her some. Were not able to use the Jefry Hugger at this time due to the amount of monitoring over require. H&H is 8.1 and 26.6 but does not appear to be actively bleeding. And the patient is typically on Eliquis. Her creatinine is 2.4 today previously was 1.3. The patient has a history of having her 1st COVID vaccine and then being tested positive for COVID. The patient's son believes that she has had her 2nd COVID vaccine now. Positive for COVID back in April of this year. The patient is being admitted to inpatient services on the date of service of 07/25/2020. Chief Complaint: Bradycardic hypodense and hypothermia Review of Systems Review of Systems: All systems reviewed & are unremarkable except as noted in HPI and below Constitutional: Constitutional: Reports as per HPI and Reports no additional constitutional complaints Eyes: Eyes: Reports as per HPI and Reports no additional eye complaints ENT: Reports system reviewed and no additional complaints, except as documented and Reports Normal hearing present Cardiovascular: Cardiovascular: Reports no additional cardiovascular complaints Respiratory: Respiratory: Reports no additional respiratory complaints and Reports no additional respiratory complaints Gastrointestinal: Gastrointestinal: Reports as per HPI and Reports no additional gastrointestinal complaints Musculoskeletal: Musculoskeletal: Reports no additional musculoskeletal complaints Integumentary/Breasts: Skin/Breast: Reports system reviewed and no additional complaints, except as docu and Reports as per HPI Neurologic: Reports system reviewed and no additional complaints, except as documented, Reports as per HPI and Reports Normal hearing present Psychiatric: Psychiatric: Reports no additional psychiatric complaints and Reports as per HPI Endocrine: Endocrine: Reports no additional endocrine complaints Hematologic/Lymphatic: Hematologic/Lymphatic: Reports no additional hematologic/lymphatic complaints Allergic/Immunologic: Allergic/Immunologic: Reports no additional allergic/immunologic complaints [facility] Past Medical History Medical History (Updated 07/25/20 @ 23:47 by Cara Alva NP) COVID-19 Dementia Depression with anxiety History of brain tumor resected in 2001 and radiatio
[2020-07-26 06:00] VITALS: BP 101/38; PULSE 48; RESP 16; TEMP 34.9; O2SAT 100
[2020-07-26 06:51] LABS: Basophils Percent Auto 0.4 % (0.2-1.2); Eosinophils Absolute Auto 0.2 K/mm3 (0-0.3); Eosinophils Percent Auto 2.1 % (0-4.4); Hematocrit 25.4 % (37.0-47.0); Hemoglobin 7.9 g/dL (12.0-15.0); Immature Granulocyte Absolute 0.04 K/mm3 (0.00-0.031); Immature Granulocyte Percent A 0.4 % (0-0.5); Lymphocytes Absolute Auto 1.32 K/mm3 (0.9-3.2); Lymphocytes Percent Auto 14.1 % (18.3-44.2); Mean Corpuscular HGB Conc 31.1 g/dl (32-36); Mean Corpuscular Hemoglobin 28.5 pg (26-34); Mean Corpuscular Volume 91.7 fl (80-100); Monocytes Absolute Auto 0.4 K/mm3 (0.1-0.6); Monocytes Percent Auto 4.7 % (2.6-8.5); Neutrophils Absolute Auto 7.3 K/mm3 (1.3-6.7); Neutrophils Percent Auto 78.3 % (45.5-73.1); Nucleated Red Blood Cells Absolute Auto 0.2 K/mm3 (0.0-0.012); Nucleated Red Blood Cells Perc 1.9 % (0.0-0.2); Platelet Count Result 146 k/mm3 (150-375); Red Blood Count 2.77 M/mm3 (4.2-5.4); Red Cell Distribution Width 18.6 % (11.5-14.5); White Blood Count 9.3 K/mm3 (4.5-10.0)
[2020-07-26 07:20] LABS: Alanine Aminotransferase 19 U/L (4-35); Albumin Level 2.1 g/dL (3.5-5.1); Alkaline Phosphatase 102 U/L (38-126); Anion Gap 3 mmol/L (8-16); Aspartate Amino Transferase 39 U/L (14-36); Bilirubin,Total 0.2 mg/dL (0.2-1.3); Blood Urea Nitrogen 36 mg/dL (7-17); Calcium 9.4 mg/dL (8.4-10.2); Carbon Dioxide 27 mmol/L (22-30); Chloride 116 mmol/L (98-107); Estimated CRCL calculation 18 ml/min; Estimated Glomerular Filt Rate 20; Glucose 48 mg/dL (65-105); Magnesium 1.8 mg/dL (1.6-2.3); Potassium 4.4 mmol/L (3.4-5.0); Sodium 146 mmol/L (137-145)
--- NOTE | 2020-07-26 08:48 | PM.IMPN ---
Progress Note: A&P Assessment and Plan (1) Need for comfort care: Status: Acute Assessment and Plan: Family at bedside, requesting no interventions with the exception of IV fluids. She appears comfortable. Please see subjective for further details. Care coordination following with plans for Hospice meeting today Analgesics and anxiolytics available as needed. (2) Septic shock: Code(s): A41.9 - Sepsis, unspecified organism; R65.21 - Severe sepsis with septic shock Status: Acute Assessment and Plan: Suspect secondary to infected pressure ulcers, supported by hypothermia, hypotension, and bradycardia. No need for further monitoring of vital signs or labs Family has declined antibiotics, pressors, or any other interventions Comfort care as above (3) Hypoglycemia: Code(s): E16.2 - Hypoglycemia, unspecified Status: Acute Assessment and Plan: She had a critically low glucose at 48 this morning and cannot tolerate PO intake. Family does not wish to proceed with further interventions, but do request IV fluids Will switch IV fluids to D5NS No further monitoring of blood sugars is necessary (4) History of DVT (deep vein thrombosis): Code(s): Z86.718 - Personal history of other venous thrombosis and embolism Status: Chronic Assessment and Plan: On chronic anticoagulation, which has been held as she is not tolerating oral intake and comfort care measures only. (5) Dementia: Qualifiers: Dementia behavioral disturbance: without behavioral disturbance Dementia type: unspecified type Qualified Code(s): F03.90 - Unspecified dementia without behavioral disturbance Code(s): F03.90 - Unspecified dementia without behavioral disturbance Status: Chronic Assessment and Plan: With progressive decline within the past year Subjective Date/time seen: 07/26/20 08:48 Interval history: Date of service: 07/26/2020 Emmy Tavarez is an 84-year-old female with a history of meningioma, seizure disorder, and dementia who is seen in follow-up for hypotension, bradycardia, and hypothermia. She is poorly responsive. She does open her eyes when I gently rubbed her shoulder and called her name. She does not provide any verbal response. She appears to be comfortable and is not agitated. Her family is present at the bedside. Her son was able to stay with her in the hospital last night and her daughter has arrived today. I had a long conversation with family about goals of care. They want her to be kept comfortable. They do not want to administer any medications. I informed them that her blood sugar was critically low this morning and they have declined to proceed with any intervention for this. They do not want any further lab draws. They do request to continue with IV fluids. They have requested to meet with Hospice today and this will be arranged. Family states that since she had COVID in April 2020, she began declining. She became more sedentary and then had issues with pressure ulcers from being bed bound. She became progressively more confused and less responsive. I have discussed this case with my supervising physician. Review of Systems Review of Systems: ROS unobtainable: Yes unobtainable due to medical condition Exam Narrative: Exam Narrative: General: thin, frail, acutely ill, lying comfortably in bed Neuro: Awakes to verbal and physical stimuli and opens her right eye. No verbal response. 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
--- NOTE | 2020-07-26 09:36 | PCDIET ---
Nutrition screen for wounds. Wounds noted: coccyx and bilateral heels. Family requesting no interventions, hospice consult. No further nutritional interventions at this time.
[2020-07-26] MEDS: DEXTROSE 5%/0.9% SOD CHL 1,000 ML 50 ML IV CONT (10:44)
--- NOTE | 2020-07-26 10:55 | PCWOUND ---
WOCN NOTE received consult to assess left heel. Spoke with Olimpia FONSECA, states that consult is not needed at this time. Patient's family requesting comfort measures.
--- NOTE | 2020-07-26 12:45 | PM.DS ---
DS: Admitting Diagnosis Admitting Diagnosis Admitting Diagnosis: Septic shock DS: Discharge Diagnosis Discharge Diagnosis (1) Need for comfort care: Status: Acute Assessment and Plan: Family at bedside, requesting no intervention. She appeared comfortable. Family requested hospice consultation and arranged care with [facility] hospice at [facility] (2) Septic shock: Code(s): A41.9 - Sepsis, unspecified organism; R65.21 - Severe sepsis with septic shock Status: Acute Assessment and Plan: Suspect secondary to infected pressure ulcers, supported by hypothermia, hypotension, and bradycardia. No need for further monitoring of vital signs or labs Family has declined antibiotics, pressors, or any other interventions Comfort care as above (3) Hypoglycemia: Code(s): E16.2 - Hypoglycemia, unspecified Status: Acute Assessment and Plan: She had a critically low glucose at 48 this morning and cannot tolerate PO intake. Family does not wish to proceed with further interventions, but did request IV fluids, therefore she was given D5NS. Later, family requested fluids be discontinued. No further monitoring of blood sugars is necessary (4) History of DVT (deep vein thrombosis): Code(s): Z86.718 - Personal history of other venous thrombosis and embolism Status: Chronic Assessment and Plan: On chronic anticoagulation, which has been held as she is not tolerating oral intake and comfort care measures only. (5) Dementia: Qualifiers: Dementia behavioral disturbance: without behavioral disturbance Dementia type: unspecified type Qualified Code(s): F03.90 - Unspecified dementia without behavioral disturbance Code(s): F03.90 - Unspecified dementia without behavioral disturbance Status: Chronic Assessment and Plan: With progressive decline within the past year DS: Summary Hospital Course Reason for hospitalization: Septic shock Hospital Course: Date of admission: 07/25/2020 Date of discharge: 07/26/2020 Emmy Tavarez is an 84-year-old female with a history of meningioma, seizure disorder, and dementia to the emergency department on 07/25/2020 from [facility] due to lethargy. It was noted that she had multiple decubitus ulcers that she was receiving treatment for. Family states that since she had COVID in April 2020, she began declining. She became more sedentary and then had issues with pressure ulcers from being bed bound. She became progressively more confused and less responsive. Upon presentation to the emergency department, she was markedly hypothermic, bradycardic, hypotensive, anemic, BUN and creatinine were elevated, additional electrolytes were stable, and CXR showed diffuse bilateral airspace disease with small left pleural effusion. She was admitted to the hospitalist service for comfort care measures only. Family did not wish to proceed with any interventions including antibiotics, pressors, or other form of treatment. Hospice care was arranged. Per [facility], she was determined not to meet criteria for inpatient hospice and it was recommended that she be discharged to [facility]. I discussed this with my supervising physician who was in agreement with discharge. Family is aware of risks of transportation given her hemodynamic instability, including en route, and wished to proceed with transfer to [facility]. She was discharged to hospice on 07/26/2020. Status at Discharge Functional status at discharge: bed bound Overall status at discharge: patient is not back to baseline Time Spent with Patient Time attestation: Total time spent providing and/or coordinating discharge services: 35 minutes Time spent: Greater than 30 minutes Exam Narrative: Exam Narrative: General: thin, frail, acutely ill, lying comfortably in bed Neuro: Awakes to verbal and physical stimuli and opens her right e
[2020-07-26 14:00] VITALS: PULSE 51; RESP 12; TEMP 36; O2SAT 97
== END 2020-07-26 18:45 | disposition hospice, home (50) | DRG 871 ==
LOC: ANHED 21:03 → ANH3MEDSUR 21:50
PROVIDERS: Nurse Practitioner; Admitting Provider Internal Medicine; Emergency Provider Emergency Medicine; PCP Family Medicine; Visit Provider Physician Assistant
DX: A41.9 Sepsis, unspecified organism (principal); R65.21 Severe sepsis with septic shock; N17.9 Acute kidney failure, unspecified; L89.529 Pressure ulcer of left ankle, unspecified stage; L08.9 Local infection of the skin and subcutaneous tissue, unspecified; E16.2 Hypoglycemia, unspecified; I10 Essential (primary) hypertension; F03.90 Unspecified dementia, unspecified severity, without behavioral disturbance, psychotic disturbance, mood disturbance, and anxiety; G40.909 Epilepsy, unspecified, not intractable, without status epilepticus; R68.0 Hypothermia, not associated with low environmental temperature; D64.9 Anemia, unspecified; E78.5 Hyperlipidemia, unspecified; F41.8 Other specified anxiety disorders; Z66 Do not resuscitate; Z86.718 Personal history of other venous thrombosis and embolism; Z86.16 Personal history of COVID-19; Z90.710 Acquired absence of both cervix and uterus; Z90.49 Acquired absence of other specified parts of digestive tract
CPT/HCPCS: 36415; 51701; 71045; 80053; 81001; 83735; 84443; 85025; 85055; 93005; 96360; 96361; 99285; A9270; J7030; J7042; J7120